=== PATIENT | female | born 1935 | race Hispanic/Latino ===

== ENCOUNTER 2017-05-06 21:31 | Emergency (ER) | payer MEDICARE ==
[2017-05-06 21:32] VITALS: BMI 33.5
[2017-05-06 22:22] VITALS: TEMP 98.2
[2017-05-06 22:29] LABS: ADD MANUAL DIFF? NO
--- NOTE | 2017-05-06 22:37 | ED PDOC ---
Arrival/HPI - General Historian: Patient - History of Present Illness Symptom Onset: Sudden Symptom Course: Unchanged Activities at Onset: Rest - General Chief Complaint: Dizziness/Lightheaded Time Seen by Provider: 05/06/17 21:53 - History of Present Illness Narrative History of Present Illness (Text): 05/06/17 22:38 A 81 year old female, whose past medical history includes open heart surgery, presents to the emergency department complaining of dizziness. Patient stated she was at dinner and felt dizzy which lasted for less than an hour. Patient currently doesn't feel dizzy. Patient notes never experienced feeling dizziness like this in past. Patient denies any chest pain, shortness of breath, cough, fever, vomiting, diarrhea or any other complaints at this time. PMD: Dr. Barbosa Cardiology: Dr. Barajas and Dr. Zamudio (Lane Santos) Associated Symptoms (Text): none (Lane Santos) Past Medical History - Provider Review Nursing Documentation Reviewed: Yes - Cardiac Hx Atrial Fibrillation: Yes Hx Hypotension: Yes Hx Pacemaker: No - Pulmonary Hx Respiratory Disorders: No - Neurological Hx Paralysis: No - HEENT Hx HEENT Disorder: No - Renal Hx Renal Disorder: No - Hematological/Oncological Hx Blood Transfusions: No Hx Blood Transfusion Reaction: No - Integumentary Hx Dermatological Disorder: No - Musculoskeletal/Rheumatological Hx Musculoskeletal Disorders: Yes - Gastrointestinal Hx Gastrointestinal Disorders: No - Genitourinary/Gynecological Hx Genitourinary Disorders: No - Psychiatric Hx Emotional Abuse: No Hx Physical Abuse: No Hx Substance Use: No - Surgical History Hx Cardiac Catheterization: Yes Hx Coronary Artery Bypass Graft: Yes Hx Coronary Stent: Yes - Anesthesia Hx Anesthesia Reactions: No Hx Malignant Hyperthermia: No - Suicidal Assessment Feels Threatened In Home Enviroment: No Family/Social History - Physician Review Nursing Documentation Reviewed: Yes Family/Social History: No Known Family HX Smoking Status: Never Smoked Hx Alcohol Use: No Hx Substance Use: No Allergies/Home Meds Allergies/Adverse Reactions: Allergies No Known Allergies Allergy (Verified 06/05/12 09:10) Home Medications: Home Meds Medication Instructions Recorded Confirmed Sitagliptin Phosphate [Januvia] 100 mg PO DAILY 08/22/13 05/09/17 Aspirin [Lo-Dose Aspirin EC] 81 mg PO DAILY 04/14/17 05/09/17 Famotidine [Heartburn Prevention] 10 mg PO DAILY PRN 04/14/17 05/09/17 Glimepiride [Amaryl] 1 mg PO QPM 04/14/17 05/09/17 Glimepiride [Amaryl] 2 mg PO DAILY 04/14/17 05/09/17 Memantine HCl/Donepezil HCl 1 cap PO BID 04/14/17 05/09/17 [Namzaric 7 mg-10 mg Capsule] Metoprolol Tartrate [Lopressor] 50 mg PO BID 04/14/17 05/09/17 Valsartan [Diovan] 80 mg PO DAILY 04/14/17 05/09/17 Apixaban [Eliquis] 5 mg PO BID 05/05/17 05/09/17 Gabapentin [Neurontin] 100 mg PO BID 05/05/17 05/09/17 Review of Systems - Physician Review All systems were reviewed & negative as marked: Yes - Review of Systems Constitutional: absent: Fevers Respiratory: absent: SOB, Cough Cardiovascular: absent: Chest Pain Gastrointestinal: absent: Diarrhea Neurological: Dizziness. absent: Headache Physical Exam Vital Signs Reviewed: Yes Temperature: Afebrile Blood Pressure: Hypotensive Pulse: Regular Respiratory Rate: Normal Appearance: Positive for: Well-Appearing, Non-Toxic, Comfortable Pain Distress: None Mental Status: Positive for: Alert and Oriented X 3 - Systems Exam Head: Present: Atraumatic, Normocephalic Pupils: Present: PERRL Extroacular Muscles: Present: EOMI Conjunctiva: Present: Normal Mouth: Present: Moist Mucous Membranes Neck: Present: Normal Range of Motion Respiratory/Chest: Present: Clear to Auscultation, Good Air Exchange. No: Respiratory Distress, Accessory Muscle Use Cardiovascular: Present: Regular Rate and Rhythm, Normal S1, S2. No: Murmurs Abdomen: Present: Normal Bowel Sounds. No: Tenderness, Distention, Peritoneal Signs Back: Present: Normal Inspection Upper Extremity: Present: Normal Inspection. No: Cyanosis, Edema Lower Extremity: Present: Normal Inspection. No: Edema Neurological: Present: GCS=15, CN II-XII Intact, Speech Normal Skin: Present: Warm, Dry, Normal Color. No: Rashes Psychiatric: Present: Alert, Oriented x 3, Normal Insight, Normal Concentration Medical Decision Making - Lab Interpretations I have reviewed the lab results: Yes - EKG Interpretation Interpreted by ED Physician: Yes Type: 12 lead EKG ED Course and Treatment: 05/06/17 22:46 EKG: Ordered, reviewed, and independently interpreted the EKG. Rate : 82 BPM Rhythm : Atrial fibrillation Interpretation : Non-specific ST/T wave changes Comparison : Similar to EKG on 10/04/13 CT Head Without Intravenous Contrast FINDINGS: Brain: There is dilatation of sulci gyri and ventricles. There is no midline shift. There is decreased attenuation in periventricular white matter. There are basal ganglia calcifications. There are no focal masses. There are no focal hemorrhages. Cortes-white differentiation is visualized. Ventricles: See above. Bones: Cranial vault is intact. Soft tissues: unremarkable Sinuses: There is no acute sinusitis. Ears and mastoids: Middle ears and mastoids are unremarkable. Orbits: Orbital contents are unremarkable. IMPRESSION: Atrophy and small vessel disease, no bleed Dictated and Authenticated by: Sonya Dias MD 05/07/2017 12:37 AM Eastern Time ([place] & [place]) 05/07/17 00:33 Disc results w the pt and her family. She is resting comfortably, well-appearing , no complaints at this time. They are comfortable w dc home, po abx, pcp f/u, return if worse. (Lane Santos) - Lab Interpretations Microbiology Results: Microbiology Results 05/06/17 22:30 Urine,Clean Catch Urine Culture - Final Escherichia Coli Lab Results: 05/06/17 22:15 05/06/17 22:15 Lab Results 05/06/17 22:30: Urine Color Yellow, Urine Appearance Sl cloudy, Urine pH 6.0, Ur Specific [place] >= 1.030, Urine Protein 30 H, Urine Glucose (UA) Negative, Urine Ketones Trace H, Urine Blood Trace-intact H, Urine Nitrate Positive H, Urine Bilirubin Small H, Urine Urobilinogen 1.0 H, Ur Leukocyte Esterase Moderate H, Urine RBC 2 - 5, Urine WBC Tntc, Ur Epithelial Cells 1 - 3, Urine Bacteria Many 05/06/17 22:15: Sodium 139, Potassium 4.0, Chloride 103, Carbon Dioxide 27, Anion Gap 13, BUN 21, Creatinine 0.9, Est GFR ( Amer) > 60, Est GFR (Non- Af Amer) > 60, Random Glucose 145 H, Calcium 8.7, Total Bilirubin 0.6, AST 28, ALT 24, Alkaline Phosphatase 59, Troponin I < 0.01, Total Protein 7.2, Albumin 3.8, Globulin 3.4, Albumin/Globulin Ratio 1.1 05/06/17 22:15: D-Dimer, Quantitative 0.24 05/06/17 22:15: WBC 8.5, RBC 4.71, Hgb 14.3, Hct 42.7, MCV 90.7, MCH 30.4, MCHC 33.5, RDW 14.0, Plt Count 175, MPV 10.7, Gran % 60.1, Lymph % (Auto) 30.5, [place] % (Auto) 7.3 H, Eos % (Auto) 1.5, Baso % (Auto) 0.6, Gran # 5.09, Lymph # 2.6, [place] # 0.6, Eos # 0.1, Baso # 0.05 - RAD Interpretation Radiology Orders: 05/06/17 22:01 CHEST PORTABLE [RAD] Stat 05/06/17 22:02 HEAD W/O CONTRAST [CT] Stat - Medication Orders Current Medication Orders: Discontinued Medications Ceftriaxone Sodium (Rocephin 1 Gram Ivpb) 1 gm in 100 mls @ 200 mls/hr IVPB STAT STA PRN Reason: Protocol Stop: 05/07/17 00:29 Last Admin: 05/07/17 00:32 Dose: 200 mls/hr Sodium Chloride (Sodium Chloride 0.9%) 1,000 mls @ 999 mls/hr IV .Q1H1M STA Stop: 05/07/17 01:01 Last Admin: 05/07/17 00:32 Dose: 999 mls/hr - Scribe Statement The provider has reviewed the documentation as recorded by the Scribe - Scribe Statement Michael Huang Provider Scribe Attestation: All medical record entries made by the Scribe were at my direction and personally dictated by me. I have reviewed the chart and agree that the record accurately reflects my personal performance of the history, physical exam, medical decision making, and the department course for this patient. I have also personally directed, reviewed, and agree with the discharge instructions and disposition. (Radwine,Lane P) Disposition/Present on Arrival - Present on Arrival Any Indicators Present on Arrival: No History of DVT/PE: No History of Uncontrolled Diabetes: No Urinary Catheter: No History of Decub. Ulcer: No History Surgical Site Infection Following: None - Disposition Have Diagnosis and Disposition been Completed?: Yes Disposition Time: 00:44 - Disposition Diagnosis: UTI (urinary tract infection) Disposition: HOME/ ROUTINE Condition: STABLE Discharge Instructions (ExitCare): Urinary Tract Infection in Women (ED) Additional Instructions: Please follow up with your doctor. Return to the ER for any worsening symptoms, fever, vomiting, or for any other concerns. Referrals: Eunice Barbosa MD [Primary Care Provider] - Follow up with primary Addendum Addendum: 05/10/17 14:46 UC +E. coli. Pt was DC home with Keflex. (Blaise Van)
[2017-05-06 22:40] LABS: BASO # 0.05 K/mm3 (0.0-2.0); BASO % 0.6 % (0.0-3.0); EOS # 0.1 (0.0-0.7); EOS % 1.5 % (1.5-5.0); GRAN # 5.09 (1.4-6.5); GRAN % 60.1 % (50.0-68.0); HEMATOCRIT 42.7 % (36.0-48.0); LYMPH # 2.6 (1.2-3.4); LYMPH % 30.5 % (22.0-35.0); MEAN CELL VOLUME 90.7 fL (80.0-105.0); MEAN CORPUSCULAR HEMOGLOBIN 30.4 pg (25.0-35.0); MEAN CORPUSCULAR HGB CONC 33.5 g/dl (31.0-37.0); MEAN PLATELET VOLUME 10.7 fl (7.0-11.0); MONO # 0.6 (0.1-0.6); MONO % 7.3 % (1.0-6.0); PLATELET COUNT 175 10^3/uL (120.0-450.0); WHITE BLOOD COUNT 8.5 10^3/ul (4.5-11.0)
[2017-05-06 22:51] LABS: ALB/GLOB RATIO 1.1 (1.1-1.8); ALKALINE PHOSPHATASE 59 U/L (38-133); ALT/SGPT 24 U/L (7-56); AST/SGOT 28 U/L (15-39); BILIRUBIN,TOTAL 0.6 mg/dL (0.2-1.3); BLOOD UREA NITROGEN 21 mg/dL (7-21); CALCIUM 8.7 mg/dL (8.4-10.5); CARBON DIOXIDE 27 mmol/L (21-33); CHLORIDE 103 mmol/L (98-107); GFR AFRICAN-AMERICAN > 60; GLUCOSE,RANDOM 145 mg/dL (70-110); SODIUM 139 mmol/L (132-148); TOTAL PROTEIN 7.2 g/dL (5.8-8.3)
[2017-05-06 22:51] LABS: URINE BILIRUBIN SMALL (NEGATIVE); URINE BLOOD TRACE-INTACT (NEGATIVE); URINE GLUCOSE (UA) NEGATIVE (NEGATIVE); URINE KETONE TRACE mg/dL (NEGATIVE); URINE LEUKOCYTE ESTERASE MODERATE Leu/uL (NEGATIVE); URINE PROTEIN 30 mg/dL (<30 mg/dL)
[2017-05-06 22:55] LABS: URINE APPEARANCE SL CLOUDY (CLEAR); URINE COLOR YELLOW (YELLOW)
[2017-05-06 23:02] LABS: URINE BACTERIA MANY (NEG); URINE WBC TNTC /hpf (0-6)
[2017-05-06 23:05] LABS: TROPONIN I < 0.01 ng/mL
[2017-05-07] MEDS ORDERED: cefTRIAXone 1 gm 1 GM/100 ML BAG IVPB STA
[2017-05-07] MEDS ORDERED: Sodium Chloride 0.9% 1,000 ML IV STA (00:01)
--- NOTE | 2017-05-07 00:37 | CT ---
EXAM: CT Head Without Intravenous Contrast CLINICAL HISTORY: 81 years old, female; Signs and symptoms; Dizziness; Additional info: Dizzy TECHNIQUE: Axial computed tomography images of the head/brain without intravenous contrast. This CT exam was performed using one or more of the following dose reduction techniques: automated exposure control, adjustment of the mA and/or kV according to patient size, and/or use of iterative reconstruction technique. EXAM DATE/TIME: 05/06/2017 10:02 PM COMPARISON: MR - BRAIN W WO CONTRAST 08/09/2016 11:36:22 AM FINDINGS: Brain: There is dilatation of sulci gyri and ventricles. There is no midline shift. There is decreased attenuation in periventricular white matter. There are basal ganglia calcifications. There are no focal masses. There are no focal hemorrhages. Cortes-white differentiation is visualized. Ventricles: See above. Bones: Cranial vault is intact. Soft tissues: unremarkable Sinuses: There is no acute sinusitis. Ears and mastoids: Middle ears and mastoids are unremarkable. Orbits: Orbital contents are unremarkable. IMPRESSION: Atrophy and small vessel disease, no bleed
[2017-05-07 01:54] VITALS: BP 140/64; PULSE 77; RESP 16; O2SAT 95
--- NOTE | 2017-05-07 08:40 | RAD ---
HISTORY: Lightheaded COMPARISON: None available. TECHNIQUE: Chest, one view. FINDINGS: Three external cardiac leads identified. LUNGS: No focal consolidation. Please note that chest x-ray has limited sensitivity for the detection of pulmonary masses. PLEURA: No significant pleural effusion identified. No definite pneumothorax . CARDIOVASCULAR: Cardiomegaly. Median sternotomy wires. OSSEOUS STRUCTURES: No acute osseous abnormality identified. VISUALIZED UPPER ABDOMEN: Unremarkable. OTHER FINDINGS: None. IMPRESSION: No focal consolidation, significant pleural effusion, or definite pneumothorax identified.
--- NOTE | 2017-05-07 15:51 | CARD ---
APPROVED REPORT EKG Measurement Heart [id number] <Conclusion> Atrial fibrillation ST & T wave abnormality, consider inferolateral ischemia or digitalis effect Abnormal ECG
== END 2017-05-07 01:57 | disposition home or self-care (01) ==
LOC: ED 21:31
DX: N39.0 Urinary tract infection, site not specified (principal); I95.9 Hypotension, unspecified; Z95.1 Presence of aortocoronary bypass graft
CPT/HCPCS: 70450; 71010; 80053; 81001; 84484; 85025; 85378; 87086; 87181; 93005; 96365; 99285; J0696; J7040

== ENCOUNTER 2017-05-09 09:31 | Day surgery (SDC) | payer MEDICARE ==
[2017-05-09] MEDS ORDERED: Midazolam 2 MG/2 ML VIAL ONE (11:50)
[2017-05-09] MEDS ORDERED: Metoprolol 1 mg/ml Inj IVP ONE (11:51)
[2017-05-09] MEDS ORDERED: Flumazenil 0.1 mg/ml Inj (5ml) IVP ONE ×2 (11:51→12:32)
[2017-05-09] MEDS ORDERED: Naloxone 0.4 mg/ml Inj (Adult) ONE (11:51)
[2017-05-09] MEDS ORDERED: Midazolam 2 MG/2 ML VIAL IV ONE ×3 (12:02→12:16)
--- NOTE | 2017-05-09 12:43 | CP.SDSHP ---
Same Day Surgery H & P - History Proposed Procedure: insertion of venous port. Pre-Op Diagnosis: iron defficiency anemia. - Previous Medical/Surgical History Cardiac: Hypertension, ASHD/CAD, Hx of CHF Pulmonary: Emphysema/COPD, Smoking Endocrine/Metabolic: Diabetes, Obesity Neuro: Seizure Disorder, Backaches Misc: Anemia Pain: 0. No Pain Comments: colon resection.ptca. Previous Surgical History: PTCA.COLON RESECTION. - Allergies Allergies: Allergies No Known Allergies Allergy (Verified 06/05/12 09:10) - Physical Exam General Appearance: WNL. Vital Signs: Vital Signs 05/09/17 10:04 Temperature 97.5 F L Pulse Rate 85 Respiratory 20 Rate Blood Pressure 137/79 O2 Sat by Pulse 96 Oximetry Mental Status: Alert & Oriented x3 Neuro: WNL Heart: WNL Lungs: WNL GI: WNL - {Optional Preform as Required} Other Pertinent Findings: depression . parkinsonism hx of syncopesleep apnea. - Impression Impression: IRON DEFFICIENCY ANEMIA. - Date & Time Date: 05/09/17 Time: 12:40 Short Stay Discharge - Short Stay Discharge Admitting Diagnosis/Reason for Visit: A FIB Disposition: HOME/ ROUTINE Referrals: Eunice Barbosa MD [Primary Care Provider] -
[2017-05-09] MEDS ORDERED: Sodium Chloride 0.9% 1,000 ML IV SCH (12:45)
[2017-05-09 13:58] VITALS: RESP 18; TEMP 97.8; O2SAT 92
[2017-05-09 14:13] VITALS: BP 118/41; PULSE 50
--- NOTE | 2017-05-09 18:31 | CARD ---
APPROVED REPORT EXAM: Transesophageal echocardiogram with color flow Doppler and Synchronized Cardioversion. INDICATION Atrial Fibrillation 2D DIMENSIONS Left Atrium (2D)5.6 (1.6-4.0cm) Mitral Valve E/A ratio0.0 TDI E/Lateral E'0.0E/Medial E'0.0 Tricuspid Valve TR Peak Zsycedot790xm/sRAP [id number] Peak Gr.23mmHg [id number] Reason For Test : ZEKE and Cardioversion PROCEDURE After obtaining informed consent, patient underwent transesophageal echo in the Echo Lab. Type of Sedation : Conscious Sedation Sedation was administered by Dr. Zamudio. Sedation was achieved with Versed and , Fentanyl 3 mg and 100 mcg intravenously. Transesophageal probe was inserted and advanced into esophagus without difficulty. Echo enhancement indication: R/O Septal defect. Echo enhancement agent administered: Agitated Saline The ZEKE was performed without complications. Synchronized Cardioversion attempted: Successful Synchronized Cardioversion acheived with 200 Joules after first attempt(s). Rhythm following Synchronized Cardioversion: Normal Sinus Rhythm Throughout the procedure, the blood pressure, pulse oximetry, cardiac rhythm, and rate were monitored. The patient tolerated the procedure without adverse effects. Recovery from conscious sedation was uneventful and vital signs were stable. LEFT VENTRICLE The left ventricle is normal size. There is mild left ventricular hypertrophy. The left ventricular function is normal.EF-55% ( A fib) There is normal LV segmental wall motion. A fib No left ventricle thrombus noted on this study. There is no ventricular septal defect visualized. There is no left ventricular aneurysm. There is no mass noted in the left ventricle. RIGHT VENTRICLE The right ventricle is mildly dilated. There is normal right ventricular wall thickness. Systolic function is mildly reduced. ATRIA The left atrium is moderately dilated. The right atrium is mildly dilated. The interatrial septum is intact with no evidence for an atrial septal defect. AORTIC VALVE The aortic valve is moderately sclerotic. There is mild aortic regurgitation. There is no aortic valvular stenosis. There is no aortic valvular vegetation. MITRAL VALVE The mitral valve leaflets are thickened. There is no evidence of mitral valve prolapse. There is no mitral valve stenosis. Mitral regurgitation is moderate. TRICUSPID VALVE The tricuspid valve leaflets display thickening. There is moderate tricuspid regurgitation.RVSP-33 mmof Hg There is no tricuspid valve prolapse or vegetation. There is no tricuspid valve stenosis. PULMONIC VALVE The pulmonary valve is normal in structure. There is mild pulmonic valvular regurgitation. There is no pulmonic valvular stenosis. GREAT VESSELS The aortic root is normal in size. The ascending aorta is normal in size. The pulmonary artery is normal. The IVC is normal in size and collapses >50% with inspiration. PERICARDIAL EFFUSION There is no pericardial effusion. There is no pleural effusion. <Conclusion> Intact Intra atrial Septum by Colorflow and bubble study. EF-55% ( A Fib) No by ZEKE Aortic Valve sclerotic but adequate Excursion Mild AR, Moderate TR/MR; RVSP-33 mmof hg. Modrate Plaque in Descending aorta Velocity in RUTHY less than 0.3 M/S with thick Smoke in RUTH[place] and [place]. No absolute Contra Indication to Cardioversion noted, 200 Joules Synchronized Cardioversion done. pt converted to NSR. CC; Drs. Nieves/ Karl.
--- NOTE | 2017-05-10 17:49 | CARD ---
APPROVED REPORT EKG Measurement Heart [id number] <Conclusion> Marked sinus bradycardia Nonspecific T wave abnormality Abnormal ECG
== END 2017-05-09 15:40 | disposition home or self-care (01) ==
LOC: TEE 09:31 → EDSTATUS 11:00 → TEE 15:40
PROVIDERS: ATTEND Internal Medicine Cardiovascular Disease
DX: I48.91 Unspecified atrial fibrillation (principal); I08.3 Combined rheumatic disorders of mitral, aortic and tricuspid valves; I11.0 Hypertensive heart disease with heart failure; I50.9 Heart failure, unspecified; J44.9 Chronic obstructive pulmonary disease, unspecified; E11.9 Type 2 diabetes mellitus without complications; G40.909 Epilepsy, unspecified, not intractable, without status epilepticus; D50.9 Iron deficiency anemia, unspecified; Z79.84 Long term (current) use of oral hypoglycemic drugs
CPT/HCPCS: 92960; 93005; 93312; J2250; J3010; J7040 ×2

== ENCOUNTER 2017-08-05 15:09 | Emergency (ER) | payer MEDICARE ==
[2017-08-05 15:12] VITALS: BMI 32.5
[2017-08-05 15:18] VITALS: TEMP 98.4
[2017-08-05] MEDS ORDERED: Sodium Chloride 0.9% 1,000 ML IV STA (15:37)
--- NOTE | 2017-08-05 15:44 | ED PDOC ---
Arrival/HPI - General Chief Complaint: Medical Clearance Time Seen by Provider: 08/05/17 15:36 - History of Present Illness Narrative History of Present Illness (Text): 81 y/o F c PMHx Afib on Eliquis, HTN, DM p/w shaking chills since yesterday. Patient also reports general weakness of bilateral lower extremities, causing them to give out on her. She reports poor appetite. She notes epigastric abdominal pain, mild in severity, nonradiating, constant. Denies fever, vomiting , cough, dyspnea, dysuria, hematuria, constipation, diarrhea. Seen by Dr. Nieves PMD in office today, found to be mildly hypotensive compared to baseline (95/70, normally 130s) and instructed to come to ED for further evaluation. Past Medical History - Infectious Disease Hx of Infectious Diseases: None - Reproductive Menopause: Yes - Cardiac Hx Atrial Fibrillation: Yes Hx Hypertension: Yes Other/Comment: triple by pass. stent 1 - Pulmonary Hx Respiratory Disorders: No - Neurological Hx Paralysis: No - HEENT Hx HEENT Disorder: No - Renal Hx Renal Disorder: No - Endocrine/Metabolic Hx Diabetes Mellitus Type 2: Yes - Hematological/Oncological Hx Blood Transfusions: No Hx Blood Transfusion Reaction: No - Integumentary Hx Dermatological Disorder: No - Musculoskeletal/Rheumatological Hx Musculoskeletal Disorders: Yes - Gastrointestinal Hx Gastrointestinal Disorders: No - Genitourinary/Gynecological Hx Genitourinary Disorders: No - Psychiatric Hx Emotional Abuse: No Hx Physical Abuse: No Hx Substance Use: No - Surgical History Hx Cardiac Catheterization: Yes Hx Coronary Artery Bypass Graft: Yes Hx Coronary Stent: Yes - Anesthesia Hx Anesthesia Reactions: No Hx Malignant Hyperthermia: No - Suicidal Assessment Feels Threatened In Home Enviroment: No Family/Social History Family/Social History: No Known Family HX Smoking Status: Never Smoked Hx Alcohol Use: No Hx Substance Use: No Allergies/Home Meds Allergies/Adverse Reactions: Allergies No Known Allergies Allergy (Verified 06/05/12 09:10) Home Medications: Home Meds Medication Instructions Recorded Confirmed Sitagliptin Phosphate [Januvia] 100 mg PO DAILY 08/22/13 08/05/17 Aspirin [Lo-Dose Aspirin EC] 81 mg PO DAILY 04/14/17 08/05/17 Famotidine [Heartburn Prevention] 10 mg PO DAILY PRN 04/14/17 08/05/17 Glimepiride [Amaryl] 1 mg PO QPM 04/14/17 08/05/17 Glimepiride [Amaryl] 2 mg PO DAILY 04/14/17 08/05/17 Memantine HCl/Donepezil HCl 1 cap PO BID 04/14/17 08/05/17 [Namzaric 7 mg-10 mg Capsule] Metoprolol Tartrate [Lopressor] 50 mg PO BID 04/14/17 08/05/17 Valsartan [Diovan] 80 mg PO DAILY 04/14/17 08/05/17 Apixaban [Eliquis] 5 mg PO BID 05/05/17 08/05/17 Gabapentin [Neurontin] 100 mg PO BID 05/05/17 08/05/17 Review of Systems - Physician Review All systems were reviewed & negative as marked: Yes - Review of Systems Constitutional: absent: Fevers Cardiovascular: absent: Chest Pain Physical Exam - Physical Exam Narrative Physical Exam (Text): Constitutional: No acute distress. Head: Normocephalic. Atraumatic. Eyes: PERRL. ENT: Moist mucous membranes. Neck: Supple. Cardiovascular: Regular rate. Chest: No tenderness. Respiratory: Clear to auscultation bilaterally. GI: Epigastric tenderness with guarding, no rebound. Back: No CVA tenderness. Musculoskeletal: No tenderness or swelling of extremities. Skin: No rash. Neurologic: Alert, no focal deficit. CN II to XII intact. No facial droop. Motor 5/5 x 4. Sensation to light touch intact bilaterally. FTN, HTS normal. Vital Signs Temp Pulse Resp BP Pulse Ox 08/05/17 16:45 98 H 18 99/65 L 95 08/05/17 15:09 98.4 F 104 H 16 93/62 L 95 Finger Stick Blood Glucose: 127 Medical Decision Making ED Course and Treatment: Differential includes dehydration, viral illness, sepsis, pancreatitis, gastritis, GERD. Will evaluate further with labs, urine, CT, EKG, CXR, CT abdomen. Treat with IVF initially. 08/05/17 18:20 Patient states he feels much better. BP now 120s/58 at bedside. Discussed case with Dr. Salgado who agrees with discharge, and he states he will inform Dr. Nieves of results. - Lab Interpretations Lab Results: 08/05/17 16:20 08/05/17 16:20 Lab Results 08/05/17 16:20: Sodium 139, Chloride 100, Potassium 4.3, Carbon Dioxide 28, Anion Gap 15, BUN 24 H, Creatinine 0.9, Est GFR ( Amer) > 60, Est GFR ( Non-Af Amer) > 60, Random Glucose 104, Calcium 8.7, Total Bilirubin 1.2, AST 23 , ALT 30, Alkaline Phosphatase 56, Total Protein 7.6, Albumin 4.1, Globulin 3.5 , Albumin/Globulin Ratio 1.2, Lipase 32 08/05/17 16:20: pO2 30, VBG pH 7.29 L, VBG pCO2 63.0 H, VBG HCO3 30.3 H, VBG Total CO2 32.2 H, VBG O2 Sat (Calc) 56.4, VBG Base Excess 2.0, VBG Potassium 4.3 , Sodium 135.0, Chloride 102.0, Glucose 110 H, Lactate 1.2, FiO2 21.0, Venous Blood Potassium 4.3 08/05/17 16:20: Urine Color Yellow, Urine Appearance Clear, Urine pH 6.0, Ur Specific [place] 1.020, Urine Protein Negative, Urine Glucose (UA) Negative, Urine Ketones Negative, Urine Blood Negative, Urine Nitrate Negative, Urine Bilirubin Negative, Urine Urobilinogen 0.2, Ur Leukocyte Esterase Trace H, Urine RBC 0 - 2, Urine WBC 2 - 5, Ur Epithelial Cells 1 - 3, Urine Bacteria Mod 08/05/17 16:20: PT 12.9 H, INR 1.19 H, APTT 39.7 H 08/05/17 16:20: WBC 10.0, RBC 4.61, Hgb 14.1, Hct 42.2, MCV 91.5, MCH 30.6, MCHC 33.4, RDW 14.7 H, Plt Count 167, MPV 10.6, Gran % 62.4, Lymph % (Auto) 28.0 , [place] % (Auto) 8.5 H, Eos % (Auto) 0.8 L, Baso % (Auto) 0.3, Gran # 6.25, Lymph # 2.8, [place] # 0.9 H, Eos # 0.1, Baso # 0.03 - RAD Interpretation Radiology Orders: 08/05/17 15:37 ABD & PELVIS IV CONTRAST ONLY [CT] Stat CHEST TWO VIEWS (PA/LAT) [RAD] Stat - Medication Orders Current Medication Orders: Discontinued Medications Sodium Chloride (Sodium Chloride 0.9%) 1,000 mls @ 999 mls/hr IV .Q1H1M STA Stop: 08/05/17 16:37 Last Admin: 08/05/17 16:15 Dose: 999 mls/hr Iohexol (Omnipaque 350 100 Ml) Confirm Administered Dose 350 mg .ROUTE .STK-MED ONE Stop: 08/05/17 17:34 Disposition/Present on Arrival - Present on Arrival Any Indicators Present on Arrival: No History of DVT/PE: No History of Uncontrolled Diabetes: No Urinary Catheter: No History of Decub. Ulcer: No History Surgical Site Infection Following: None - Disposition Have Diagnosis and Disposition been Completed?: Yes Diagnosis: Dehydration, mild Disposition: HOME/ ROUTINE Disposition Time: 18:20 Patient Plan: Discharge Condition: STABLE Prescriptions: Ondansetron ODT [Zofran ODT] 4 mg PO Q8 #12 odt Referrals: Eunice Barbosa MD [Primary Care Provider] - Follow up with primary Forms: KUBOO (Frisian)
[2017-08-05 16:32] LABS: URINE BILIRUBIN NEGATIVE (NEGATIVE); URINE BLOOD NEGATIVE (NEGATIVE); URINE GLUCOSE (UA) NEGATIVE (NEGATIVE); URINE KETONE NEGATIVE (NEGATIVE); URINE LEUKOCYTE ESTERASE TRACE Leu/uL (NEGATIVE); URINE PROTEIN NEGATIVE mg/dL (<30 mg/dL); URINE UROBILINOGEN 0.2 E.U./dL (<1 E.U./dL)
[2017-08-05 16:36] LABS: URINE APPEARANCE CLEAR (CLEAR); URINE COLOR YELLOW (YELLOW)
[2017-08-05 16:44] LABS: VENOUS BLOOD PH 7.29 (7.32-7.43)
[2017-08-05 16:45] LABS: BASO # 0.03 K/mm3 (0.0-2.0); BASO % 0.3 % (0.0-3.0); EOS # 0.1 (0.0-0.7); EOS % 0.8 % (1.5-5.0); GRAN # 6.25 (1.4-6.5); GRAN % 62.4 % (50.0-68.0); HEMATOCRIT 42.2 % (36.0-48.0); LYMPH # 2.8 (1.2-3.4); MEAN CELL VOLUME 91.5 fl (80.0-105.0); MEAN CORPUSCULAR HEMOGLOBIN 30.6 pg (25.0-35.0); MEAN CORPUSCULAR HGB CONC 33.4 g/dl (31.0-37.0); MEAN PLATELET VOLUME 10.6 fl (7.0-11.0); MONO # 0.9 (0.1-0.6); MONO % 8.5 % (1.0-6.0); RED CELL DISTRIBUTION WIDTH 14.7 % (11.5-14.5)
[2017-08-05 16:47] LABS: URINE RBC 0 - 2 /hpf (0-2)
[2017-08-05 16:48] LABS: URINE BACTERIA MOD (NEG)
[2017-08-05 16:55] LABS: ALB/GLOB RATIO 1.2 (1.1-1.8); ALKALINE PHOSPHATASE 56 U/L (38-126); ALT/SGPT 30 U/L (7-56); AST/SGOT 23 U/L (14-36); BILIRUBIN,TOTAL 1.2 mg/dL (0.2-1.3); BLOOD UREA NITROGEN 24 mg/dL (7-21); CALCIUM 8.7 mg/dL (8.4-10.5); CARBON DIOXIDE 28 mmol/L (21-33); CHLORIDE 100 mmol/L (98-107); GFR AFRICAN-AMERICAN > 60; GLUCOSE,RANDOM 104 mg/dL (70-110); LIPASE 32 U/L (23-300); POTASSIUM 4.3 mmol/L (3.6-5.0); SODIUM 139 mmol/L (132-148); TOTAL PROTEIN 7.6 g/dL (5.8-8.3)
[2017-08-05 17:02] LABS: INR 1.19 (0.93-1.08); PARTIAL THROMBOPLASTIN TIME 39.7 Seconds (23.7-30.8)
[2017-08-05] MEDS ORDERED: Iohexol 350 MG/100 ML VIAL ONE (17:33)
--- NOTE | 2017-08-05 18:18 | CT ---
PROCEDURE: CT Abdomen and Pelvis with contrast HISTORY: abdominal pain COMPARISON: None. TECHNIQUE: Contrast dose: 100 cc of Omnipaque 300 Radiation dose: Total exam DLP = 588 mGy-cm. This CT exam was performed using one or more of the following dose reduction techniques: Automated exposure control, adjustment of the mA and/or kV according to patient size, and/or use of iterative reconstruction technique. FINDINGS: LOWER THORAX: Unremarkable. LIVER: Unremarkable. No gross lesion or ductal dilatation. GALLBLADDER AND BILE DUCTS: Unremarkable. PANCREAS: Unremarkable. No gross lesion or ductal dilatation. SPLEEN: Unremarkable. ADRENALS: Unremarkable. No mass. KIDNEYS AND URETERS: Unremarkable. No hydronephrosis. No solid mass. VASCULATURE: Unremarkable. No aortic aneurysm. BOWEL: There is diffuse left-sided colonic diverticulosis.. No obstruction. No gross mural thickening. APPENDIX: Normal appendix. PERITONEUM: Unremarkable. No free fluid. No free air. LYMPH NODES: Unremarkable. No enlarged lymph nodes. BLADDER: Unremarkable. REPRODUCTIVE: Unremarkable. BONES: No acute fracture. OTHER FINDINGS: None. IMPRESSION: Diffuse colonic diverticulosis. Gallstones.
[2017-08-05 19:03] VITALS: BP 100/70; PULSE 92; RESP 17; O2SAT 96
--- NOTE | 2017-08-06 13:22 | CARD ---
APPROVED REPORT EKG Measurement Heart [id number] <Conclusion> Atrial fibrillation ST & T wave abnormality, consider lateral ischemia or digitalis effect Abnormal ECG
--- NOTE | 2017-08-06 17:21 | RAD ---
HISTORY: weakness, chills COMPARISON: Comparison chest 05/06/2017 TECHNIQUE: Chest PA and lateral FINDINGS: LUNGS: Poor inspiration low lung volumes and crowded bronchovascular markings. Left lower lobe opacity could secondary to under penetration however atelectasis and or infiltrate changes within the left anterior lung base -lingular region not excluded. PLEURA: No significant pleural effusion identified. No pneumothorax apparent. CARDIOVASCULAR: No sternotomy wires. Cardiomegaly. OSSEOUS STRUCTURES: No significant abnormalities. VISUALIZED UPPER ABDOMEN: Normal. OTHER FINDINGS: None. IMPRESSION: Poor inspiration low lung volumes and crowded bronchovascular markings. Left lower lobe opacity could secondary to under penetration however atelectasis and or infiltrate changes within the left anterior lung base -lingular region not excluded.
== END 2017-08-05 19:01 | disposition home or self-care (01) ==
LOC: ED 15:09
DX: E86.0 Dehydration (principal); I10 Essential (primary) hypertension; E11.9 Type 2 diabetes mellitus without complications; I48.91 Unspecified atrial fibrillation; Z79.01 Long term (current) use of anticoagulants
CPT/HCPCS: 71020; 74177; 80053; 81001; 82803; 83690; 85025; 85610; 85730; 87040; 87086; 93005; 96360; 99284; J7040; Q9967

== ENCOUNTER 2018-10-19 18:33 | Inpatient (IN) | payer MEDICARE, OTHER ==
[2018-10-19 18:40] VITALS: BMI 34.4
--- NOTE | 2018-10-19 19:07 | ED PDOC ---
Arrival/HPI - General Chief Complaint: Shortness Of Breath Time Seen by Provider: 10/19/18 18:41 Historian: Patient - History of Present Illness Narrative History of Present Illness (Text): 10/19/18 19:04 83 year old female, with past medical history of CABG, htn, and diabetes, presents to the Emergency department complaining of shortness of breath, sore throat and fatigue since few days. Patient reports visiting her PMD with the presented symptoms, who subsequently referred patient to the Emergency department for medical evaluation. Patient denies any other associated somatic complaints. Patient denies any fevers, chills, headache, dizziness, chest pain, abdominal pain, nausea, vomiting, diarrhea, back pain, neck pain, or any other complaints. Time/Duration: < week Symptom Onset: Gradual Symptom Course: Unchanged Activities at Onset: Light Context: Home Past Medical History - Provider Review Nursing Documentation Reviewed: Yes - Infectious Disease Hx of Infectious Diseases: None - Cardiac Hx Hypertension: Yes - Pulmonary Hx Respiratory Disorders: No - Neurological Hx Paralysis: No - HEENT Hx HEENT Disorder: No - Renal Hx Renal Disorder: No - Endocrine/Metabolic Hx Diabetes Mellitus Type 2: Yes - Hematological/Oncological Hx Blood Transfusions: No Hx Blood Transfusion Reaction: No - Integumentary Hx Dermatological Disorder: No - Musculoskeletal/Rheumatological Hx Musculoskeletal Disorders: Yes - Gastrointestinal Hx Gastrointestinal Disorders: No - Genitourinary/Gynecological Hx Genitourinary Disorders: No - Psychiatric Hx Emotional Abuse: No Hx Physical Abuse: No Hx Substance Use: No - Surgical History Hx Coronary Artery Bypass Graft: Yes - Anesthesia Hx Anesthesia Reactions: No Hx Malignant Hyperthermia: No - Suicidal Assessment Feels Threatened In Home Enviroment: No Family/Social History - Physician Review Nursing Documentation Reviewed: Yes Family/Social History: Unknown Family HX Smoking Status: Never Smoked Hx Alcohol Use: No Hx Substance Use: No Allergies/Home Meds Allergies/Adverse Reactions: Allergies No Known Allergies Allergy (Verified 06/05/12 09:10) Home Medications: Home Meds Medication Instructions Recorded Confirmed Sitagliptin Phosphate [Januvia] 100 mg PO DAILY 08/22/13 02/24/18 Aspirin [Lo-Dose Aspirin EC] 81 mg PO DAILY 04/14/17 02/24/18 Famotidine [Heartburn Prevention] 10 mg PO DAILY PRN 04/14/17 02/24/18 Glimepiride [Amaryl] 1 mg PO BID 04/14/17 02/24/18 Memantine HCl/Donepezil HCl 1 cap PO BID 04/14/17 02/24/18 [Namzaric 7 mg-10 mg Capsule] Metoprolol Tartrate [Lopressor] 50 mg PO BID 04/14/17 02/24/18 Valsartan [Diovan] 80 mg PO DAILY 04/14/17 02/24/18 Apixaban [Eliquis] 5 mg PO BID 05/05/17 02/24/18 Pregabalin [Lyrica] 50 mg PO BID 02/24/18 02/24/18 Review of Systems - Physician Review All systems were reviewed & negative as marked: Yes - Review of Systems Constitutional: Fatigue. absent: Fevers ENT: Sore Throat Respiratory: SOB Cardiovascular: absent: Chest Pain Gastrointestinal: absent: Abdominal Pain, Diarrhea, Nausea, Vomiting Genitourinary Female: absent: Dysuria, Urine Output Changes Musculoskeletal: absent: Back Pain, Neck Pain Skin: absent: Rash Neurological: absent: Headache, Dizziness Physical Exam Vital Signs Reviewed: Yes Vital Signs Temp Pulse Resp BP Pulse Ox 10/19/18 18:50 98.9 F 102 H 20 146/66 96 Temperature: Afebrile Blood Pressure: Normal Pulse: Regular Respiratory Rate: Normal Appearance: Positive for: Well-Appearing, Non-Toxic, Comfortable Pain Distress: None Mental Status: Positive for: Alert and Oriented X 3 - Systems Exam Head: Present: Atraumatic, Normocephalic Pupils: Present: PERRL Extroacular Muscles: Present: EOMI Conjunctiva: Present: Normal Mouth: Present: Moist Mucous Membranes. No: Drooling Pharnyx: Present: Other (No voice changes, no signs of abscess). No: Uvular Deviation (Uvula midline) Neck: Present: Normal Range of Motion. No: JVD Respiratory/Chest: Present: Clear to Auscultation, Good Air Exchange. No: Respiratory Distress, Accessory Muscle Use Cardiovascular: Present: Regular Rate and Rhythm, Normal S1, S2. No: Murmurs Abdomen: No: Tenderness, Distention, Peritoneal Signs Back: Present: Normal Inspection Upper Extremity: Present: Normal Inspection. No: Cyanosis, Edema Lower Extremity: Present: Normal Inspection. No: Edema Neurological: Present: GCS=15, CN II-XII Intact, Speech Normal Skin: Present: Warm, Dry, Normal Color. No: Rashes Psychiatric: Present: Alert, Oriented x 3, Normal Insight, Normal Concentration Medical Decision Making ED Course and Treatment: 10/19/18 19:02 Impression: 83 year old female presents to the Emergency department complaining shortness of breath, sore throat and fatigue. Differential Diagnosis included but are not limited to: Strep pharyngitis, pneumonia Plan: --VBG -- EKG -- Labs -- Chest X-ray -- Rapid Strep -- Reassess and disposition Prior Visits: Notes and results from previous visits were reviewed. Progress Notes: Sign out to Dr Rader pending ct soft tissue neck and reassess. - RAD Interpretation Radiology Orders: 10/19/18 19:03 CHEST PORTABLE [RAD] Stat - Scribe Statement The provider has reviewed the documentation as recorded by the Scribe Rene Ramirez. All medical record entries made by the Scribe were at my direction and personally dictated by me. I have reviewed the chart and agree that the record accurately reflects my personal performance of the history, physical exam, medical decision making, and the department course for this patient. I have also personally directed, reviewed, and agree with the discharge instructions and disposition. Disposition/Present on Arrival - Present on Arrival Any Indicators Present on Arrival: No History of DVT/PE: No History of Uncontrolled Diabetes: No Urinary Catheter: No History of Decub. Ulcer: No History Surgical Site Infection Following: None - Disposition Have Diagnosis and Disposition been Completed?: Yes Diagnosis: Upper respiratory infection Disposition Time: 21:00 Condition: GOOD Forms: [employer] (Turkmen)
[2018-10-19 19:24] LABS: VENOUS BLOOD GAS BASE EXCESS -1.5 mmol/L (0.0-2.0); VENOUS BLOOD GAS PO2 123 mm/Hg (30-55); VENOUS BLOOD PH 7.37 (7.32-7.43)
[2018-10-19 19:27] LABS: BASO # 0.02 K/mm3 (0.0-2.0); BASO % 0.2 % (0.0-3.0); EOS % 0.1 % (1.5-5.0); GRAN # 9.11 (1.4-6.5); GRAN % 84.1 % (50.0-68.0); LYMPH # 1.2 (1.2-3.4); LYMPH % 10.8 % (22.0-35.0); MEAN CELL VOLUME 90.4 fl (80.0-105.0); MEAN CORPUSCULAR HEMOGLOBIN 29.9 pg (25.0-35.0); MEAN PLATELET VOLUME 10.8 fl (7.0-11.0); MONO # 0.5 (0.1-0.6); MONO % 4.8 % (1.0-6.0); RBC 4.69 10^6/uL (3.5-6.1); RED CELL DISTRIBUTION WIDTH 13.3 % (11.5-14.5); WHITE BLOOD COUNT 10.8 10^3/uL (4.5-11.0)
[2018-10-19 19:37] LABS: ALT/SGPT 19 U/L (7-56); AST/SGOT 21 U/L (14-36); BLOOD UREA NITROGEN 14 mg/dL (7-21); CALCIUM 8.3 mg/dL (8.4-10.5); GFR NON-AFRICAN AMERICAN > 60
[2018-10-19 19:48] LABS: TROPONIN I < 0.01 ng/mL
[2018-10-19] MEDS ORDERED: Iohexol 350 MG/100 ML VIAL ONE (21:07)
[2018-10-19] MEDS ORDERED: Azithromycin 500MG/NS 250ml 500 MG/250 ML BAG IVPB STA (21:25)
--- NOTE | 2018-10-19 22:26 | ED PDOC ---
Physical Exam Vital Signs Temp Pulse Resp BP Pulse Ox 10/19/18 21:49 99.1 F 98 H 18 156/67 H 93 L 10/19/18 19:28 94 H 18 148/94 H 97 10/19/18 19:05 20 96 10/19/18 18:50 98.9 F 102 H 20 146/66 96 Medical Decision Making ED Course and Treatment: 10/19/18 21:05 Patient endorsed to me by Dr. Neri pending CT results. 10/19/18 22:20 CT Neck with Intravenous Contrast. CLINICAL HISTORY: SORE THROAT - DIFFICULTY SWALLOWING TECHNIQUE: Axial computed tomography images of the neck with intravenous contrast. Sagittal and coronal reformatted images were generated. 430.88 mGy-cm CONTRAST: With; OMNI 350 100 ml COMPARISON: None provided. FINDINGS: PHARYNX: Unremarkable appearance of the nasopharynx, oropharyx, and hypopharynx. No pharyngeal mucosal based mass lesions. LARYNX: The larynx is unremarkable. The epiglottis appears normal. RETROPHARYNGEAL SPACE: No retropharyngeal soft tissue swelling or gas. SALIVARY GLANDS: No salivary gland abnormality evident. Unremarkable appearance of the parotid, submandibular, and sublingual glands. LYMPH NODES: No significant lymphadenopathy. THYROID: Unremarkable appearance of the thyroid. No thyroid nodule seen. BONES: No aggressive appearing osseous lesion. No acute osseous abnormality. IMPRESSION: Unremarkable CT neck with IV contrast. 10/19/18 22:43 Patient hypotix to 93% on room air. Did not tolerate PO medication. Will require admission. Dr. Harman accepts patient to hospitalist service. - Lab Interpretations Lab Results: 10/19/18 19:22 10/19/18 19:22 Lab Results 10/19/18 21:08: Influenza Typ A,B (EIA) Negative for flu a/b 10/19/18 19:22: Sodium 135, Chloride 102, Potassium 4.7, Carbon Dioxide 25, Anion Gap 14, BUN 14, Creatinine 0.8, Est GFR ( Amer) > 60, Est GFR (Non- Af Amer) > 60, Random Glucose 202 H, Calcium 8.3 L, Magnesium 1.5 L, Total Bilirubin 0.8, AST 21, ALT 19, Alkaline Phosphatase 74, Lactate Dehydrogenase 513, Total Creatine Kinase 33 L, Troponin I < 0.01, Total Protein 7.8, Albumin 4.0, Globulin 3.8, Albumin/Globulin Ratio 1.0 L 10/19/18 19:22: WBC 10.8, RBC 4.69, Hgb 14.0, Hct 42.4, MCV 90.4, MCH 29.9, MCHC 33.0, RDW 13.3, Plt Count 198, MPV 10.8, Gran % 84.1 H, Lymph % (Auto) 10.8 L, Bradley % (Auto) 4.8, Eos % (Auto) 0.1 L, Baso % (Auto) 0.2, Gran # 9.11 H, Lymph # (Auto) 1.2, Bradley # (Auto) 0.5, Eos # (Auto) 0.0, Baso # (Auto) 0.02 10/19/18 19:19: pO2 123 H, VBG pH 7.37, VBG pCO2 41.0, VBG HCO3 23.7, VBG Total CO2 25.0, VBG O2 Sat (Calc) 99.6 H, VBG Base Excess -1.5 L, VBG Potassium 4.6, Sodium 134.0, Chloride 100.0, Glucose 214 H, Lactate 2.6 H, FiO2 21.0, Venous Blood Potassium 4.6 10/19/18 19:08: Grp A Beta Strep Ag Negative - RAD Interpretation Radiology Orders: 10/19/18 19:03 CHEST PORTABLE [RAD] Stat 10/19/18 20:55 NECK SOFT TISSUE W/CONTRAST [CT] Stat - Medication Orders Current Medication Orders: Azithromycin (Zithromax 500mg In Ns) 500 mg in 250 mls @ 167 mls/hr IVPB STAT STA; Protocol Stop: 10/19/18 22:53 Last Admin: 10/19/18 21:39 Dose: 167 mls/hr eMAR Start Stop Document 10/19/18 21:39 CNR (Rec: 10/19/18 21:44 CNR [id number]) Intravenous Solution Start Date 10/19/18 Start Time 21:43 Disposition/Present on Arrival - Present on Arrival Any Indicators Present on Arrival: No History of DVT/PE: No History of Uncontrolled Diabetes: No Urinary Catheter: No History of Decub. Ulcer: No History Surgical Site Infection Following: None - Disposition Have Diagnosis and Disposition been Completed?: Yes Diagnosis: Sepsis, Hypoxia Disposition: HOSPITALIZED Disposition Time: 22:20 Patient Plan: Admission, Telemetry Patient Problems: Current Active Problems Problem Status Onset Upper respiratory infection Acute Condition: GUARDED Discharge Instructions (ExitCare): Sepsis (ED) Forms: [employer] (Chinese)
[2018-10-19 23:08] LABS: VENOUS BLOOD GAS BASE EXCESS 1.1 mmol/L (0.0-2.0); VENOUS BLOOD GAS PO2 33 mm/Hg (30-55); VENOUS BLOOD PH 7.32 (7.32-7.43)
[2018-10-19] MEDS ORDERED: Albuterol-Ipratrop 3 mg / 0.5 (3 ml) UD IH PRN ×2 (23:18→23:22)
[2018-10-19] MEDS ORDERED: Dextrose 50% SYRINGE Inj (50 ml) IV PRN (23:18)
[2018-10-19] MEDS ORDERED: Magnesium Oxide 400 mg Tab UD PO STA (23:33)
--- NOTE | 2018-10-20 00:03 | CP.PCM.HP ---
<Tom Castorena - Last Filed: 10/20/18 00:00> History of Present Illness - History of Present Illness History of Present Illness: Tom Castorena PGY1 H&P for Dr. Harman Pt is a 83yoF with PMH A.fib, HTN, DM, peripheral neuropathy who presents to ED with b/l leg weakness x2 days. Pt reports difficulty ambulating at home due to feeling weak in the legs, which has been progressive over the past few months but worsened yesterday. She reports normally ambulating with a cane. She denies any numbness/tingling, pain in the legs, falls, or loss of consciousness. Pt also states she doesnt "feel well" and has had decreased appetite, but denies weight loss. Pt visited PMD today where her temp was taken to be 102F. Pt also reports hoarseness in her voice and a dry, nonproductive cough for the pats couple of days. She denies any sick contacts, chills, shortness of breath, nausea, vomiting, abdominal pain, diarrhea, constipation, or dysuria. SxH: CABG SocH: former smoker, denies etoh or recreational drugs FamH: denies Allergies: NKDA Meds: as per EMR PMD: [place] Present on Admission - Present on Admission Any Indicators Present on Admission: No Review of Systems - Review of Systems Review of Systems: as per HPI Past Patient History - Infectious Disease Hx of Infectious Diseases: None - Past Social History Smoking Status: Never Smoked - CARDIAC Hx Hypertension: Yes - PULMONARY Hx Respiratory Disorders: No - NEUROLOGICAL Hx Paralysis: No - HEENT Hx HEENT Problems: No - RENAL Hx Chronic Kidney Disease: No - ENDOCRINE/METABOLIC Hx Diabetes Mellitus Type 2: Yes - HEMATOLOGICAL/ONCOLOGICAL Hx Blood Transfusions: No Hx Blood Transfusion Reaction: No - INTEGUMENTARY Hx Dermatological Problems: No - MUSCULOSKELETAL/RHEUMATOLOGICAL Hx Musculoskeletal Disorders: Yes - GASTROINTESTINAL Hx Gastrointestinal Disorders: No - GENITOURINARY/GYNECOLOGICAL Hx Genitourinary Disorders: No - PSYCHIATRIC Hx Emotional Abuse: No Hx Physical Abuse: No Hx Substance Use: No - SURGICAL HISTORY Hx Coronary Artery Bypass Graft: Yes - ANESTHESIA Hx Anesthesia Reactions: No Hx Malignant Hyperthermia: No Meds Allergies/Adverse Reactions: Allergies Allergy/AdvReac Type Severity Reaction Status Date / Time No Known Allergies Allergy Verified 06/05/12 09:10 Physical Exam - Constitutional Appears: Well, No Acute Distress - Head Exam Head Exam: ATRAUMATIC, NORMOCEPHALIC - Eye Exam Eye Exam: EOMI, Normal appearance, PERRL Pupil Exam: NORMAL ACCOMODATION - ENT Exam ENT Exam: Mucous Membranes Moist, Normal Exam, Normal Oropharynx - Neck Exam Neck exam: Positive for: Normal Inspection - Respiratory Exam Respiratory Exam: Clear to Auscultation Bilateral, NORMAL BREATHING PATTERN. absent: Decreased Breath Sounds, Rales, Rhonchi, Wheezes, Respiratory Distress - Cardiovascular Exam Cardiovascular Exam: Irregular Rhythm, +S1, +S2. absent: Gallop, Rubs, Systolic Murmur - GI/Abdominal Exam GI & Abdominal Exam: Normal Bowel Sounds, Soft. absent: Distended, Firm, Tenderness - Extremities Exam Extremities exam: Positive for: normal inspection. Negative for: calf tenderness, pedal edema - Back Exam Back exam: NORMAL INSPECTION - Neurological Exam Neurological exam: Alert, CN II-XII Intact, Oriented x3, Reflexes Normal - Expanded Neurological Exam Expanded Sensory exam: Lower Extremity 2 Point Discrimination: Normal, Lower Extremity Light Touch: Normal Neuro motor strength exam: Left Upper Extremity: 5, Right Upper Extremity: 5, Left Lower Extremity: 5, Right Lower Extremity: 5 - Psychiatric Exam Psychiatric exam: Normal Affect, Normal Mood - Skin Skin Exam: Dry Results - Vital Signs Recent Vital Signs: Last Vital Signs Temp 99.1 F 10/19/18 21:49 Pulse 104 H 10/19/18 23:31 Resp 17 10/19/18 23:31 BP 146/72 10/19/18 23:31 Pulse Ox 94 L 10/19/18 23:31 - Labs Result Diagrams: 10/19/18 19:22 10/19/18 19:22 Labs: Laboratory Results - last 24 hr 10/19/18 10/19/18 10/19/18 19:08 19:19 19:22 WBC 10.8 RBC 4.69 Hgb 14.0 Hct 42.4 MCV 90.4 MCH 29.9 MCHC 33.0 RDW 13.3 Plt Count 198 MPV 10.8 Gran % 84.1 H Lymph % (Auto) 10.8 L Henry % (Auto) 4.8 Eos % (Auto) 0.1 L Baso % (Auto) 0.2 Gran # 9.11 H Lymph # (Auto) 1.2 Henry # (Auto) 0.5 Eos # (Auto) 0.0 Baso # (Auto) 0.02 pO2 123 H VBG pH 7.37 VBG pCO2 41.0 VBG HCO3 23.7 VBG Total CO2 25.0 VBG O2 Sat (Calc) 99.6 H VBG Base Excess -1.5 L VBG Potassium 4.6 Sodium 134.0 Chloride 100.0 Glucose 214 H Lactate 2.6 H FiO2 21.0 Potassium Carbon Dioxide Anion Gap BUN Creatinine Est GFR ( Amer) Est GFR (Non-Af Amer) Random Glucose Calcium Magnesium Total Bilirubin AST ALT Alkaline Phosphatase Lactate Dehydrogenase Total Creatine Kinase Troponin I Total Protein Albumin Globulin Albumin/Globulin Ratio Venous Blood Potassium 4.6 Influenza Typ A,B (EIA) Grp A Beta Strep Ag Negative 10/19/18 10/19/18 10/19/18 19:22 21:08 23:04 WBC RBC Hgb Hct MCV MCH MCHC RDW Plt Count MPV Gran % Lymph % (Auto) Henry % (Auto) Eos % (Auto) Baso % (Auto) Gran # Lymph # (Auto) Henry # (Auto) Eos # (Auto) Baso # (Auto) pO2 33 VBG pH 7.32 VBG pCO2 55.0 VBG HCO3 28.3 H VBG Total CO2 30.0 H VBG O2 Sat (Calc) 67.0 H VBG Base Excess 1.1 VBG Potassium 4.7 Sodium 135 135.0 Chloride 102 99.0 Glucose 152 H Lactate 1.8 FiO2 21.0 Potassium 4.7 Carbon Dioxide 25 Anion Gap 14 BUN 14 Creatinine 0.8 Est GFR ( Amer) > 60 Est GFR (Non-Af Amer) > 60 Random Glucose 202 H Calcium 8.3 L Magnesium 1.5 L Total Bilirubin 0.8 AST 21 ALT 19 Alkaline Phosphatase 74 Lactate Dehydrogenase 513 Total Creatine Kinase 33 L Troponin I < 0.01 Total Protein 7.8 Albumin 4.0 Globulin 3.8 Albumin/Globulin Ratio 1.0 L Venous Blood Potassium 4.7 Influenza Typ A,B (EIA) Negative for flu a/b Grp A Beta Strep Ag Assessment & Plan - Assessment and Plan (Free Text) Assessment: 83yoF with PMH A.fib, HTN, DM, peripheral neuropathy who presents to ED with b/l leg weakness x2 days, admitted for URI r/o COPD/PNA. Plan: Upper Respiratory Infection - likely viral - r/o PNA vs. COPD vs. GERD - CXR: no infiltrates, effusions, congestion - CTA head/neck: no acute findings - pt afebrile, no leukocytosis - flu neg, strep neg - CURB65 score: 1, low likelihood of PNA - f/u UA, UCx, BCx, Throat Cx - zithromax 500mg IVPB daily - robitussin 10ml PO q4h PRN cough - duonebs INH q4h PRN A.fib - EKG: A.fib with RVR @114bpm - continue home eliquis 5mg PO BID CABG - continue home ASA 81 PO daily HTN - continue home lopressor 50mg PO BID - continue home losartan 25mg PO daily DM - med dose sliding scale - hypoglycemia protocol - accuchecks ACHS - f/u HbA1c Peripheral Neuropathy - pt with leg weakness - no focal deficits - continue home lyrica 50mg PO BID - fall precautions - PT/OT PPX: GI: pepcid 10mg PO daily DVT: SCDs HHD Case reviewed with Dr. Harman <Pernell Harman - Last Filed: 10/20/18 05:36> Results - Vital Signs Recent Vital Signs: Last Vital Signs Temp 100.3 F H 10/19/18 23:45 Pulse 101 H 10/20/18 02:00 Resp 20 10/20/18 00:15 BP 199/96 H 10/20/18 01:03 Pulse Ox 93 L 10/19/18 23:45 - Labs Result Diagrams: 10/19/18 19:22 10/19/18 19:22 Labs: Laboratory Results - last 24 hr 10/19/18 10/19/18 10/19/18 19:08 19:19 19:22 WBC 10.8 RBC 4.69 Hgb 14.0 Hct 42.4 MCV 90.4 MCH 29.9 MCHC 33.0 RDW 13.3 Plt Count 198 MPV 10.8 Gran % 84.1 H Lymph % (Auto) 10.8 L Henry % (Auto) 4.8 Eos % (Auto) 0.1 L Baso % (Auto) 0.2 Gran # 9.11 H Lymph # (Auto) 1.2 Henry # (Auto) 0.5 Eos # (Auto) 0.0 Baso # (Auto) 0.02 pO2 123 H VBG pH 7.37 VBG pCO2 41.0 VBG HCO3 23.7 VBG Total CO2 25.0 VBG O2 Sat (Calc) 99.6 H VBG Base Excess -1.5 L VBG Potassium 4.6 Sodium 134.0 Chloride 100.0 Glucose 214 H Lactate 2.6 H FiO2 21.0 Potassium Carbon Dioxide Anion Gap BUN Creatinine Est GFR ( Amer) Est GFR (Non-Af Amer) Random Glucose Calcium Magnesium Total Bilirubin AST ALT Alkaline Phosphatase Lactate Dehydrogenase Total Creatine Kinase Troponin I NT-Pro-B Natriuret Pep Total Protein Albumin Globulin Albumin/Globulin Ratio TSH 3rd Generation Venous Blood Potassium 4.6 Influenza Typ A,B (EIA) Grp A Beta Strep Ag Negative 10/19/18 10/19/18 10/19/18 19:22 19:22 19:22 WBC RBC Hgb Hct MCV MCH MCHC RDW Plt Count MPV Gran % Lymph % (Auto) Henry % (Auto) Eos % (Auto) Baso % (Auto) Gran # Lymph # (Auto) Henry # (Auto) Eos # (Auto) Baso # (Auto) pO2 VBG pH VBG pCO2 VBG HCO3 VBG Total CO2 VBG O2 Sat (Calc) VBG Base Excess VBG Potassium Sodium 135 Chloride 102 Glucose Lactate FiO2 Potassium 4.7 Carbon Dioxide 25 Anion Gap 14 BUN 14 Creatinine 0.8 Est GFR ( Amer) > 60 Est GFR (Non-Af Amer) > 60 Random Glucose 202 H Calcium 8.3 L Magnesium 1.5 L Total Bilirubin 0.8 AST 21 ALT 19 Alkaline Phosphatase 74 Lactate Dehydrogenase 513 Total Creatine Kinase 33 L Troponin I < 0.01 NT-Pro-B Natriuret Pep 3230 H Total Protein 7.8 Albumin 4.0 Globulin 3.8 Albumin/Globulin Ratio 1.0 L TSH 3rd Generation 2.09 Venous Blood Potassium Influenza Typ A,B (EIA) Grp A Beta Strep Ag 10/19/18 10/19/18 21:08 23:04 WBC RBC Hgb Hct MCV MCH MCHC RDW Plt Count MPV Gran % Lymph % (Auto) Henry % (Auto) Eos % (Auto) Baso % (Auto) Gran # Lymph # (Auto) Henry # (Auto) Eos # (Auto) Baso # (Auto) pO2 33 VBG pH 7.32 VBG pCO2 55.0 VBG HCO3 28.3 H VBG Total CO2 30.0 H VBG O2 Sat (Calc) 67.0 H VBG Base Excess 1.1 VBG Potassium 4.7 Sodium 135.0 Chloride 99.0 Glucose 152 H Lactate 1.8 FiO2 21.0 Potassium Carbon Dioxide Anion Gap BUN Creatinine Est GFR ( Amer) Est GFR (Non-Af Amer) Random Glucose Calcium Magnesium Total Bilirubin AST ALT Alkaline Phosphatase Lactate Dehydrogenase Total Creatine Kinase Troponin I NT-Pro-B Natriuret Pep Total Protein Albumin Globulin Albumin/Globulin Ratio TSH 3rd Generation Venous Blood Potassium 4.7 Influenza Typ A,B (EIA) Negative for flu a/b Grp A Beta Strep Ag Attending/Attestation - Attestation I have personally seen and examined this patient.: Yes I have fully participated in the care of the patient.: Yes I have reviewed all pertinent clinical information: Yes Notes (Text): 10/20/18 05:36 Patient was seen when she was in . Agree with history,physical examination,assessment and plan.
[2018-10-20] MEDS: guaiFENesin DM 200 mg-20 mg/10 ml UD PO PRN (00:21)
[2018-10-20] MEDS ORDERED: Magnesium Sulfate 2 gm/50 ml 2 GM/50 ML BAG IVPB ONE (00:47)
[2018-10-20] MEDS ORDERED: Metoprolol 1 mg/ml Inj IVP ONE (00:47)
[2018-10-20] MEDS ORDERED: Influenza Vaccine 60 mcg/0.5 mL SYR (4YR UP) IM ONE (04:04)
[2018-10-20] MEDS ORDERED: Pneumococcal 23-Valent Vaccine IM ONE (04:04)
[2018-10-20 06:49] LABS: ALB/GLOB RATIO 1.1 (1.1-1.8); ALBUMIN 3.9 g/dL (3.0-4.8); ALT/SGPT 19 U/L (7-56); AST/SGOT 24 U/L (14-36); BLOOD UREA NITROGEN 13 mg/dL (7-21); CALCIUM 8.3 mg/dL (8.4-10.5); GFR NON-AFRICAN AMERICAN > 60
[2018-10-20 07:02] LABS: BASO # 0.02 K/mm3 (0.0-2.0); BASO % 0.2 % (0.0-3.0); GRAN # 6.81 (1.4-6.5); GRAN % 71.3 % (50.0-68.0); HEMOGLOBIN 13.3 g/dL (12.0-16.0); LYMPH % 21.2 % (22.0-35.0); MEAN CELL VOLUME 90.1 fl (80.0-105.0); MEAN CORPUSCULAR HEMOGLOBIN 29.2 pg (25.0-35.0); MEAN CORPUSCULAR HGB CONC 32.4 g/dl (31.0-37.0); MEAN PLATELET VOLUME 11.2 fl (7.0-11.0); MONO # 0.7 (0.1-0.6); MONO % 7.3 % (1.0-6.0); RBC 4.56 10^6/uL (3.5-6.1); RED CELL DISTRIBUTION WIDTH 13.4 % (11.5-14.5); WHITE BLOOD COUNT 9.6 10^3/uL (4.5-11.0)
[2018-10-20] MEDS: Insulin Lispro (humaLOG) MEDIUM Coverage SC SCH ×3 (08:13→17:32)
--- NOTE | 2018-10-20 09:03 | CT ---
Date of service: 10/19/2018 PROCEDURE: CT NECK WITH CONTRAST HISTORY: sore throat, difficulty with swallowing COMPARISON: None available. TECHNIQUE: CT of the neck with intravenous contrast. Coronal and sagittal reformats generated. Intravenous contrast dose: Radiation dose: Total exam DLP = 430.88 mGy-cm. This CT exam was performed using one or more of the following dose reduction techniques: Automated exposure control, adjustment of the mA and/or kV according to patient size, and/or use of iterative reconstruction technique. FINDINGS: NASOPHARYNX: Unremarkable. SUPRAHYOID NECK: Unremarkable oropharynx, oral cavity, parapharyngeal space and retropharyngeal space. INFRAHYOID NECK: Unremarkable larynx, hypopharynx, and supraglottic space. Vocal cords intact. MASS: None. GLANDS: Parotid and submandibular glands unremarkable. Normal size thyroid gland, without nodule. LYMPH NODES: Normal. No lymphadenopathy. CERVICAL SPINE: No fracture or focal lesion. VASCULAR STRUCTURES: Unremarkable. OTHER FINDINGS: None. IMPRESSION: Unremarkable contrast enhanced CT of the neck.
--- NOTE | 2018-10-20 09:10 | RAD ---
Date of service: 10/19/2018 HISTORY: r/o pneumonia COMPARISON: 08/05/2017 FINDINGS: LUNGS: No active pulmonary disease. PLEURA: No significant pleural effusion identified, no pneumothorax apparent. CARDIOVASCULAR: No aortic atherosclerotic calcification present. Moderate cardiomegaly no pulmonary vascular congestion. OSSEOUS STRUCTURES: Sternal wires VISUALIZED UPPER ABDOMEN: Normal. OTHER FINDINGS: None. IMPRESSION: No active disease.
[2018-10-20] MEDS: Azithromycin 500MG/NS 250ml 500 MG/250 ML BAG IVPB SCH (09:35)
[2018-10-20 10:28] LABS: URINE BILIRUBIN NEGATIVE (NEGATIVE); URINE BLOOD TRACE-INTACT (NEGATIVE); URINE GLUCOSE (UA) NEGATIVE (NEGATIVE); URINE LEUKOCYTE ESTERASE NEGATIVE Leu/uL (NEGATIVE); URINE PROTEIN NEGATIVE mg/dL (<30 mg/dL); URINE UROBILINOGEN 0.2 E.U./dL (<1 E.U./dL)
[2018-10-20 10:31] LABS: URINE APPEARANCE CLEAR (CLEAR); URINE COLOR YELLOW (YELLOW)
[2018-10-20 10:36] LABS: URINE BACTERIA TRACE (NEG); URINE EPITHELIAL CELLS 0 - 2 /hpf (0-5); URINE RBC 0 - 2 /hpf (0-2); URINE WBC 0 - 2 /hpf (0-6)
--- NOTE | 2018-10-20 15:23 | CP.PCM.PN ---
<Tarun Del Cid - Last Filed: 10/20/18 15:18> Subjective - Date & Time of Evaluation Date of Evaluation: 10/20/18 Time of Evaluation: 15:18 - Subjective Subjective: PGY1 Medicine Progress Note for Dr. Doran Patient seen and evaluated at bedside this morning. Tolerating some of her diet, but says she doesn't have an appetite. Patient able to get out of bed to chair with assistance. Patient admits to lower extremity weakness, improving since yesterday. Patient otherwise denies nausea, abdominal pain, vomiting, fever, chi lls, lower extremity pain, and/or diarrhea. Objective - Vital Signs/Intake and Output Vital Signs (last 24 hours): Temp Pulse Resp BP Pulse Ox 98.4 F 79 19 116/74 99 10/20/18 12:00 10/20/18 14:00 10/20/18 12:00 10/20/18 12:00 10/20/18 06:00 Intake and Output: 10/20/18 10/20/18 06:59 18:59 Intake Total 50 Balance 50 - Medications Medications: Current Medications Acetaminophen (Tylenol 325mg Tab) 650 mg PO Q6H PRN PRN Reason: Fever >100.4 F Last Admin: 10/20/18 08:52 Dose: 650 mg Albuterol/Ipratropium (Duoneb 3 Mg/0.5 Mg (3 Ml) Ud) 3 ml IH Q4H PRN PRN Reason: Shortness of Breath Apixaban (Eliquis) 5 mg PO BID MAK; Protocol Last Admin: 10/20/18 09:36 Dose: 5 mg Aspirin (Ecotrin) 81 mg PO DAILY [facility]K Last Admin: 10/20/18 09:36 Dose: 81 mg Dextrose (Dextrose 50% Inj) 0 ml IV STAT PRN; Protocol PRN Reason: Hypoglycemia Protocol Donepezil HCl (Aricept) 10 mg PO HS [facility]K Last Admin: 10/20/18 00:21 Dose: 10 mg Famotidine (Pepcid) 10 mg PO DAILY [facility] Last Admin: 10/20/18 09:36 Dose: 10 mg Guaifenesin/Dextromethorphan (Robitussin Dm) 10 ml PO Q4H PRN PRN Reason: Cough Last Admin: 10/20/18 00:21 Dose: 10 ml Dextrose (Dextrose 5% In Water 1000 Ml) 1,000 mls @ 0 mls/hr IV .Q0M PRN; Protocol PRN Reason: Hypoglycemia Protocol Azithromycin (Zithromax 500mg In Ns) 500 mg in 250 mls @ 167 mls/hr IVPB DAILY [facility]; Protocol Last Admin: 10/20/18 09:35 Dose: 167 mls/hr Insulin Human Lispro (Humalog Med) 0 units SC ACHS [facility]; Protocol Last Admin: 10/20/18 12:13 Dose: 1 unit Losartan Potassium (Cozaar) 25 mg PO DAILY [facility] Last Admin: 10/20/18 09:37 Dose: 25 mg Memantine (Namenda) 5 mg PO BID [facility] Last Admin: 10/20/18 09:37 Dose: 5 mg Metoprolol Tartrate (Lopressor) 50 mg PO BID [facility] Last Admin: 10/20/18 09:43 Dose: 50 mg Pregabalin (Lyrica) 50 mg PO BID [facility] Last Admin: 10/20/18 09:37 Dose: 50 mg - Labs Labs: 10/20/18 06:00 10/20/18 06:00 - Additional Findings Additional findings: - Constitutional Appears: Well, No Acute Distress - Head Exam Head Exam: ATRAUMATIC, NORMOCEPHALIC - Eye Exam Eye Exam: EOMI, Normal appearance, PERRL Pupil Exam: NORMAL ACCOMODATION - ENT Exam ENT Exam: Mucous Membranes Moist, Normal Exam, Normal Oropharynx - Neck Exam Neck exam: Positive for: Normal Inspection - Respiratory Exam Respiratory Exam: Clear to Auscultation Bilateral, NORMAL BREATHING PATTERN. absent: Decreased Breath Sounds, Rales, Rhonchi, Wheezes, Respiratory Distress - Cardiovascular Exam Cardiovascular Exam: Irregular Rhythm, +S1, +S2. absent: Gallop, Rubs, Systolic Murmur - GI/Abdominal Exam GI & Abdominal Exam: Normal Bowel Sounds, Soft. absent: Distended, Firm, Tenderness - Extremities Exam Extremities exam: Positive for: normal inspection. Negative for: calf tenderness, pedal edema - Back Exam Back exam: NORMAL INSPECTION - Neurological Exam Neurological exam: Alert, CN II-XII Intact, Oriented x3, Reflexes Normal - Expanded Neurological Exam Expanded Sensory exam: Lower Extremity 2 Point Discrimination: Normal, Lower Extremity Light Touch: Normal Neuro motor strength exam: Left Upper Extremity: 5, Right Upper Extremity: 5, Left Lower Extremity: 5, Right Lower Extremity: 5 - Psychiatric Exam Psychiatric exam: Normal Affect, Normal Mood - Skin Skin Exam: Dry Assessment and Plan - Assessment and Plan (Free Text) Assessment: 83-year-old Female with PMH Atrial Fibrillation, HTN, T2DM, peripheral neuropathy who presents to ED with bilateral leg weakness x2 days, admitted for URI r/o COPD/PNA. Upper Respiratory Infection, likely viral - CURB65 score: 1, Unlikely Pneumonia - r/o PNA vs. COPD vs. GERD - CXR: no infiltrates, effusions, congestion - CTA head/neck: no acute findings - patient afebrile, no leukocytosis - Flu neg, strep neg - UA unremarkbale - FOllow-up on UCx, BCx, Throat Cx - Zithromax 500mg IVPB daily - Robitussin 10ml PO q4h PRN cough - Duonebs INH q4h PRN Atrial Fibrillation - EKG on admission: A.fib with RVR @114bpm - Continue home eliquis 5mg PO BID CABG - Continue home ASA 81 PO daily HTN - Continue home lopressor 50mg PO BID - Continue home losartan 25mg PO daily DM - Med dose sliding scale - Hypoglycemia protocol - Accuchecks ACHS - Follow-up HbA1c Peripheral Neuropathy - patient with leg weakness - No focal deficits on physical exam - Continue home lyrica 50mg PO BID - Fall precautions - PT/OT PPX: GI: pepcid 10mg PO daily DVT: SCDs HHD Patient seen and case discussed in detail with Dr. Andreea Del Cid PGY1 <Romaine Doran - Last Filed: 10/21/18 14:09> Objective - Vital Signs/Intake and Output Vital Signs (last 24 hours): Temp Pulse Resp BP Pulse Ox 97.8 F 76 18 104/59 L 91 L 10/21/18 11:59 10/21/18 11:59 10/21/18 11:59 10/21/18 11:59 10/21/18 09:05 Intake and Output: 10/21/18 10/21/18 06:59 18:59 Intake Total 360 Balance 360 - Medications Medications: Current Medications Acetaminophen (Tylenol 325mg Tab) 650 mg PO Q6H PRN PRN Reason: Fever >100.4 F Last Admin: 10/21/18 07:00 Dose: 650 mg Albuterol/Ipratropium (Duoneb 3 Mg/0.5 Mg (3 Ml) Ud) 3 ml IH Q4H PRN PRN Reason: Shortness of Breath Apixaban (Eliquis) 5 mg PO BID [facility]; Protocol Last Admin: 10/21/18 10:22 Dose: 5 mg Aspirin (Ecotrin) 81 mg PO DAILY [facility] Last Admin: 10/21/18 10:21 Dose: 81 mg Dextrose (Dextrose 50% Inj) 0 ml IV STAT PRN; Protocol PRN Reason: Hypoglycemia Protocol Donepezil HCl (Aricept) 10 mg PO HS [facility] Last Admin: 10/20/18 21:32 Dose: 10 mg Doxycycline Hyclate (Doryx) 100 mg PO Q12 [facility]; Protocol Stop: 10/30/18 11:05 Last Admin: 10/21/18 11:39 Dose: 100 mg Famotidine (Pepcid) 10 mg PO DAILY [facility] Last Admin: 10/21/18 10:21 Dose: 10 mg Guaifenesin/Dextromethorphan (Robitussin Dm) 10 ml PO Q4H PRN PRN Reason: Cough Last Admin: 10/21/18 10:22 Dose: 10 ml Dextrose (Dextrose 5% In Water 1000 Ml) 1,000 mls @ 0 mls/hr IV .Q0M PRN; Protocol PRN Reason: Hypoglycemia Protocol Ceftriaxone Sodium (Rocephin 1 Gram Ivpb) 1 gm in 100 mls @ 100 mls/hr IVPB DAILY [facility]; Protocol Stop: 10/31/18 11:05 Insulin Human Lispro (Humalog Med) 0 units SC ACHS [facility]; Protocol Last Admin: 10/21/18 11:39 Dose: 3 unit Losartan Potassium (Cozaar) 25 mg PO DAILY [facility] Last Admin: 10/21/18 10:20 Dose: 25 mg Memantine (Namenda) 5 mg PO BID [facility] Last Admin: 10/21/18 10:21 Dose: 5 mg Metoprolol Tartrate (Lopressor) 50 mg PO BID [facility] Last Admin: 10/21/18 10:21 Dose: 50 mg Oseltamivir Phosphate (Tamiflu) 30 mg PO BID [facility]; Protocol Last Admin: 10/21/18 10:44 Dose: 30 mg Pregabalin (Lyrica) 50 mg PO BID [facility] Last Admin: 10/21/18 10:20 Dose: 50 mg - Labs Labs: 10/21/18 06:30 10/21/18 06:30 Attending/Attestation - Attestation I have personally seen and examined this patient.: Yes I have fully participated in the care of the patient.: Yes I have reviewed all pertinent clinical information, including history, physical exam and plan: Yes Notes (Text): 10/21/18 14:06 Attending note; Patient seen and examined with resident. Patient is sitting in the chair. Alert and awake. Oriented to place and time. Currently denies any headache. Denies any fevers, chills. Had MAXIMUM TEMPERATURE of 102 yesterday. Denies any nausea, vomiting. Complaining of generalized weakness. Patient is a 83-year-old Female with PMH Atrial Fibrillation, HTN, T2DM, peripheral neuropathy who presents to ED with generalized weakness x2 days. Admitted for fever and generalized weakness. Most likely viral syndrome. Chest x-ray is negative. UA is normal. Influenza a and B is negative. Procalcitonin is ordered. Blood culture pending. History of A. fib and hypertension; heart rate controlled. Continue metoprolol. Continue eliquis. Diabetes; continue regular insulin sliding scale. Physical therapy evaluation requested. Upon discharge the patient will follow-up with PMD . 10/21/18 14:08
[2018-10-20] MEDS ORDERED: Metoprolol 1 mg/ml Inj IVP STA (18:26)
--- NOTE | 2018-10-20 19:51 | CARD ---
APPROVED REPORT Date of service: 10/19/2018 EKG Measurement Heart [id number] <Conclusion> Atrial fibrillation with rapid ventricular response ST abnormality, possible lateral ischemia Abnormal ECG
[2018-10-20] MEDS ORDERED: Azithromycin 500MG/NS 250ml 500 MG/250 ML BAG IVPB ONE (20:45)
[2018-10-21] MEDS: Insulin Lispro (humaLOG) MEDIUM Coverage SC SCH ×5 (04:33→22:08)
[2018-10-21 07:15] LABS: ALBUMIN 3.8 g/dL (3.0-4.8); ALT/SGPT 17 U/L (7-56); AST/SGOT 26 U/L (14-36); BLOOD UREA NITROGEN 19 mg/dL (7-21); CALCIUM 8.2 mg/dL (8.4-10.5); GFR NON-AFRICAN AMERICAN > 60
[2018-10-21 07:49] LABS: GRAN % 79.9 % (50.0-68.0); HEMOGLOBIN 13.8 g/dL (12.0-16.0); LYMPH % 11.6 % (22.0-35.0); MEAN CELL VOLUME 92.1 fl (80.0-105.0); MEAN CORPUSCULAR HEMOGLOBIN 29.6 pg (25.0-35.0); MEAN CORPUSCULAR HGB CONC 32.1 g/dl (31.0-37.0); MEAN PLATELET VOLUME 11.5 fl (7.0-11.0); RBC 4.67 10^6/uL (3.5-6.1); RED CELL DISTRIBUTION WIDTH 13.8 % (11.5-14.5)
[2018-10-21 07:50] LABS: BASO # 0.02 K/mm3 (0.0-2.0); BASO % 0.2 % (0.0-3.0); EOS % 0.1 % (1.5-5.0); GRAN # 8.83 (1.4-6.5); LYMPH # 1.3 (1.2-3.4); MONO # 0.9 (0.1-0.6); MONO % 8.2 % (1.0-6.0)
[2018-10-21] MEDS: Azithromycin 500MG/NS 250ml 500 MG/250 ML BAG IVPB SCH (10:20)
[2018-10-21] MEDS: guaiFENesin DM 200 mg-20 mg/10 ml UD PO PRN (10:22)
--- NOTE | 2018-10-21 13:03 | CP.PCM.PN ---
<Tarun Del Cid - Last Filed: 10/21/18 12:59> Subjective - Date & Time of Evaluation Date of Evaluation: 10/21/18 Time of Evaluation: 12:59 - Subjective Subjective: PGY1 Medicine Progress Note for Dr. Doran Patient seen and evaluated at bedside this morning. Patient had fever 103 overnight. Tolerating some of her diet, but says she doesn't have an appetite. Patient able to get out of bed to chair with assistance. Patient denies weakness in lower extremities.Patient admits to diaphoresis. Patient otherwise denies nausea, abdominal pain, vomiting, fever, chills, lower extremity pain, and/or diarrhea. Objective - Vital Signs/Intake and Output Vital Signs (last 24 hours): Temp Pulse Resp BP Pulse Ox 97.8 F 76 18 104/59 L 91 L 10/21/18 11:59 10/21/18 11:59 10/21/18 11:59 10/21/18 11:59 10/21/18 09:05 Intake and Output: 10/21/18 10/21/18 06:59 18:59 Intake Total 360 Balance 360 - Medications Medications: Current Medications Acetaminophen (Tylenol 325mg Tab) 650 mg PO Q6H PRN PRN Reason: Fever >100.4 F Last Admin: 10/21/18 07:00 Dose: 650 mg Albuterol/Ipratropium (Duoneb 3 Mg/0.5 Mg (3 Ml) Ud) 3 ml IH Q4H PRN PRN Reason: Shortness of Breath Apixaban (Eliquis) 5 mg PO BID [facility]; Protocol Last Admin: 10/21/18 10:22 Dose: 5 mg Aspirin (Ecotrin) 81 mg PO DAILY [facility] Last Admin: 10/21/18 10:21 Dose: 81 mg Dextrose (Dextrose 50% Inj) 0 ml IV STAT PRN; Protocol PRN Reason: Hypoglycemia Protocol Donepezil HCl (Aricept) 10 mg PO HS [facility] Last Admin: 10/20/18 21:32 Dose: 10 mg Doxycycline Hyclate (Doryx) 100 mg PO Q12 [facility]; Protocol Stop: 10/30/18 11:05 Last Admin: 10/21/18 11:39 Dose: 100 mg Famotidine (Pepcid) 10 mg PO DAILY [facility] Last Admin: 12/01/18 10:21 Dose: 10 mg Guaifenesin/Dextromethorphan (Robitussin Dm) 10 ml PO Q4H PRN PRN Reason: Cough Last Admin: 10/21/18 10:22 Dose: 10 ml Dextrose (Dextrose 5% In Water 1000 Ml) 1,000 mls @ 0 mls/hr IV .Q0M PRN; Protocol PRN Reason: Hypoglycemia Protocol Ceftriaxone Sodium (Rocephin 1 Gram Ivpb) 1 gm in 100 mls @ 100 mls/hr IVPB DAILY [facility]; Protocol Stop: 10/31/18 11:05 Insulin Human Lispro (Humalog Med) 0 units SC ACHS [facility]; Protocol Last Admin: 10/21/18 11:39 Dose: 3 unit Losartan Potassium (Cozaar) 25 mg PO DAILY [facility] Last Admin: 10/21/18 10:20 Dose: 25 mg Memantine (Namenda) 5 mg PO BID [facility] Last Admin: 10/21/18 10:21 Dose: 5 mg Metoprolol Tartrate (Lopressor) 50 mg PO BID [facility] Last Admin: 10/21/18 10:21 Dose: 50 mg Oseltamivir Phosphate (Tamiflu) 30 mg PO BID [facility]; Protocol Last Admin: 10/21/18 10:44 Dose: 30 mg Pregabalin (Lyrica) 50 mg PO BID [facility] Last Admin: 10/21/18 10:20 Dose: 50 mg - Labs Labs: 10/21/18 06:30 10/21/18 06:30 - Additional Findings Additional findings: - Constitutional Appears: Well, No Acute Distress - Head Exam Head Exam: ATRAUMATIC, NORMOCEPHALIC - Eye Exam Eye Exam: EOMI, Normal appearance, PERRL Pupil Exam: NORMAL ACCOMODATION - ENT Exam ENT Exam: Mucous Membranes Moist, Normal Exam, Normal Oropharynx - Neck Exam Neck exam: Positive for: Normal Inspection - Respiratory Exam Respiratory Exam: Clear to Auscultation Bilateral, NORMAL BREATHING PATTERN. absent: Decreased Breath Sounds, Rales, Rhonchi, Wheezes, Respiratory Distress - Cardiovascular Exam Cardiovascular Exam: Irregular Rhythm, +S1, +S2. absent: Gallop, Rubs, Systolic Murmur - GI/Abdominal Exam GI & Abdominal Exam: Normal Bowel Sounds, Soft. absent: Distended, Firm, Tenderness - Extremities Exam Extremities exam: Positive for: normal inspection. Negative for: calf tenderness, pedal edema - Back Exam Back exam: NORMAL INSPECTION - Neurological Exam Neurological exam: Alert, CN II-XII Intact, Oriented x3, Reflexes Normal - Expanded Neurological Exam Expanded Sensory exam: Lower Extremity 2 Point Discrimination: Normal, Lower Extremity Light Touch: Normal Neuro motor strength exam: Left Upper Extremity: 5, Right Upper Extremity: 5, Left Lower Extremity: 5, Right Lower Extremity: 5 - Psychiatric Exam Psychiatric exam: Normal Affect, Normal Mood - Skin Skin Exam: Dry Assessment and Plan - Assessment and Plan (Free Text) Assessment: 83-year-old Female with PMH Atrial Fibrillation, HTN, T2DM, peripheral neuropathy who presents to ED with bilateral leg weakness x2 days, admitted for URI r/o COPD/PNA. Upper Respiratory Infection, likely viral - CURB65 score: 1, Unlikely Pneumonia - Rule-out PNA vs. COPD vs. GERD - CXR: no infiltrates, effusions, congestion - CTA head/neck: no acute findings - patient afebrile, no leukocytosis - Flu neg, strep neg - UA unremarkbale - UCx: no growth - BCx: no growth x24 hours - Throat Cx: no growth - Influenza a/b: negative - Zithromax 500mg IVPB daily - Robitussin 10ml PO q4h PRN cough - Duonebs INH q4h PRN - ID consulted (Dr. Johnson); recommends: start tamiflu - Patient has decreased appetite; start ensure TID Atrial Fibrillation - EKG on admission: A.fib with RVR @114bpm - Continue home eliquis 5mg PO BID CABG - Continue home ASA 81 PO daily HTN - Continue home lopressor 50mg PO BID - Continue home losartan 25mg PO daily T2DM - Med dose sliding scale - Hypoglycemia protocol - Accuchecks ACHS - Follow-up HbA1c Peripheral Neuropathy - Lower extremity weakness improving - No focal deficits on physical exam - Continue home lyrica 50mg PO BID - Fall precautions - PT/OT PPX: GI: pepcid 10mg PO daily DVT: SCDs HHD Patient seen and case discussed in detail with Dr. Andreea Del Cid PGY1 <Romaine Doran - Last Filed: 10/21/18 14:11> Objective - Vital Signs/Intake and Output Vital Signs (last 24 hours): Temp Pulse Resp BP Pulse Ox 97.8 F 76 18 104/59 L 91 L 10/21/18 11:59 10/21/18 11:59 10/21/18 11:59 10/21/18 11:59 10/21/18 09:05 Intake and Output: 10/21/18 10/21/18 06:59 18:59 Intake Total 360 Balance 360 - Medications Medications: Current Medications Acetaminophen (Tylenol 325mg Tab) 650 mg PO Q6H PRN PRN Reason: Fever >100.4 F Last Admin: 10/21/18 07:00 Dose: 650 mg Albuterol/Ipratropium (Duoneb 3 Mg/0.5 Mg (3 Ml) Ud) 3 ml IH Q4H PRN PRN Reason: Shortness of Breath Apixaban (Eliquis) 5 mg PO BID [facility]; Protocol Last Admin: 10/21/18 10:22 Dose: 5 mg Aspirin (Ecotrin) 81 mg PO DAILY [facility] Last Admin: 10/21/18 10:21 Dose: 81 mg Dextrose (Dextrose 50% Inj) 0 ml IV STAT PRN; Protocol PRN Reason: Hypoglycemia Protocol Donepezil HCl (Aricept) 10 mg PO HS [facility] Last Admin: 10/20/18 21:32 Dose: 10 mg Doxycycline Hyclate (Doryx) 100 mg PO Q12 [facility]; Protocol Stop: 10/30/18 11:05 Last Admin: 10/21/18 11:39 Dose: 100 mg Famotidine (Pepcid) 10 mg PO DAILY [facility] Last Admin: 10/21/18 10:21 Dose: 10 mg Guaifenesin/Dextromethorphan (Robitussin Dm) 10 ml PO Q4H PRN PRN Reason: Cough Last Admin: 10/21/18 10:22 Dose: 10 ml Dextrose (Dextrose 5% In Water 1000 Ml) 1,000 mls @ 0 mls/hr IV .Q0M PRN; Protocol PRN Reason: Hypoglycemia Protocol Ceftriaxone Sodium (Rocephin 1 Gram Ivpb) 1 gm in 100 mls @ 100 mls/hr IVPB DAILY [facility]; Protocol Stop: 10/31/18 11:05 Insulin Human Lispro (Humalog Med) 0 units SC ACHS [facility]; Protocol Last Admin: 10/21/18 11:39 Dose: 3 unit Losartan Potassium (Cozaar) 25 mg PO DAILY [facility] Last Admin: 10/21/18 10:20 Dose: 25 mg Memantine (Namenda) 5 mg PO BID [facility] Last Admin: 10/21/18 10:21 Dose: 5 mg Metoprolol Tartrate (Lopressor) 50 mg PO BID [facility] Last Admin: 10/21/18 10:21 Dose: 50 mg Oseltamivir Phosphate (Tamiflu) 30 mg PO BID [facility]; Protocol Last Admin: 10/21/18 10:44 Dose: 30 mg Pregabalin (Lyrica) 50 mg PO BID [facility] Last Admin: 10/21/18 10:20 Dose: 50 mg - Labs Labs: 10/21/18 06:30 10/21/18 06:30 Attending/Attestation - Attestation I have personally seen and examined this patient.: Yes I have fully participated in the care of the patient.: Yes I have reviewed all pertinent clinical information, including history, physical exam and plan: Yes Notes (Text): 10/21/18 14:09 Attending note; Patient seen and examined with resident. Patient's son by the bedside. Had a MAXIMUM TEMPERATURE of 102 this morning. Alert and awake. Oriented to place and time. Currently denies any headache. Denies any nausea, vomiting. Poor by mouth intake. Complaining of generalized weakness. Able to move all extremities. Patient is a 83-year-old Female with PMH Atrial Fibrillation, HTN, T2DM, peripheral neuropathy who presents to ED with generalized weakness x2 days. Admitted for fever and generalized weakness. Most likely viral syndrome. On tamiflu. Chest x-ray is negative. UA is normal. Influenza a and B is negative. Procalcitonin is low. Blood culture is negative so far. ID evaluation appreciated. Started on Rocephin and doxycycline. Monitor closely. History of A. fib and hypertension; heart rate controlled. Continue metoprolol. Continue eliquis. Diabetes; continue regular insulin sliding scale. Physical therapy evaluation appreciated. TCU recommended. Transferred to TCU tomorrow if stable. Plan discussed with patient's son in detail. Upon discharge the patient will follow-up with PMD . 10/21/18 14:11
--- NOTE | 2018-10-21 17:09 | CARD ---
APPROVED REPORT Date of service: 10/21/2018 EXAM: Two-dimensional and M-mode echocardiogram with Doppler and color Doppler. INDICATION R/O CHF, EF 2D DIMENSIONS IVSd1.1 (0.7-1.1cm)LVDd4.6 (3.9-5.9cm) PWd1.1 (0.7-1.1cm)LVDs3.1 (2.5-4.0cm) FS (%) 33.0 %LVEF (%)61.7 (>50%) M-Mode DIMENSIONS Left Atrium (MM)5.60 (2.5-4.0cm)Aortic Root3.20 (2.2-3.7cm) Aortic Cusp Exc.2.00 (1.5-2.0cm) Aortic Valve AoV Peak Dbxblbnm824.0cm/Peter Peak GR.6mmHg Mitral Valve MV E Swkminxe286.0cm/sMV E Peak Gr.85mmHgE/A ratio0.0 TDI Lateral E' Peak V14.70cm/sMedial E' Peak V8.58cm/sE/Lateral E'8.6 E/Medial E'14.7 Tricuspid Valve TR Peak [id number]/sRAP [id number] Peak Gr.41mmHg [id number] LEFT VENTRICLE The left ventricle is normal size. There is normal left ventricular wall thickness. The left ventricular function is normal. The left ventricular ejection fraction is within the normal range. There is normal LV segmental wall motion. RIGHT VENTRICLE The right ventricle is borderline dilated. There is normal right ventricular wall thickness. The right ventricular systolic function is normal. ATRIA The left atrium is severely dilated. The right atrium is moderately dilated. AORTIC VALVE The aortic valve is mildly thickened. There is mild aortic regurgitation. There is no aortic valvular stenosis. MITRAL VALVE The mitral valve is moderately thickened. Mitral regurgitation is severe. TRICUSPID VALVE There is moderate tricuspid regurgitation. There is moderate pulmonary hypertension. PULMONIC VALVE The pulmonary valve is normal in structure. There is no pulmonic valvular regurgitation. GREAT VESSELS The aortic root is normal in size. PERICARDIAL EFFUSION There is no pericardial effusion. <Conclusion> There is normal left ventricular wall thickness. The left ventricular function is normal. The left ventricular ejection fraction is within the normal range. There is normal LV segmental wall motion. The left atrium is severely dilated. There is mild aortic regurgitation. Mitral regurgitation is severe. There is moderate tricuspid regurgitation. There is moderate pulmonary hypertension.
--- NOTE | 2018-10-21 18:19 | CON ---
DATE: 10/21/2018 The patient is seen in room 262, bed 1. CHIEF COMPLAINT: Weakness and cough and fever, shortness of breath times several days. HISTORY OF PRESENT ILLNESS: This is an 83-year-old female with past medical history significant for coronary artery disease, cardiac stent, coronary artery bypass graft, diabetes, hypertension, peripheral neuropathy, anxiety, depression and arthritis, who was admitted with shortness of breath, has been having fevers, chills, and no chest pain. She is coughing. Cough is productive, yellowish in sputum. REVIEW OF SYSTEMS: Reveals no abdominal pain, diarrhea or constipation. No dysuria or frequency. No new back. No new chest pain, headaches. REVIEW OF SYSTEMS: Fourteen-point review of systems is performed. PAST MEDICAL HISTORY: Significant for coronary artery disease, diabetes, hypertension, peripheral neuropathy, arthritis, anxiety, depression, and atrial fibrillation. PAST SURGICAL HISTORY: Significant coronary artery bypass graft. SOCIAL HISTORY: She is a long-time ex-smoker. ALLERGIES: SHE HAS NO KNOWN ALLERGIES TO ANY ANTIBIOTICS. MEDICATIONS: Medications at home include Aricept, Namenda, losartan, aspirin, Januvia, Lyrica, and metoprolol. PHYSICAL EXAMINATION: GENERAL: She appears washed out, weak, and overall in poor condition. VITAL SIGNS: Temperature of 102.5, respiratory rate of 18 to 20, heart rate of 124, blood pressure is 120/80, and 91% saturation with a BMI of 35. HEENT: Unremarkable. NECK: Supple. LUNGS: Lungs with bibasilar crackles. HEART: Normal S1, S2 and questionable S3. ABDOMEN: Soft, nontender. No rebound or guarding. LABORATORY EXAMINATION: Reveals a white count of 11,000, hemoglobin of 13, platelets of 162, and 79% granulocytosis. Blood gases are noted. Chemistries reveals the patient's procalcitonin is 0.09 and the BNP is elevated at 3000 and creatinine is 0.7, elevated sugar. Urinalysis is unremarkable. Influenza is negative. The patient's EKG shows a prolonged QTC of 485, and the patient had a CT of the neck rather, which was negative, and a chest x-ray was also negative. ASSESSMENT AND PLAN: This is an 83-year-old female with coronary artery disease, hypertension, diabetes, peripheral neuropathy, arthritis, anxiety, depression, obesity with a BMI of 35, history of coronary bypass graft and now with a fever, decreased breath sounds and tachycardia. #1 is sepsis with probable community-acquired pneumonia. We ordered a chest x-ray and Is reported to be negative, and the procalcitonin is negative. In the face of acute diastolic congestive heart failure on top of chronic congestive heart failure, we will treat the patient with ceftriaxone and doxycycline, discontinue the azithromycin. Order blood cultures, urine cultures and sputum cultures and MRSA screen, and we will order urine for Legionella antigen, repeat the procalcitonin, CAT scan of the chest, and we will start the patient on ceftriaxone and doxycycline pending CT of the chest. We will order an echo regarding the ejection fraction, and we will make further recommendations upon availability of initial results. Her case was discussed with FELIPE and Dr. Doran and staff. Duy Johnson MD
[2018-10-22 01:48] VITALS: PULSE 87
[2018-10-22 07:52] LABS: ALBUMIN 3.6 g/dL (3.0-4.8); ALT/SGPT 14 U/L (7-56); AST/SGOT 23 U/L (14-36); BLOOD UREA NITROGEN 25 mg/dL (7-21); CALCIUM 8.2 mg/dL (8.4-10.5); GFR NON-AFRICAN AMERICAN > 60
[2018-10-22 08:06] LABS: BASO # 0.01 K/mm3 (0.0-2.0); BASO % 0.1 % (0.0-3.0); GRAN # 10.15 (1.4-6.5); GRAN % 80.2 % (50.0-68.0); HEMOGLOBIN 12.8 g/dL (12.0-16.0); LYMPH # 1.3 (1.2-3.4); LYMPH % 10.6 % (22.0-35.0); MEAN CELL VOLUME 91.5 fl (80.0-105.0); MEAN CORPUSCULAR HEMOGLOBIN 29.3 pg (25.0-35.0); MEAN PLATELET VOLUME 11.1 fl (7.0-11.0); MONO # 1.2 (0.1-0.6); MONO % 9.1 % (1.0-6.0); RBC 4.37 10^6/uL (3.5-6.1); RED CELL DISTRIBUTION WIDTH 13.5 % (11.5-14.5); WHITE BLOOD COUNT 12.7 10^3/uL (4.5-11.0)
[2018-10-22] MEDS: Insulin Lispro (humaLOG) MEDIUM Coverage SC SCH ×3 (08:56→16:21)
[2018-10-22] MEDS ORDERED: cefTRIAXone 1 gm 1 GM/100 ML BAG IVPB SCH (11:04)
[2018-10-22 11:26] VITALS: O2SAT 93
[2018-10-22 12:42] VITALS: BP 123/56; RESP 18; TEMP 99
--- NOTE | 2018-10-22 13:27 | CP.PCM.DIS ---
<Tarun Del Cid - Last Filed: 10/22/18 13:47> Provider - Provider Date of Admission: 10/19/18 22:42 Attending physician: Romaine Doran MD Primary care physician: Meghna PCP Consults: 10/20/18 02:50 Social Work Referral Routine Comment: Pt lives alone. Uses a cane for ambulation. Physician Instructions: Reason For Exam: Please evaluate pt. 10/20/18 02:54 Nursing Referral for Palliative Care Routine Comment: Pt has a Living Will. Physician Instructions: Reason For Exam: Please evaluate pt. 10/20/18 04:04 Case Management Referral Routine Comment: Pt lives alone. Uses a cane for ambulation. Physician Instructions: Reason For Exam: Please evaluate pt. Reason for Referral: Discharge Planning 10/20/18 04:15 Patient Advocate Consultation ONCE Comment: Pt has a Living Will. Dtr asked to provide a copy. Physician Instructions: Reason For Exam: Please evaluate pt. 10/20/18 16:02 TCU [Evaluation for TRCU] Routine Comment: Physician Instructions: Reason For Exam: DECONDITIONING 10/21/18 10:21 Consult [Physician Consult] Routine Comment: Consulting Provider: Duy Johnson Consulting Physician: Duy Johnson Reason for Consult: fever Time Spent in preparation of Discharge (in minutes): 45 Diagnosis - Discharge Diagnosis (1) Upper respiratory infection Status: Acute Priority: Medium (2) Atrial fibrillation Status: Chronic Priority: Medium (3) Peripheral neuropathy Status: Chronic Priority: Medium Hospital Course - Lab Results Lab Results: Micro Results 10/19/18 22:40 Blood-Venous Blood Culture - Preliminary NO GROWTH AFTER 48 HOURS 10/19/18 22:25 Blood-Venous Blood Culture - Preliminary NO GROWTH AFTER 48 HOURS 10/20/18 10:20 Urine Urine Culture - Final No Growth (<1,000 CFU/ML) 10/19/18 19:08 Throat Group A Strep Throat Culture - Final NO BETA STREP GROUP A ISOLATED. Most Recent Lab Values WBC 12.7 10^3/uL (4.5-11.0) H 10/22/18 07:00 RBC 4.37 10^6/uL (3.5-6.1) 10/22/18 07:00 Hgb 12.8 g/dL (12.0-16.0) 10/22/18 07:00 Hct 40.0 % (36.0-48.0) 10/22/18 07:00 MCV 91.5 fl (80.0-105.0) 10/22/18 07:00 MCH 29.3 pg (25.0-35.0) 10/22/18 07:00 MCHC 32.0 g/dl (31.0-37.0) 10/22/18 07:00 RDW 13.5 % (11.5-14.5) 10/22/18 07:00 Plt Count 173 10^3/uL (120.0-450.0) 10/22/18 07:00 MPV 11.1 fl (7.0-11.0) H 10/22/18 07:00 Gran % 80.2 % (50.0-68.0) H 10/22/18 07:00 Lymph % (Auto) 10.6 % (22.0-35.0) L 10/22/18 07:00 [place] % (Auto) 9.1 % (1.0-6.0) H 10/22/18 07:00 Eos % (Auto) 0.0 % (1.5-5.0) L 10/22/18 07:00 Baso % (Auto) 0.1 % (0.0-3.0) 10/22/18 07:00 Gran # 10.15 (1.4-6.5) H 10/22/18 07:00 Lymph # (Auto) 1.3 (1.2-3.4) 10/22/18 07:00 [place] # (Auto) 1.2 (0.1-0.6) H 10/22/18 07:00 Eos # (Auto) 0.0 (0.0-0.7) 10/22/18 07:00 Baso # (Auto) 0.01 K/mm3 (0.0-2.0) 10/22/18 07:00 ESR 60 mm/hr (0.0-20.0) H 10/21/18 10:00 pO2 33 mm/Hg (30-55) 10/19/18 23:04 VBG pH 7.32 (7.32-7.43) 10/19/18 23:04 VBG pCO2 55.0 (40-60) 10/19/18 23:04 VBG HCO3 28.3 mmol/l (21-28) H 10/19/18 23:04 VBG Total CO2 30.0 mmol.L (22-28) H 10/19/18 23:04 VBG O2 Sat (Calc) 67.0 % (40-65) H 10/19/18 23:04 VBG Base Excess 1.1 mmol/L (0.0-2.0) 10/19/18 23:04 VBG Potassium 4.7 mmol/L (3.6-5.2) 10/19/18 23:04 Sodium 135.0 mmol/L (132-148) 10/19/18 23:04 Chloride 99.0 mmol/L (98-107) 10/19/18 23:04 Glucose 152 mg/dl (65-105) H 10/19/18 23:04 Lactate 1.8 mmol/L (0.7-2.1) 10/19/18 23:04 FiO2 21.0 % 10/19/18 23:04 Sodium 136 mmol/L (132-148) 10/22/18 07:00 Potassium 4.3 mmol/L (3.6-5.0) 10/22/18 07:00 Chloride 102 mmol/L (98-107) 10/22/18 07:00 Carbon Dioxide 26 mmol/L (21-33) 10/22/18 07:00 Anion Gap 12 (10-20) 10/22/18 07:00 BUN 25 mg/dL (7-21) H 10/22/18 07:00 Creatinine 0.8 mg/dl (0.7-1.2) 10/22/18 07:00 Est GFR ( Amer) > 60 10/22/18 07:00 Est GFR (Non-Af Amer) > 60 10/22/18 07:00 POC Glucose (mg/dL) 183 mg/dL (65-110) H 10/22/18 11:17 Random Glucose 162 mg/dL (70-110) H 10/22/18 07:00 Hemoglobin A1c 5.9 % (4.2-6.5) 10/20/18 06:00 Calcium 8.2 mg/dL (8.4-10.5) L 10/22/18 07:00 Magnesium 2.1 mg/dL (1.7-2.2) 10/21/18 06:30 Total Bilirubin 0.9 mg/dL (0.2-1.3) 10/22/18 07:00 AST 23 U/L (14-36) 10/22/18 07:00 ALT 14 U/L (7-56) 10/22/18 07:00 Alkaline Phosphatase 70 U/L (38-126) 10/22/18 07:00 Lactate Dehydrogenase 513 U/L (333-699) 10/19/18 19:22 Total Creatine Kinase 33 U/L (35-230) L 10/19/18 19:22 Troponin I < 0.01 ng/mL 10/19/18 19:22 NT-Pro-B Natriuret Pep 3230 pg/mL (0-450) H 10/19/18 19:22 Total Protein 7.3 g/dL (5.8-8.3) 10/22/18 07:00 Albumin 3.6 g/dL (3.0-4.8) 10/22/18 07:00 Globulin 3.7 gm/dL 10/22/18 07:00 Albumin/Globulin Ratio 1.0 (1.1-1.8) L 10/22/18 07:00 Procalcitonin 0.11 NG/ML (0.19-0.49) L 10/21/18 10:00 TSH 3rd Generation 2.09 mIU/mL (0.46-4.68) 10/19/18 19:22 Venous Blood Potassium 4.7 mmol/L (3.6-5.2) 10/19/18 23:04 Urine Color Yellow (YELLOW) 10/20/18 10:20 Urine Appearance Clear (CLEAR) 10/20/18 10:20 Urine pH 6.0 (4.7-8.0) 10/20/18 10:20 Ur Specific [place] 1.020 (1.005-1.035) 10/20/18 10:20 Urine Protein Negative mg/dL (<30 mg/dL) 10/20/18 10:20 Urine Glucose (UA) Negative mg/dL (NEGATIVE) 10/20/18 10:20 Urine Ketones Negative mg/dL (NEGATIVE) 10/20/18 10:20 Urine Blood Trace-intact (NEGATIVE) H 10/20/18 10:20 Urine Nitrate Negative (NEGATIVE) 10/20/18 10:20 Urine Bilirubin Negative (NEGATIVE) 10/20/18 10:20 Urine Urobilinogen 0.2 E.U./dL (<1 E.U./dL) 10/20/18 10:20 Ur Leukocyte Esterase Negative Maxim/uL (NEGATIVE) 10/20/18 10:20 Urine RBC 0 - 2 /hpf (0-2) 10/20/18 10:20 Urine WBC 0 - 2 /hpf (0-6) 10/20/18 10:20 Ur Epithelial Cells 0 - 2 /hpf (0-5) 10/20/18 10:20 Urine Bacteria Trace (NEG) 10/20/18 10:20 Influenza Typ A,B (EIA) Negative for flu a/b (NEGATIVE) 10/19/18 21:08 Grp A Beta Strep Ag Negative (NEGATIVE) 10/19/18 19:08 - Hospital Course Hospital Course: PGY1 Discharge Summary and Hospital Course for Dr. Doran Patient is a 83-year-old Female with PMH yoF with PMH Atrial Fibrillation (on eliquis), HTN, T2DM, peripheral neuropathy who presented to [facility] ED with bilateral leg weakness for 2 days. Patient reported difficulty ambulating at home due to feeling weak in the legs, which has been progressive over the past few months. Patient reported normally ambulating with a cane. Of note, Patient also stated she was not "feel well" and has had decreased appetite, but denies weight loss. Patient visited her PMD prior to arrival to the ED, where her temp was taken to be 102F. Patient also reported hoarseness in her voice and a dry, nonproductive cough for a few days. Please see chart for details. Patient was subsequently admitted to rule-out pneumonia. The following day, the Patient's lower extremity weakness improved. Patient was restarted on home meds for neuropathy. Patient's CURB65 score=1 on admission. Thus, pneumonia is unlikely. Throat culture revealed no growth. Urine culture revealed no growth. Influenza A/B was negative. Patient was treated with prophylactic Zithromax 500mg IVPB daily, paz pitts and ID was consulted. CT chest was obtained. Patient also has atrial-fibrillation, HTN, and DM. Patient was started on home meds and was treated for diabetes with insulin sliding scale. Physical Therapy evaluated and treated the Patient and recommended TCU for rehabilitation. On day of discharge, Patient was hemodynamically stable and was medically optimized for discharge. Patient subsequently discharged to TCU for rehabilitation. Please see chart for details. Patient seen and case discussed in detail with Dr. Andreea Del Cid PGY1 Discharge Exam - Additional Findings Additional findings: - Constitutional Appears: Well, No Acute Distress - Head Exam Head Exam: ATRAUMATIC, NORMOCEPHALIC - Eye Exam Eye Exam: EOMI, Normal appearance, PERRL Pupil Exam: NORMAL ACCOMODATION - ENT Exam ENT Exam: Mucous Membranes Moist, Normal Exam, Normal Oropharynx - Neck Exam Neck exam: Positive for: Normal Inspection - Respiratory Exam Respiratory Exam: Clear to Auscultation Bilateral, NORMAL BREATHING PATTERN. absent: Decreased Breath Sounds, Rales, Rhonchi, Wheezes, Respiratory Distress - Cardiovascular Exam Cardiovascular Exam: Irregular Rhythm, +S1, +S2. absent: Gallop, Rubs, Systolic Murmur - GI/Abdominal Exam GI & Abdominal Exam: Normal Bowel Sounds, Soft. absent: Distended, Firm, Tenderness - Extremities Exam Extremities exam: Positive for: normal inspection. Negative for: calf tenderness, pedal edema - Back Exam Back exam: NORMAL INSPECTION - Neurological Exam Neurological exam: Alert, CN II-XII Intact, Oriented x3, Reflexes Normal - Expanded Neurological Exam Expanded Sensory exam: Lower Extremity 2 Point Discrimination: Normal, Lower Extremity Light Touch: Normal Neuro motor strength exam: Left Upper Extremity: 5, Right Upper Extremity: 5, Left Lower Extremity: 5, Right Lower Extremity: 5 - Psychiatric Exam Psychiatric exam: Normal Affect, Normal Mood - Skin Skin Exam: Dry Discharge Plan - Discharge Medications Prescriptions: Doxycycline Hyclate 100 mg PO Q12 3 Days capsule - Follow Up Plan Condition: STABLE Disposition: REHAB FACILITY/REHAB UNIT Instructions: Viral Upper Respiratory Infection, Adult (DC), Sepsis, Adult (DC), Bacterial Upper Respiratory Infection, Adult (DC), Atrial Fibrillation (DC) Additional Instructions: Please follow-up with PMD 3-5 days after leaving the hospital. Please take medications as prescribed. Continue home medications. If your symptoms return, please come back to the ED immediately. Referrals: Duy Johnson MD [Staff Provider] - <Romaine Doran - Last Filed: 10/22/18 16:02> Provider - Provider Date of Admission: 10/19/18 22:42 Attending physician: Romaine Doran MD Consults: 10/20/18 02:50 Social Work Referral Routine Comment: Pt lives alone. Uses a cane for ambulation. Physician Instructions: Reason For Exam: Please evaluate pt. 10/20/18 02:54 Nursing Referral for Palliative Care Routine Comment: Pt has a Living Will. Physician Instructions: Reason For Exam: Please evaluate pt. 10/20/18 04:04 Case Management Referral Routine Comment: Pt lives alone. Uses a cane for ambulation. Physician Instructions: Reason For Exam: Please evaluate pt. Reason for Referral: Discharge Planning 10/20/18 04:15 Patient Advocate Consultation ONCE Comment: Pt has a Living Will. Dtr asked to provide a copy. Physician Instructions: Reason For Exam: Please evaluate pt. 10/20/18 16:02 TCU [Evaluation for TRCU] Routine Comment: Physician Instructions: Reason For Exam: DECONDITIONING 10/21/18 10:21 Consult [Physician Consult] Routine Comment: Consulting Provider: Duy Johnson Consulting Physician: Duy Johnson Reason for Consult: fever Hospital Course - Lab Results Lab Results: Micro Results 10/19/18 22:40 Blood-Venous Blood Culture - Preliminary NO GROWTH AFTER 48 HOURS 10/19/18 22:25 Blood-Venous Blood Culture - Preliminary NO GROWTH AFTER 48 HOURS 10/20/18 10:20 Urine Urine Culture - Final No Growth (<1,000 CFU/ML) 10/19/18 19:08 Throat Group A Strep Throat Culture - Final NO BETA STREP GROUP A ISOLATED. Most Recent Lab Values WBC 12.7 10^3/uL (4.5-11.0) H 10/22/18 07:00 RBC 4.37 10^6/uL (3.5-6.1) 10/22/18 07:00 Hgb 12.8 g/dL (12.0-16.0) 10/22/18 07:00 Hct 40.0 % (36.0-48.0) 10/22/18 07:00 MCV 91.5 fl (80.0-105.0) 10/22/18 07:00 MCH 29.3 pg (25.0-35.0) 10/22/18 07:00 MCHC 32.0 g/dl (31.0-37.0) 10/22/18 07:00 RDW 13.5 % (11.5-14.5) 10/22/18 07:00 Plt Count 173 10^3/uL (120.0-450.0) 10/22/18 07:00 MPV 11.1 fl (7.0-11.0) H 10/22/18 07:00 Gran % 80.2 % (50.0-68.0) H 10/22/18 07:00 Lymph % (Auto) 10.6 % (22.0-35.0) L 10/22/18 07:00 [place] % (Auto) 9.1 % (1.0-6.0) H 10/22/18 07:00 Eos % (Auto) 0.0 % (1.5-5.0) L 10/22/18 07:00 Baso % (Auto) 0.1 % (0.0-3.0) 10/22/18 07:00 Gran # 10.15 (1.4-6.5) H 10/22/18 07:00 Lymph # (Auto) 1.3 (1.2-3.4) 10/22/18 07:00 [place] # (Auto) 1.2 (0.1-0.6) H 10/22/18 07:00 Eos # (Auto) 0.0 (0.0-0.7) 10/22/18 07:00 Baso # (Auto) 0.01 K/mm3 (0.0-2.0) 10/22/18 07:00 ESR 60 mm/hr (0.0-20.0) H 10/21/18 10:00 pO2 33 mm/Hg (30-55) 10/19/18 23:04 VBG pH 7.32 (7.32-7.43) 10/19/18 23:04 VBG pCO2 55.0 (40-60) 10/19/18 23:04 VBG HCO3 28.3 mmol/l (21-28) H 10/19/18 23:04 VBG Total CO2 30.0 mmol.L (22-28) H 10/19/18 23:04 VBG O2 Sat (Calc) 67.0 % (40-65) H 10/19/18 23:04 VBG Base Excess 1.1 mmol/L (0.0-2.0) 10/19/18 23:04 VBG Potassium 4.7 mmol/L (3.6-5.2) 10/19/18 23:04 Sodium 135.0 mmol/L (132-148) 10/19/18 23:04 Chloride 99.0 mmol/L (98-107) 10/19/18 23:04 Glucose 152 mg/dl (65-105) H 10/19/18 23:04 Lactate 1.8 mmol/L (0.7-2.1) 10/19/18 23:04 FiO2 21.0 % 10/19/18 23:04 Sodium 136 mmol/L (132-148) 10/22/18 07:00 Potassium 4.3 mmol/L (3.6-5.0) 10/22/18 07:00 Chloride 102 mmol/L (98-107) 10/22/18 07:00 Carbon Dioxide 26 mmol/L (21-33) 10/22/18 07:00 Anion Gap 12 (10-20) 10/22/18 07:00 BUN 25 mg/dL (7-21) H 10/22/18 07:00 Creatinine 0.8 mg/dl (0.7-1.2) 10/22/18 07:00 Est GFR ( Amer) > 60 10/22/18 07:00 Est GFR (Non-Af Amer) > 60 10/22/18 07:00 POC Glucose (mg/dL) 183 mg/dL (65-110) H 10/22/18 11:17 Random Glucose 162 mg/dL (70-110) H 10/22/18 07:00 Hemoglobin A1c 5.9 % (4.2-6.5) 10/20/18 06:00 Calcium 8.2 mg/dL (8.4-10.5) L 10/22/18 07:00 Magnesium 2.1 mg/dL (1.7-2.2) 10/21/18 06:30 Total Bilirubin 0.9 mg/dL (0.2-1.3) 10/22/18 07:00 AST 23 U/L (14-36) 10/22/18 07:00 ALT 14 U/L (7-56) 10/22/18 07:00 Alkaline Phosphatase 70 U/L (38-126) 10/22/18 07:00 Lactate Dehydrogenase 513 U/L (333-699) 10/19/18 19:22 Total Creatine Kinase 33 U/L (35-230) L 10/19/18 19:22 Troponin I < 0.01 ng/mL 10/19/18 19:22 NT-Pro-B Natriuret Pep 3230 pg/mL (0-450) H 10/19/18 19:22 Total Protein 7.3 g/dL (5.8-8.3) 10/22/18 07:00 Albumin 3.6 g/dL (3.0-4.8) 10/22/18 07:00 Globulin 3.7 gm/dL 10/22/18 07:00 Albumin/Globulin Ratio 1.0 (1.1-1.8) L 10/22/18 07:00 Procalcitonin 0.11 NG/ML (0.19-0.49) L 10/21/18 10:00 TSH 3rd Generation 2.09 mIU/mL (0.46-4.68) 10/19/18 19:22 Venous Blood Potassium 4.7 mmol/L (3.6-5.2) 10/19/18 23:04 Urine Color Yellow (YELLOW) 10/20/18 10:20 Urine Appearance Clear (CLEAR) 10/20/18 10:20 Urine pH 6.0 (4.7-8.0) 10/20/18 10:20 Ur Specific [place] 1.020 (1.005-1.035) 10/20/18 10:20 Urine Protein Negative mg/dL (<30 mg/dL) 10/20/18 10:20 Urine Glucose (UA) Negative mg/dL (NEGATIVE) 10/20/18 10:20 Urine Ketones Negative mg/dL (NEGATIVE) 10/20/18 10:20 Urine Blood Trace-intact (NEGATIVE) H 10/20/18 10:20 Urine Nitrate Negative (NEGATIVE) 10/20/18 10:20 Urine Bilirubin Negative (NEGATIVE) 10/20/18 10:20 Urine Urobilinogen 0.2 E.U./dL (<1 E.U./dL) 10/20/18 10:20 Ur Leukocyte Esterase Negative Maxim/uL (NEGATIVE) 10/20/18 10:20 Urine RBC 0 - 2 /hpf (0-2) 10/20/18 10:20 Urine WBC 0 - 2 /hpf (0-6) 10/20/18 10:20 Ur Epithelial Cells 0 - 2 /hpf (0-5) 10/20/18 10:20 Urine Bacteria Trace (NEG) 10/20/18 10:20 Influenza Typ A,B (EIA) Negative for flu a/b (NEGATIVE) 10/19/18 21:08 Grp A Beta Strep Ag Negative (NEGATIVE) 10/19/18 19:08 Attending/Attestation - Attestation I have personally seen and examined this patient.: Yes I have fully participated in the care of the patient.: Yes I have reviewed all pertinent clinical information, including history, physical exam and plan: Yes Notes (Text): 10/22/18 15:58 Attending note; Patient seen and examined with resident. Patient is afebrile and nontoxic. Alert and awake. Oriented to place and time. Currently denies any headache. Denies any nausea, vomiting. Poor by mouth intake. Patient is a 83-year-old Female with PMH Atrial Fibrillation, HTN, T2DM, peripheral neuropathy who presents to ED with generalized weakness x2 days. Admitted for fever and generalized weakness. Most likely viral syndrome. On tamiflu. Chest x-ray is negative. UA is normal. Influenza a and B is negative. Procalcitonin is low. Blood culture is negative so far. ID evaluation appreciated. Started on Rocephin and doxycycline. CT chest ordered. Echocardiogram showed EF of 61% and moderate to severe MR and moderate TR and moderate pulmonary hypertension. History of A. fib and hypertension; heart rate controlled. Continue metoprolol. Continue eliquis. Diabetes; continue regular insulin sliding scale. Physical therapy evaluation appreciated. TCU recommended. Transfer to TCU today. Patient's family aware. Upon discharge the patient will follow-up with PMD . 10/22/18 16:01
--- NOTE | 2018-10-22 13:28 | CP.PCM.HP ---
History of Present Illness - History of Present Illness History of Present Illness: PGY1 Discharge Summary and Hospital Course for Dr. Doran Patient is a 83-year-old Female with PMH yoF with PMH Atrial Fibrillation (on eliquis), HTN, T2DM, peripheral neuropathy who presented to [facility] ED with bilateral leg weakness for 2 days. Patient reported difficulty ambulating at home due to feeling weak in the legs, which has been progressive over the past few months. Patient reported normally ambulating with a cane. Of note, Patient also stated she was not "feel well" and has had decreased appetite, but denies weight loss. Patient visited her PMD prior to arrival to the ED, where her temp was taken to be 102F. Patient also reported hoarseness in her voice and a dry, nonproductive cough for a few days. Please see chart for details. Patient was subsequently admitted to rule-out pneumonia. The following day, the Patient's lower extremity weakness improved. Patient was restarted on home meds for neuropathy. Patient's CURB65 score=1 on admission. Thus, pneumonia is unlikely. Throat culture revealed no growth. Urine culture revealed no growth. Influenza A/B was negative. Patient was treated with prophylactic Zithromax 500mg IVPB daily, paz pitts and ID was consulted. CT chest was obtained. Patient also has atrial-fibrillation, HTN, and DM. Patient was started on home meds and was treated for diabetes with insulin sliding scale. Physical Therapy evaluated and treated the Patient and recommended TCU for rehabilitation. On day of discharge, Patient was hemodynamically stable and was medically optimized for discharge. Please see chart for complete summary and details. Patient now in TCU for rehabilitation. Present on Admission - Present on Admission Any Indicators Present on Admission: No History of DVT/PE: No Urinary Catheter: No Decubitus Ulcer Present: No Review of Systems - Review of Systems All systems: reviewed and no additional remarkable complaints except Review of Systems: As stated in HPI. Otherwise negative. Past Patient History - Infectious Disease Hx of Infectious Diseases: None - Past Social History Smoking Status: Never Smoked - CARDIAC Hx Cardiac Disorders: Yes (Hx of CABG) Hx Hypercholesterolemia: Yes Hx Hypertension: Yes - PULMONARY Hx Respiratory Disorders: Yes Hx Respiratory Tract Infection: Yes (Current 10/19/18.) - NEUROLOGICAL Hx Neurological Disorder: Yes (Peripheral Neuropathy) Hx Dizziness: Yes (Vertigo) - HEENT Hx HEENT Problems: No (Denied by pt.) - RENAL Hx Chronic Kidney Disease: No (Denied by pt.) - ENDOCRINE/METABOLIC Hx Diabetes Mellitus Type 2: Yes - HEMATOLOGICAL/ONCOLOGICAL Hx Blood Disorders: No (Denied by pt.) - INTEGUMENTARY Hx Dermatological Problems: No (Denied by pt.) - MUSCULOSKELETAL/RHEUMATOLOGICAL Hx Arthritis: Yes (Knees and hands.) - GASTROINTESTINAL Hx Gastrointestinal Disorders: Yes Hx Diverticulitis: Yes (Hx of diverticulosis) Hx Gastroesophageal Reflux: Yes - GENITOURINARY/GYNECOLOGICAL Hx Genitourinary Disorders: Yes Hx Incontinence: Yes Hx Urinary Tract Infection: Yes - PSYCHIATRIC Hx Psychophysiologic Disorder: Yes Hx Anxiety: Yes Hx Depression: Yes Hx Substance Use: No (Denied by pt.) - SURGICAL HISTORY Hx Surgeries: Yes Hx Cardiac Catheterization: Yes (Stent x 1) Hx Coronary Stent: Yes Hx Open Heart Surgery: Yes - ANESTHESIA Hx Anesthesia Reactions: No Hx Malignant Hyperthermia: No Meds Home Medications: Home Medication List Medication Instructions Recorded Confirmed Type RX: Acetaminophen [Tylenol 325mg 650 mg PO Q6H PRN tab 10/22/18 Rx tab] RX: Albuterol/Ipratropium [Duoneb 3 ml IH Q4H PRN neb 10/22/18 Rx 3 mg/0.5 mg (3 ml) UD] RX: Dextrose 50% [Dextrose 50% Inj] 0 ml IV STAT PRN syr 10/22/18 Rx RX: Doxycycline Hyclate 100 mg PO Q12 3 Days capsule 10/22/18 Rx RX: guaiFENesin/Dextromethorphan 10 ml PO Q4H PRN udc 10/22/18 Rx [Robitussin DM] Allergies/Adverse Reactions: Allergies Allergy/AdvReac Type Severity Reaction Status Date / Time No Known Allergies Allergy Verified 10/22/18 17:15 Physical Exam - Additional Findings Additional findings: - Additional Findings Additional findings: - Constitutional Appears: Well, No Acute Distress - Head Exam Head Exam: ATRAUMATIC, NORMOCEPHALIC - Eye Exam Eye Exam: EOMI, Normal appearance, PERRL Pupil Exam: NORMAL ACCOMODATION - ENT Exam ENT Exam: Mucous Membranes Moist, Normal Exam, Normal Oropharynx - Neck Exam Neck exam: Positive for: Normal Inspection - Respiratory Exam Respiratory Exam: Clear to Auscultation Bilateral, NORMAL BREATHING PATTERN. absent: Decreased Breath Sounds, Rales, Rhonchi, Wheezes, Respiratory Distress - Cardiovascular Exam Cardiovascular Exam: Irregular Rhythm, +S1, +S2. absent: Gallop, Rubs, Systolic Murmur - GI/Abdominal Exam GI & Abdominal Exam: Normal Bowel Sounds, Soft. absent: Distended, Firm, Tenderness - Extremities Exam Extremities exam: Positive for: normal inspection. Negative for: calf tenderness, pedal edema - Back Exam Back exam: NORMAL INSPECTION - Neurological Exam Neurological exam: Alert, CN II-XII Intact, Oriented x3, Reflexes Normal - Expanded Neurological Exam Expanded Sensory exam: Lower Extremity 2 Point Discrimination: Normal, Lower Extremity Light Touch: Normal Neuro motor strength exam: Left Upper Extremity: 5, Right Upper Extremity: 5, Left Lower Extremity: 5, Right Lower Extremity: 5 - Psychiatric Exam Psychiatric exam: Normal Affect, Normal Mood - Skin Skin Exam: Dry Results - Vital Signs Recent Vital Signs: Last Vital Signs Temp 99.0 F 10/22/18 12:00 Pulse 87 10/22/18 00:01 Resp 18 10/22/18 12:00 BP 123/56 L 10/22/18 12:00 Pulse Ox 93 L 10/22/18 11:16 - Labs Result Diagrams: 10/22/18 07:00 10/22/18 07:00 Labs: Laboratory Results - last 24 hr 10/21/18 10/21/18 10/21/18 10:00 11:06 15:58 WBC RBC Hgb Hct MCV MCH MCHC RDW Plt Count MPV Gran % Lymph % (Auto) Brewster % (Auto) Eos % (Auto) Baso % (Auto) Gran # Lymph # (Auto) Brewster # (Auto) Eos # (Auto) Baso # (Auto) Sodium Potassium Chloride Carbon Dioxide Anion Gap BUN Creatinine Est GFR ( Amer) Est GFR (Non-Af Amer) POC Glucose (mg/dL) 209 H 119 H Random Glucose Calcium Total Bilirubin AST ALT Alkaline Phosphatase Total Protein Albumin Globulin Albumin/Globulin Ratio Procalcitonin 0.11 L 10/21/18 10/22/18 10/22/18 21:13 07:00 07:00 WBC 12.7 H RBC 4.37 Hgb 12.8 Hct 40.0 MCV 91.5 MCH 29.3 MCHC 32.0 RDW 13.5 Plt Count 173 MPV 11.1 H Gran % 80.2 H Lymph % (Auto) 10.6 L Brewster % (Auto) 9.1 H Eos % (Auto) 0.0 L Baso % (Auto) 0.1 Gran # 10.15 H Lymph # (Auto) 1.3 Brewster # (Auto) 1.2 H Eos # (Auto) 0.0 Baso # (Auto) 0.01 Sodium 136 Potassium 4.3 Chloride 102 Carbon Dioxide 26 Anion Gap 12 BUN 25 H Creatinine 0.8 Est GFR ( Amer) > 60 Est GFR (Non-Af Amer) > 60 POC Glucose (mg/dL) 137 H Random Glucose 162 H Calcium 8.2 L Total Bilirubin 0.9 AST 23 ALT 14 Alkaline Phosphatase 70 Total Protein 7.3 Albumin 3.6 Globulin 3.7 Albumin/Globulin Ratio 1.0 L Procalcitonin 10/22/18 10/22/18 07:15 11:17 WBC RBC Hgb Hct MCV MCH MCHC RDW Plt Count MPV Gran % Lymph % (Auto) Brewster % (Auto) Eos % (Auto) Baso % (Auto) Gran # Lymph # (Auto) Brewster # (Auto) Eos # (Auto) Baso # (Auto) Sodium Potassium Chloride Carbon Dioxide Anion Gap BUN Creatinine Est GFR ( Amer) Est GFR (Non-Af Amer) POC Glucose (mg/dL) 154 H 183 H Random Glucose Calcium Total Bilirubin AST ALT Alkaline Phosphatase Total Protein Albumin Globulin Albumin/Globulin Ratio Procalcitonin Assessment & Plan - Assessment and Plan (Free Text) Assessment: 83-year-old Female with PMH Atrial Fibrillation, HTN, T2DM, peripheral neuropathy who presents to ED with bilateral leg weakness x2 days, admitted for URI r/o COPD/PNA. Upper Respiratory Infection, likely viral - CURB65 score: 1, Unlikely Pneumonia - Rule-out PNA vs. COPD vs. GERD - CXR: no infiltrates, effusions, congestion - CTA head/neck: no acute findings - patient afebrile, no leukocytosis - Flu neg, strep neg - UA unremarkbale - UCx: no growth - BCx: no growth x48 hours - Throat Cx: no growth - Influenza a/b: negative - Zithromax 500mg IVPB daily - Robitussin 10ml PO q4h PRN cough - Duonebs INH q4h PRN - ID consulted (Dr. Johnson); recommends: start tamiflu - Patient has decreased appetite; start ensure TID Atrial Fibrillation - EKG on admission: A.fib with RVR @114bpm - Continue home eliquis 5mg PO BID CABG - Continue home ASA 81 PO daily HTN - Continue home lopressor 50mg PO BID - Continue home losartan 25mg PO daily T2DM - Med dose sliding scale - Hypoglycemia protocol - Accuchecks ACHS - Follow-up HbA1c Peripheral Neuropathy - Lower extremity weakness improving - No focal deficits on physical exam - Continue home lyrica 50mg PO BID - Fall precautions - PT/OT PPX: GI: pepcid 10mg PO daily DVT: SCDs HHD Patient seen and case discussed in detail with Dr. Andreea Del Cid PGY1
--- NOTE | 2018-10-22 15:55 | CT ---
Date of service: 10/22/2018 PROCEDURE: CT Chest without contrast HISTORY: Infiltrate COMPARISON: Comparison made with chest radiograph dated 10/19/2018. Correlation also made with CT scan chest 08/05/2017 which imaged both lung bases. TECHNIQUE: Contiguous axial images were obtained through the chest without intravenous contrast enhancement. Sagittal and coronal reconstructions were performed. Radiation dose: Total exam DLP = 369.43 mGy-cm. This CT exam was performed using one or more of the following dose reduction techniques: Automated exposure control, adjustment of the mA and/or kV according to patient size, and/or use of iterative reconstruction technique. FINDINGS: LUNGS: Fairly extensive centrilobular and panlobular emphysematous changes upper lobe predominance. The interstitial markings are also increased. [id number] passive/dependent type atelectasis seen both posterior lower lung ann left side greater and more confluent than the right. MEDIASTINUM: Heart is markedly enlarged with apparent youngblood chamber enlargement. The ascending thoracic aorta measures approximately need 3.4 cm and DA descending thoracic aorta measures approximately 2.8 cm. Mild aortic atherosclerotic calcification. Pulmonary trunk measures approximately 3.1 cm. There are multiple small to mildly enlarged mediastinal lymph nodes, the largest in the right paratracheal region measuring approximately 1.6 cm.. Evaluation for hilar adenopathy is limited due to the lack of circulating intravenous contrast material. Trachea is midline and patent with no large central endoluminal lesions. PLEURA: No evidence of effusion or pneumothorax. BONES: Multilevel degenerative spondylosis of the thoracic spine. No acute compression fractures no retropulsed fragments. UPPER ABDOMEN: Mild fatty hepatic infiltration. Redemonstrated is a calculus The pancreas is atrophic and fatty replaced. Within the gallbladder neck OTHER FINDINGS: None. IMPRESSION: Fairly extensive centrilobular and panlobular emphysematous changes upper lobe predominance. The interstitial markings are also increased. [id number] passive/dependent type atelectasis seen both posterior lower lung ann left side greater and more confluent than the right. Multiple small to medium-sized mediastinal lymph nodes. Cholelithiasis. Fatty hepatic infiltration. Cardiomegaly with youngblood chamber enlargement.
--- NOTE | 2018-10-22 19:37 | PN ---
DATE: 10/22/2018 SUBJECTIVE: The patient is seen in bed, in no acute distress, and nontoxic. PHYSICAL EXAMINATION: VITAL SIGNS: Temperature is 99, blood pressure is 120/60, and respiratory rate of 18. HEENT: Unremarkable. NECK: Supple. LUNGS: Have decreased breath sounds. HEART: Normal S1 and S2. ABDOMEN: Soft. LABORATORY DATA: Reveals a white count of 12,700, hemoglobin of 12, and platelets of 173. BUN of 25 and creatinine of 0.8. Urinalysis is noted. Serology is negative. Microbiology reveals the urine cultures are negative. Blood cultures are negative. Throat cultures are negative. Review of orders reveals the patient to be on p.o. doxycycline and IV ceftriaxone. The patient had a CAT scan of the chest, results are pending. ASSESSMENT AND PLAN: This is an 83-year-old female with coronary artery disease, hypertension, diabetes, peripheral neuropathy, arthritis, anxiety, depression, and obesity, body mass index of 35 with a history of coronary bypass graft and now with: 1. Sepsis with community-acquired pneumonia, on ceftriaxone and doxycycline with acute diastolic congestive heart failure and drop of chronic congestive heart failure, and day #2 of doxycycline and ceftriaxone, awaiting for pancultures and echocardiogram results and CAT scan of the chest results. We will follow with you. The patient had negative procalcitonin with negative pancultures. Duy Johnson MD
== END 2018-10-22 17:06 | DRG 152 ==
LOC: ED 18:33 → ERH 22:42 → 2RNO 23:57
PROVIDERS: ADMIT Internal Medicine; ATTEND Internal Medicine
DX: J06.9 Acute upper respiratory infection, unspecified (principal); I50.33 Acute on chronic diastolic (congestive) heart failure; I11.0 Hypertensive heart disease with heart failure; I48.91 Unspecified atrial fibrillation; E11.42 Type 2 diabetes mellitus with diabetic polyneuropathy; R26.2 Difficulty in walking, not elsewhere classified; R09.02 Hypoxemia; F32.9 Major depressive disorder, single episode, unspecified; F41.9 Anxiety disorder, unspecified; M19.90 Unspecified osteoarthritis, unspecified site; I25.10 Atherosclerotic heart disease of native coronary artery without angina pectoris; I27.20 Pulmonary hypertension, unspecified; E66.9 Obesity, unspecified; Z68.35 Body mass index [BMI] 35.0-35.9, adult; Z79.899 Other long term (current) drug therapy; Z79.01 Long term (current) use of anticoagulants; Z95.1 Presence of aortocoronary bypass graft; Z79.84 Long term (current) use of oral hypoglycemic drugs; Z87.891 Personal history of nicotine dependence; Z95.5 Presence of coronary angioplasty implant and graft; Z79.82 Long term (current) use of aspirin

== ENCOUNTER 2018-10-22 17:09 | Inpatient (IN) | payer OTHER ==
[2018-10-22 17:15] VITALS: BMI 34.9
[2018-10-22] MEDS ORDERED: Albuterol-Ipratrop 3 mg / 0.5 (3 ml) UD IH PRN (17:15)
[2018-10-22] MEDS ORDERED: guaiFENesin DM 200 mg-20 mg/10 ml UD PO PRN (17:15)
[2018-10-22] MEDS ORDERED: Dextrose 50% SYRINGE Inj (50 ml) IV PRN (18:24)
[2018-10-22] MEDS: Insulin Lispro (humaLOG) MEDIUM Coverage SC SCH (22:40)
[2018-10-23] MEDS ORDERED: cefTRIAXone 1 gm 1 GM/100 ML BAG IVPB SCH ×2 (06:00)
[2018-10-23 06:43] LABS: BASO # 0.03 K/mm3 (0.0-2.0); BASO % 0.2 % (0.0-3.0); EOS % 0.1 % (1.5-5.0); GRAN # 9.63 (1.4-6.5); GRAN % 76.1 % (50.0-68.0); HEMOGLOBIN 13.1 g/dL (12.0-16.0); LYMPH # 1.7 (1.2-3.4); LYMPH % 13.3 % (22.0-35.0); MEAN CELL VOLUME 91.1 fl (80.0-105.0); MEAN CORPUSCULAR HEMOGLOBIN 29.1 pg (25.0-35.0); MEAN PLATELET VOLUME 11.1 fl (7.0-11.0); MONO # 1.3 (0.1-0.6); MONO % 10.3 % (1.0-6.0); RBC 4.5 10^6/uL (3.5-6.1); RED CELL DISTRIBUTION WIDTH 13.4 % (11.5-14.5); WHITE BLOOD COUNT 12.7 10^3/uL (4.5-11.0)
[2018-10-23] MEDS: Insulin Lispro (humaLOG) MEDIUM Coverage SC SCH ×4 (06:45→21:54)
[2018-10-23 07:11] LABS: ALB/GLOB RATIO 0.9 (1.1-1.8); ALBUMIN 3.5 g/dL (3.0-4.8); ALT/SGPT 13 U/L (7-56); AST/SGOT 19 U/L (14-36); BLOOD UREA NITROGEN 23 mg/dL (7-21); CALCIUM 8.4 mg/dL (8.4-10.5); GFR NON-AFRICAN AMERICAN > 60
--- NOTE | 2018-10-23 14:22 | CP.PCM.CON ---
<NahumJeff - Last Filed: 10/23/18 14:08> History of Present Illness - History of Present Illness History of Present Illness: ID Consult Note - Dr. Lazaro CC; Weakness, cough HPI; 83 F with a PMHx of Afib on Elaquis, HTN, and DM2 that presented to [facility] with B/L progressive leg weakness and reported difficulty ambulating although the pt uses an assisstive device in a cane. Patient visited her PMD prior to arrival to the ED, she was feverish with a temp of 102 with associated symptoms of dry and nonproductive cough. During the course of admission, pt's lower extremity weakness improved and was treated for Community acquired pneumonia. Throat culture revealed no growth. Urine culture revealed no growth. Influenza A/B was negative. Patient was treated with prophylactic Zithromax 500mg IVPB daily, paz pitts and ID was consulted. CT chest was obtained. It was recommended by PT to transfer pt to TCU for rehabilitation. Pt to complete 5 days course of abx for community acquired pneumonia. Pt was seen and examined at bedside. Pt tolerating her physical therapy this morning without issue. Pt moving bowels and bladder regularly, denied fever, chills, shortness of breath, chest pains, abdominal pains, nausea, vomiting, diarrhea, or urinary symptoms. PMHx: Afib on Elaquis, HTN, and DM2 PSx: CABG SHx: former smoker, denies etoh or recreational drugs FamHx: Noncontributory Allergies: NKDA Meds: Reviewed Review of Systems - Review of Systems Review of Systems: as per HPI otherwise negative Past Patient History - Infectious Disease Hx of Infectious Diseases: None - Past Social History Smoking Status: Never Smoked - CARDIAC Hx Cardiac Disorders: Yes (AFIB) Hx Hypertension: Yes - PULMONARY Hx Respiratory Disorders: Yes Hx Respiratory Tract Infection: Yes (Current 10/19/18.) - NEUROLOGICAL Hx Neurological Disorder: Yes (Peripheral Neuropathy) Hx Dizziness: Yes (Vertigo) - HEENT Hx HEENT Problems: No (Denied by pt.) - RENAL Hx Chronic Kidney Disease: No (Denied by pt.) - ENDOCRINE/METABOLIC Hx Diabetes Mellitus Type 2: Yes - HEMATOLOGICAL/ONCOLOGICAL Hx Blood Disorders: No (Denied by pt.) - INTEGUMENTARY Hx Dermatological Problems: No (Denied by pt.) - MUSCULOSKELETAL/RHEUMATOLOGICAL Hx Arthritis: Yes (knees; hands) - GASTROINTESTINAL Hx Gastrointestinal Disorders: Yes Hx Diverticulitis: Yes (Hx of diverticulosis) Hx Gastroesophageal Reflux: Yes - GENITOURINARY/GYNECOLOGICAL Hx Genitourinary Disorders: Yes Hx Incontinence: Yes Hx Urinary Tract Infection: Yes - PSYCHIATRIC Hx Substance Use: No - SURGICAL HISTORY Hx Surgeries: Yes Hx Cardiac Catheterization: Yes (Stent x 1) Hx Coronary Stent: Yes Hx Open Heart Surgery: Yes - ANESTHESIA Hx Anesthesia Reactions: No Hx Malignant Hyperthermia: No Meds Allergies/Adverse Reactions: Allergies Allergy/AdvReac Type Severity Reaction Status Date / Time No Known Allergies Allergy Verified 10/22/18 17:15 - Medications Medications: Current Medications Acetaminophen (Tylenol 325mg Tab) 650 mg PO Q6H PRN; Protocol PRN Reason: Fever >100.4 F Albuterol/Ipratropium (Duoneb 3 Mg/0.5 Mg (3 Ml) Ud) 3 ml IH Q4H PRN; Protocol PRN Reason: Shortness of Breath Apixaban (Eliquis) 5 mg PO Q12 MAK; Protocol Last Admin: 10/23/18 10:10 Dose: 5 mg Aspirin (Ecotrin) 81 mg PO 0800 MAK; Protocol Last Admin: 10/23/18 07:59 Dose: 81 mg Dextrose (Dextrose 50% Inj) 0 ml IV STAT PRN; Protocol PRN Reason: Hypoglycemia Protocol Donepezil HCl (Aricept) 10 mg PO HS MAK; Protocol Last Admin: 10/22/18 21:23 Dose: 10 mg Doxycycline Hyclate (Doryx) 100 mg PO Q12 MAK; Protocol Stop: 10/30/18 22:00 Last Admin: 10/23/18 10:05 Dose: 100 mg Famotidine (Pepcid) 10 mg PO 2200 MAK; Protocol Last Admin: 10/22/18 23:03 Dose: 10 mg Guaifenesin/Dextromethorphan (Robitussin Dm) 10 ml PO Q4H PRN; Protocol PRN Reason: Cough Dextrose (Dextrose 5% In Water 1000 Ml) 1,000 mls @ 0 mls/hr IV .Q0M PRN; Protocol PRN Reason: Hypoglycemia Protocol Ceftriaxone Sodium (Rocephin 1 Gram Ivpb) 1 gm in 100 mls @ 100 mls/hr IVPB 0600 MAK; Protocol Stop: 10/31/18 06:00 Last Admin: 10/23/18 05:22 Dose: 100 mls/hr Insulin Human Lispro (Humalog Med) 0 units SC ACHS [facility]; Protocol Last Admin: 10/23/18 12:11 Dose: 3 units Losartan Potassium (Cozaar) 25 mg PO DAILY [facility]; Protocol Last Admin: 10/23/18 10:06 Dose: 25 mg Memantine (Namenda) 5 mg PO Q12 [facility]; Protocol Last Admin: 10/23/18 10:10 Dose: 5 mg Metoprolol Tartrate (Lopressor) 50 mg PO 0800,1800 [facility]; Protocol Last Admin: 10/23/18 07:59 Dose: 50 mg Mupirocin (Bactroban Ointment) 0 gm NS BID [facility] Stop: 10/28/18 10:01 Oseltamivir Phosphate (Tamiflu) 30 mg PO Q12 [facility]; Protocol Last Admin: 10/23/18 10:10 Dose: 30 mg Pregabalin (Lyrica) 50 mg PO Q12 [facility]; Protocol Last Admin: 10/23/18 10:13 Dose: 50 mg Physical Exam - Constitutional Appears: No Acute Distress - Head Exam Head Exam: ATRAUMATIC, NORMAL INSPECTION, NORMOCEPHALIC - Eye Exam Eye Exam: EOMI, Normal appearance, PERRL Pupil Exam: NORMAL ACCOMODATION, PERRL - ENT Exam ENT Exam: Mucous Membranes Moist, Normal Exam - Neck Exam Neck exam: Positive for: Normal Inspection - Respiratory Exam Respiratory Exam: Clear to Auscultation Bilateral, NORMAL BREATHING PATTERN - Cardiovascular Exam Cardiovascular Exam: REGULAR RHYTHM, +S1, +S2 - GI/Abdominal Exam GI & Abdominal Exam: Normal Bowel Sounds, Soft. absent: Tenderness - Extremities Exam Extremities exam: Positive for: normal inspection - Neurological Exam Neurological exam: Alert, CN II-XII Intact, Normal Gait, Oriented x3, Reflexes Normal - Psychiatric Exam Psychiatric exam: Normal Affect, Normal Mood - Skin Skin Exam: Dry, Intact, Normal Color, Warm Results - Vital Signs Recent Vital Signs: Last Vital Signs Temp Pulse 85 10/23/18 11:33 Resp 18 10/22/18 19:34 BP 125/68 10/23/18 11:33 Pulse Ox 98 10/23/18 11:33 - Labs Result Diagrams: 10/23/18 06:00 10/23/18 06:00 Labs: Laboratory Results - last 24 hr 10/22/18 10/23/18 10/23/18 22:38 06:00 06:00 WBC 12.7 H RBC 4.50 Hgb 13.1 Hct 41.0 MCV 91.1 MCH 29.1 MCHC 32.0 RDW 13.4 Plt Count 173 MPV 11.1 H Gran % 76.1 H Lymph % (Auto) 13.3 L [place] % (Auto) 10.3 H Eos % (Auto) 0.1 L Baso % (Auto) 0.2 Gran # 9.63 H Lymph # (Auto) 1.7 [place] # (Auto) 1.3 H Eos # (Auto) 0.0 Baso # (Auto) 0.03 Sodium 137 Potassium 4.3 Chloride 101 Carbon Dioxide 26 Anion Gap 14 BUN 23 H Creatinine 0.7 Est GFR ( Amer) > 60 Est GFR (Non-Af Amer) > 60 POC Glucose (mg/dL) 176 H Random Glucose 146 H Calcium 8.4 Total Bilirubin 0.7 AST 19 ALT 13 Alkaline Phosphatase 72 Total Protein 7.3 Albumin 3.5 Globulin 3.8 Albumin/Globulin Ratio 0.9 L 10/23/18 11:25 WBC RBC Hgb Hct MCV MCH MCHC RDW Plt Count MPV Gran % Lymph % (Auto) [place] % (Auto) Eos % (Auto) Baso % (Auto) Gran # Lymph # (Auto) [place] # (Auto) Eos # (Auto) Baso # (Auto) Sodium Potassium Chloride Carbon Dioxide Anion Gap BUN Creatinine Est GFR ( Amer) Est GFR (Non-Af Amer) POC Glucose (mg/dL) 213 H Random Glucose Calcium Total Bilirubin AST ALT Alkaline Phosphatase Total Protein Albumin Globulin Albumin/Globulin Ratio Assessment & Plan - Assessment and Plan (Free Text) Assessment: 83 F with a PMHx of CAD, HTN, DM2, peripheral neuropathy and arthritis initially admitted for sepsis with community acquired pneumonia now in TCU for strength and conditioning as well as completing antibiotic course of 5 days total of tamiflu rocephin and doxycycline. Sepsis Community acquired pneumonia CHF HTN DM2 CAD Day 3 of [address]x negative CT demonstrated emphysematous changes and atelectasis MRSA screen positive Strep negative BloodCx neg Ucx Neg Seen reviewed and discussed with Dr. Lazaro <Edi Lazaro S - Last Filed: 10/23/18 21:58> Meds - Medications Medications: Current Medications Acetaminophen (Tylenol 325mg Tab) 650 mg PO Q6H PRN; Protocol PRN Reason: Fever >100.4 F Albuterol/Ipratropium (Duoneb 3 Mg/0.5 Mg (3 Ml) Ud) 3 ml IH Q4H PRN; Protocol PRN Reason: Shortness of Breath Apixaban (Eliquis) 5 mg PO Q12 MAK; Protocol Last Admin: 10/23/18 21:06 Dose: 5 mg Aspirin (Ecotrin) 81 mg PO 0800 MAK; Protocol Last Admin: 10/23/18 07:59 Dose: 81 mg Dextrose (Dextrose 50% Inj) 0 ml IV STAT PRN; Protocol PRN Reason: Hypoglycemia Protocol Donepezil HCl (Aricept) 10 mg PO HS MAK; Protocol Last Admin: 10/23/18 21:05 Dose: 10 mg Doxycycline Hyclate (Doryx) 100 mg PO Q12 MAK; Protocol Stop: 10/30/18 22:00 Last Admin: 10/23/18 21:05 Dose: 100 mg Famotidine (Pepcid) 10 mg PO 2200 MAK; Protocol Last Admin: 10/23/18 21:06 Dose: 10 mg Guaifenesin/Dextromethorphan (Robitussin Dm) 10 ml PO Q4H PRN; Protocol PRN Reason: Cough Dextrose (Dextrose 5% In Water 1000 Ml) 1,000 mls @ 0 mls/hr IV .Q0M PRN; Protocol PRN Reason: Hypoglycemia Protocol Ceftriaxone Sodium (Rocephin 1 Gram Ivpb) 1 gm in 100 mls @ 100 mls/hr IVPB DAILY MAK; Protocol Insulin Human Lispro (Humalog Med) 0 units SC ACHS MAK; Protocol Last Admin: 10/23/18 21:54 Dose: Not Given Losartan Potassium (Cozaar) 25 mg PO DAILY MAK; Protocol Last Admin: 10/23/18 10:06 Dose: 25 mg Memantine (Namenda) 5 mg PO Q12 MAK; Protocol Last Admin: 10/23/18 21:06 Dose: 5 mg Metoprolol Tartrate (Lopressor) 50 mg PO 0800,1800 MAK; Protocol Last Admin: 10/23/18 17:37 Dose: 50 mg Mupirocin (Bactroban Ointment) 0 gm NS BID MAK Stop: 10/28/18 10:01 Last Admin: 10/23/18 17:37 Dose: 1 applic Oseltamivir Phosphate (Tamiflu) 30 mg PO Q12 [facility]; Protocol Last Admin: 10/23/18 21:07 Dose: 30 mg Pregabalin (Lyrica) 50 mg PO Q12 [facility]; Protocol Last Admin: 10/23/18 21:10 Dose: 50 mg Results - Vital Signs Recent Vital Signs: Last Vital Signs Temp 97.6 F 10/23/18 16:30 Pulse 81 10/23/18 17:37 Resp 16 10/23/18 16:30 BP 111/62 10/23/18 17:37 Pulse Ox 95 10/23/18 16:30 - Labs Result Diagrams: 10/23/18 06:00 10/23/18 06:00 Labs: Laboratory Results - last 24 hr 10/22/18 10/23/18 10/23/18 22:38 06:00 06:00 WBC 12.7 H RBC 4.50 Hgb 13.1 Hct 41.0 MCV 91.1 MCH 29.1 MCHC 32.0 RDW 13.4 Plt Count 173 MPV 11.1 H Gran % 76.1 H Lymph % (Auto) 13.3 L [place] % (Auto) 10.3 H Eos % (Auto) 0.1 L Baso % (Auto) 0.2 Gran # 9.63 H Lymph # (Auto) 1.7 [place] # (Auto) 1.3 H Eos # (Auto) 0.0 Baso # (Auto) 0.03 Sodium 137 Potassium 4.3 Chloride 101 Carbon Dioxide 26 Anion Gap 14 BUN 23 H Creatinine 0.7 Est GFR ( Amer) > 60 Est GFR (Non-Af Amer) > 60 POC Glucose (mg/dL) 176 H Random Glucose 146 H Calcium 8.4 Total Bilirubin 0.7 AST 19 ALT 13 Alkaline Phosphatase 72 Total Protein 7.3 Albumin 3.5 Globulin 3.8 Albumin/Globulin Ratio 0.9 L 10/23/18 10/23/18 10/23/18 11:25 16:51 21:45 WBC RBC Hgb Hct MCV MCH MCHC RDW Plt Count MPV Gran % Lymph % (Auto) [place] % (Auto) Eos % (Auto) Baso % (Auto) Gran # Lymph # (Auto) [place] # (Auto) Eos # (Auto) Baso # (Auto) Sodium Potassium Chloride Carbon Dioxide Anion Gap BUN Creatinine Est GFR ( Amer) Est GFR (Non-Af Amer) POC Glucose (mg/dL) 213 H 124 H 219 H Random Glucose Calcium Total Bilirubin AST ALT Alkaline Phosphatase Total Protein Albumin Globulin Albumin/Globulin Ratio Assessment & Plan - Assessment and Plan (Free Text) Assessment: Infectious diseases Attending Physician Attestation Patient seen and examined, discussed with medical records clerk. I have reviewed the patient's history of present illness, past medical, social, personal and family histories, pertinent physical exam findings, course so far in this hospital admission, pertinent laboratory and imaging results. I agree with the above findings, assessment and plan. In addition, will continue Rocephin, Doxycycline and Tamiflu for this patient with probable community-acquired pneumonia. Complete total 5 days of Tamiflu, 5-7 days of Rocephin and Doxycycline.
--- NOTE | 2018-10-23 14:53 | CP.PCM.HP ---
History of Present Illness - History of Present Illness History of Present Illness: PGY1 Medicine History and Physical Exam Note Patient is a 83-year-old Female with PMH yoF with PMH Atrial Fibrillation (on eliquis), HTN, T2DM, peripheral neuropathy who presented to [facility] ED with bilateral leg weakness for 2 days. Patient reported difficulty ambulating at home due to feeling weak in the legs, which has been progressive over the past few months. Patient reported normally ambulating with a cane. Of note, Patient also stated she was not "feel well" and has had decreased a ppetite, but denies weight loss. Patient visited her PMD prior to arrival to the ED, where her temp was taken to be 102F. Patient also reported hoarseness in her voice and a dry, nonproductive cough for a few days. Please see chart for details. Patient was subsequently admitted to rule-out pneumonia. The following day, the Patient's lower extremity weakness improved. Patient was restarted on home meds for neuropathy. Patient's CURB65 score=1 on admission. Thus, pneumonia is unlikely. Throat culture revealed no growth. Urine culture revealed no growth. Influenza A/B was negative. Patient was treated with prophylactic Zithromax 500mg IVPB daily, paz pitts and ID was consulted. CT chest was obtained. Patient also has atrial-fibrillation, HTN, and DM. Patient was started on home meds and was treated for diabetes with insulin sliding scale. Physical Therapy evaluated and treated the Patient and recommended TCU for rehabilitation. On day of discharge, Patient was hemodynamically stable and was medically optimized for discharge. Please see chart for complete summary and details. Patient now in TCU for rehabilitation. SxH: CABG SocH: former smoker, denies ETOH or recreational drugs FamH: denies Allergies: NKDA PMD: [place] Present on Admission - Present on Admission Any Indicators Present on Admission: No History of DVT/PE: No History of Uncontrolled Diabetes: No Urinary Catheter: No Decubitus Ulcer Present: No History Surgical Site Infection Following: None Review of Systems - Review of Systems All systems: reviewed and no additional remarkable complaints except Review of Systems: ROS negative other than mentioned in HPI Past Patient History - Infectious Disease Hx of Infectious Diseases: None - Past Social History Smoking Status: Never Smoked - CARDIAC Hx Cardiac Disorders: Yes (AFIB) Hx Hypertension: Yes - PULMONARY Hx Respiratory Disorders: Yes Hx Respiratory Tract Infection: Yes (Current 10/19/18.) - NEUROLOGICAL Hx Neurological Disorder: Yes (Peripheral Neuropathy) Hx Dizziness: Yes (Vertigo) - HEENT Hx HEENT Problems: No (Denied by pt.) - RENAL Hx Chronic Kidney Disease: No (Denied by pt.) - ENDOCRINE/METABOLIC Hx Diabetes Mellitus Type 2: Yes - HEMATOLOGICAL/ONCOLOGICAL Hx Blood Disorders: No (Denied by pt.) - INTEGUMENTARY Hx Dermatological Problems: No (Denied by pt.) - MUSCULOSKELETAL/RHEUMATOLOGICAL Hx Arthritis: Yes (knees; hands) - GASTROINTESTINAL Hx Gastrointestinal Disorders: Yes Hx Diverticulitis: Yes (Hx of diverticulosis) Hx Gastroesophageal Reflux: Yes - GENITOURINARY/GYNECOLOGICAL Hx Genitourinary Disorders: Yes Hx Incontinence: Yes Hx Urinary Tract Infection: Yes - PSYCHIATRIC Hx Substance Use: No - SURGICAL HISTORY Hx Surgeries: Yes Hx Cardiac Catheterization: Yes (Stent x 1) Hx Coronary Stent: Yes Hx Open Heart Surgery: Yes - ANESTHESIA Hx Anesthesia Reactions: No Hx Malignant Hyperthermia: No Meds Allergies/Adverse Reactions: Allergies Allergy/AdvReac Type Severity Reaction Status Date / Time No Known Allergies Allergy Verified 10/22/18 17:15 Physical Exam - Additional Findings Additional findings: - Constitutional Appears: Well, No Acute Distress - Head Exam Head Exam: ATRAUMATIC, NORMOCEPHALIC - Eye Exam Eye Exam: EOMI, Normal appearance, PERRL Pupil Exam: NORMAL ACCOMODATION - ENT Exam ENT Exam: Mucous Membranes Moist, Normal Exam, Normal Oropharynx - Neck Exam Neck exam: Positive for: Normal Inspection - Respiratory Exam Respiratory Exam: Clear to Auscultation Bilateral, NORMAL BREATHING PATTERN. absent: Decreased Breath Sounds, Rales, Rhonchi, Wheezes, Respiratory Distress - Cardiovascular Exam Cardiovascular Exam: Irregular Rhythm, +S1, +S2. absent: Gallop, Rubs, Systolic Murmur - GI/Abdominal Exam GI & Abdominal Exam: Normal Bowel Sounds, Soft. absent: Distended, Firm, Tenderness - Extremities Exam Extremities exam: Positive for: normal inspection. Negative for: calf tenderness, pedal edema - Back Exam Back exam: NORMAL INSPECTION - Neurological Exam Neurological exam: Alert, CN II-XII Intact, Oriented x3, Reflexes Normal - Expanded Neurological Exam Expanded Sensory exam: Lower Extremity 2 Point Discrimination: Normal, Lower Extremity Light Touch: Normal Neuro motor strength exam: Left Upper Extremity: 5, Right Upper Extremity: 5, Left Lower Extremity: 5, Right Lower Extremity: 5 - Psychiatric Exam Psychiatric exam: Normal Affect, Normal Mood - Skin Skin Exam: Dry Results - Vital Signs Recent Vital Signs: Last Vital Signs Temp Pulse 85 10/23/18 11:33 Resp 18 10/22/18 19:34 BP 125/68 10/23/18 11:33 Pulse Ox 98 10/23/18 11:33 - Labs Result Diagrams: 10/23/18 06:00 10/23/18 06:00 Labs: Laboratory Results - last 24 hr 10/22/18 10/23/18 10/23/18 22:38 06:00 06:00 WBC 12.7 H RBC 4.50 Hgb 13.1 Hct 41.0 MCV 91.1 MCH 29.1 MCHC 32.0 RDW 13.4 Plt Count 173 MPV 11.1 H Gran % 76.1 H Lymph % (Auto) 13.3 L [place] % (Auto) 10.3 H Eos % (Auto) 0.1 L Baso % (Auto) 0.2 Gran # 9.63 H Lymph # (Auto) 1.7 [place] # (Auto) 1.3 H Eos # (Auto) 0.0 Baso # (Auto) 0.03 Sodium 137 Potassium 4.3 Chloride 101 Carbon Dioxide 26 Anion Gap 14 BUN 23 H Creatinine 0.7 Est GFR ( Amer) > 60 Est GFR (Non-Af Amer) > 60 POC Glucose (mg/dL) 176 H Random Glucose 146 H Calcium 8.4 Total Bilirubin 0.7 AST 19 ALT 13 Alkaline Phosphatase 72 Total Protein 7.3 Albumin 3.5 Globulin 3.8 Albumin/Globulin Ratio 0.9 L 10/23/18 11:25 WBC RBC Hgb Hct MCV MCH MCHC RDW Plt Count MPV Gran % Lymph % (Auto) [place] % (Auto) Eos % (Auto) Baso % (Auto) Gran # Lymph # (Auto) [place] # (Auto) Eos # (Auto) Baso # (Auto) Sodium Potassium Chloride Carbon Dioxide Anion Gap BUN Creatinine Est GFR ( Amer) Est GFR (Non-Af Amer) POC Glucose (mg/dL) 213 H Random Glucose Calcium Total Bilirubin AST ALT Alkaline Phosphatase Total Protein Albumin Globulin Albumin/Globulin Ratio Assessment & Plan - Assessment and Plan (Free Text) Assessment: 83-year-old Female with PMH Atrial Fibrillation, HTN, T2DM, peripheral neuropat hy who presents to ED with bilateral leg weakness x2 days, admitted for URI; rule-out pneumonia Patient medically optimized for discharge. Patient now in TCU for rehabilitation. Upper Respiratory Infection, likely viral etiology - CURB65 score: 1, Unlikely Pneumonia - Rule-out PNA vs. COPD vs. GERD - CXR: no infiltrates, effusions, congestion - CTA head/neck: no acute findings - Patient afebrile, no leukocytosis - Flu neg, strep neg - UA unremarkbale - UCx: no growth - BCx: no growth x48 hours - Throat Cx: no growth - Influenza a/b: negative - Antibiotics: Rocephin and Doxycycline - Robitussin 10ml PO q4h PRN cough - Duonebs INH q4h PRN - ID consulted (Dr. Johnson); recommends: start tamiflu - Patient has decreased appetite; start ensure TID Atrial Fibrillation - EKG on admission: A.fib with RVR @114bpm - Continue home eliquis 5mg PO BID CABG - Continue home ASA 81 PO daily HTN - Continue home lopressor 50mg PO BID - Continue home losartan 25mg PO daily T2DM - Med dose sliding scale - Hypoglycemia protocol - Accuchecks ACHS - Follow-up HbA1c Peripheral Neuropathy - Lower extremity weakness improving - No focal deficits on physical exam - Continue home lyrica 50mg PO BID - Fall precautions - PT/OT PPX: GI: pepcid 10mg PO daily DVT: SCDs HHD Patient seen and case discussed in detail with Dr. Ronald Del Cid PGY1
[2018-10-23] MEDS: Mupirocin 2% Ointment 15 GM TUBE NS SCH (17:37)
[2018-10-24] MEDS: Insulin Lispro (humaLOG) MEDIUM Coverage SC SCH ×4 (06:52→22:55)
[2018-10-24 07:13] LABS: BASO # 0.03 K/mm3 (0.0-2.0); BASO % 0.3 % (0.0-3.0); EOS # 0.2 (0.0-0.7); EOS % 1.5 % (1.5-5.0); GRAN # 7.91 (1.4-6.5); GRAN % 70.6 % (50.0-68.0); HEMOGLOBIN 13.2 g/dL (12.0-16.0); LYMPH # 2.1 (1.2-3.4); LYMPH % 18.9 % (22.0-35.0); MEAN CELL VOLUME 91.2 fl (80.0-105.0); MEAN CORPUSCULAR HEMOGLOBIN 29.2 pg (25.0-35.0); MONO % 8.7 % (1.0-6.0); RBC 4.52 10^6/uL (3.5-6.1); RED CELL DISTRIBUTION WIDTH 13.4 % (11.5-14.5); WHITE BLOOD COUNT 11.2 10^3/uL (4.5-11.0)
[2018-10-24 07:54] LABS: BLOOD UREA NITROGEN 28 mg/dL (7-21); CALCIUM 8.5 mg/dL (8.4-10.5); GFR NON-AFRICAN AMERICAN 60
[2018-10-24 07:55] LABS: ALB/GLOB RATIO 0.9 (1.1-1.8); ALBUMIN 3.2 g/dL (3.0-4.8); ALT/SGPT 18 U/L (7-56); AST/SGOT 20 U/L (14-36)
[2018-10-24] MEDS: Mupirocin 2% Ointment 15 GM TUBE NS SCH ×2 (10:14→17:39)
[2018-10-24] MEDS: cefTRIAXone 1 gm 1 GM/100 ML BAG IVPB SCH (12:24)
--- NOTE | 2018-10-24 13:32 | PN ---
DATE: 10/24/2018 SUBJECTIVE: The patient is in bed, in no acute distress, nontoxic. OBJECTIVE: VITAL SIGNS: Temperature is 97, blood pressure is 106/60, respiratory rate of 18, heart rate of 91. HEENT: Unremarkable. NECK: Supple. LUNGS: Have decreased breath sounds. HEART: Normal S1, S2. ABDOMEN: Soft, nontender. LABORATORY EXAMINATION: Reveals a white count of 11,200 and platelets of 172. BUN of 28, creatinine of 0.9. ASSESSMENT AND PLAN: An 83-year-old female with atrial fibrillation, hypertension, diabetes, peripheral neuropathy, arthritis, admitted with sepsis with community-acquired pneumonia and day #4 of 5, today is day #4, would complete 5 days of antibiotics and the patient with congestive heart failure and review of orders confirms the patient to be on doxy and ceftriaxone. We will follow with you. Duy Johnson MD
[2018-10-25] MEDS: Insulin Lispro (humaLOG) MEDIUM Coverage SC SCH ×4 (06:34→23:00)
[2018-10-25] MEDS: cefTRIAXone 1 gm 1 GM/100 ML BAG IVPB SCH (09:01)
[2018-10-25] MEDS: Mupirocin 2% Ointment 15 GM TUBE NS SCH ×2 (09:02→17:29)
--- NOTE | 2018-10-25 15:21 | CP.PCM.PN ---
Subjective - Date & Time of Evaluation Date of Evaluation: 10/25/18 Time of Evaluation: 15:18 - Subjective Subjective: PGY1 Medicine Progress Note for Dr. Cardenas Patient seen and evaluated at bedside this morning. Tolerating her diet, appetite is improving. Patient able to get out of bed to chair with assistance. Patient otherwise denies nausea, abdominal pain, vomiting, fever, chills, lower extremity pain, and/or diarrhea. Objective - Vital Signs/Intake and Output Vital Signs (last 24 hours): Temp Pulse Resp BP Pulse Ox 97.8 F 75 16 117/70 96 10/24/18 16:00 10/25/18 09:01 10/24/18 16:00 10/25/18 09:01 10/24/18 16:00 Intake and Output: 10/25/18 10/25/18 06:59 18:59 Intake Total 420 Balance 420 - Medications Medications: Current Medications Acetaminophen (Tylenol 325mg Tab) 650 mg PO Q6H PRN; Protocol PRN Reason: Fever >100.4 F Albuterol/Ipratropium (Duoneb 3 Mg/0.5 Mg (3 Ml) Ud) 3 ml IH Q4H PRN; Protocol PRN Reason: Shortness of Breath Apixaban (Eliquis) 5 mg PO Q12 MAK; Protocol Last Admin: 10/25/18 09:01 Dose: 5 mg Aspirin (Ecotrin) 81 mg PO 0800 MAK; Protocol Last Admin: 10/25/18 08:55 Dose: 81 mg Dextrose (Dextrose 50% Inj) 0 ml IV STAT PRN; Protocol PRN Reason: Hypoglycemia Protocol Donepezil HCl (Aricept) 10 mg PO HS MAK; Protocol Last Admin: 10/24/18 22:44 Dose: 10 mg Doxycycline Hyclate (Doryx) 100 mg PO Q12 MAK; Protocol Stop: 10/30/18 22:00 Last Admin: 10/25/18 09:01 Dose: 100 mg Famotidine (Pepcid) 10 mg PO 2200 MAK; Protocol Last Admin: 10/24/18 22:44 Dose: 10 mg Guaifenesin/Dextromethorphan (Robitussin Dm) 10 ml PO Q4H PRN; Protocol PRN Reason: Cough Dextrose (Dextrose 5% In Water 1000 Ml) 1,000 mls @ 0 mls/hr IV .Q0M PRN; Protocol PRN Reason: Hypoglycemia Protocol Ceftriaxone Sodium (Rocephin 1 Gram Ivpb) 1 gm in 100 mls @ 100 mls/hr IVPB DAILY [facility]; Protocol Last Admin: 10/25/18 09:01 Dose: 100 mls/hr Insulin Human Lispro (Humalog Med) 0 units SC ACHS COUNT [facility]CLUD[facility]; Protocol Last Admin: 10/25/18 12:17 Dose: 5 units Losartan Potassium (Cozaar) 25 mg PO DAILY MAK; Protocol Last Admin: 10/25/18 09:01 Dose: 25 mg Memantine (Namenda) 5 mg PO Q12 MAK; Protocol Last Admin: 10/25/18 09:01 Dose: 5 mg Metoprolol Tartrate (Lopressor) 50 mg PO 0800,1800 MAK; Protocol Last Admin: 10/25/18 08:55 Dose: 50 mg Mupirocin (Bactroban Ointment) 0 gm NS BID MAK Stop: 10/28/18 10:01 Last Admin: 10/25/18 09:02 Dose: 1 applic Oseltamivir Phosphate (Tamiflu) 30 mg PO Q12 MAK; Protocol Last Admin: 10/25/18 09:01 Dose: 30 mg Pregabalin (Lyrica) 50 mg PO Q12 MAK; Protocol Last Admin: 10/25/18 09:03 Dose: 50 mg - Labs Labs: 10/24/18 06:30 10/24/18 06:30 - Additional Findings Additional findings: - Constitutional Appears: Well, No Acute Distress - Head Exam Head Exam: ATRAUMATIC, NORMOCEPHALIC - Eye Exam Eye Exam: EOMI, Normal appearance, PERRL Pupil Exam: NORMAL ACCOMODATION - ENT Exam ENT Exam: Mucous Membranes Moist, Normal Exam, Normal Oropharynx - Neck Exam Neck exam: Positive for: Normal Inspection - Respiratory Exam Respiratory Exam: Clear to Auscultation Bilateral, NORMAL BREATHING PATTERN. absent: Decreased Breath Sounds, Rales, Rhonchi, Wheezes, Respiratory Distress - Cardiovascular Exam Cardiovascular Exam: Irregular Rhythm, +S1, +S2. absent: Gallop, Rubs, Systolic Murmur - GI/Abdominal Exam GI & Abdominal Exam: Normal Bowel Sounds, Soft. absent: Distended, Firm, Tenderness - Extremities Exam Extremities exam: Positive for: normal inspection. Negative for: calf tenderness, pedal edema - Back Exam Back exam: NORMAL INSPECTION - Neurological Exam Neurological exam: Alert, CN II-XII Intact, Oriented x3, Reflexes Normal - Expanded Neurological Exam Expanded Sensory exam: Lower Extremity 2 Point Discrimination: Normal, Lower Extremity Light Touch: Normal Neuro motor strength exam: Left Upper Extremity: 5, Right Upper Extremity: 5, Left Lower Extremity: 5, Right Lower Extremity: 5 - Psychiatric Exam Psychiatric exam: Normal Affect, Normal Mood - Skin Skin Exam: Dry Assessment and Plan - Assessment and Plan (Free Text) Assessment: 83-year-old Female with PMH Atrial Fibrillation, HTN, T2DM, peripheral neuropathy who presents to ED with bilateral leg weakness x2 days, admitted for URI; rule-out pneumonia Patient medically optimized for discharge. Patient now in TCU for rehabilitation. Upper Respiratory Infection, likely viral etiology - CURB65 score: 1, Unlikely Pneumonia - Rule-out PNA vs. COPD vs. GERD - CXR: no infiltrates, effusions, congestion - CTA head/neck: no acute findings - Patient afebrile, no leukocytosis - Flu neg, strep neg - UA unremarkbale - UCx: no growth - BCx: no growth x48 hours - Throat Cx: no growth - Influenza a/b: negative - Antibiotics: Rocephin and Doxycycline - Robitussin 10ml PO q4h PRN cough - Duonebs INH q4h PRN - ID consulted (Dr. Johnson); recommends: start tamiflu - Patient has decreased appetite; start ensure TID Atrial Fibrillation - EKG on admission: A.fib with RVR @114bpm - Continue home eliquis 5mg PO BID CABG - Continue home ASA 81 PO daily HTN - Continue home lopressor 50mg PO BID - Continue home losartan 25mg PO daily T2DM - Med dose sliding scale - Hypoglycemia protocol - Accuchecks ACHS - Follow-up HbA1c Peripheral Neuropathy - Lower extremity weakness improving - No focal deficits on physical exam - Continue home lyrica 50mg PO BID - Fall precautions - PT/OT PPX: GI: pepcid 10mg PO daily DVT: SCDs HHD Patient seen and case discussed in detail with Dr. Ronald Del Cid PGY1
--- NOTE | 2018-10-25 21:46 | CP.PCM.PN ---
Subjective - Date & Time of Evaluation Date of Evaluation: 10/25/18 Time of Evaluation: 12:15 - Subjective Subjective: Afebrile, comfortable. Objective - Vital Signs/Intake and Output Vital Signs (last 24 hours): Temp Pulse Resp BP Pulse Ox 98.1 F 77 20 111/77 92 L 10/25/18 16:00 10/25/18 17:31 10/25/18 16:00 10/25/18 17:31 10/25/18 16:00 Intake and Output: 10/25/18 10/26/18 18:59 06:59 Intake Total 420 Balance 420 - Medications Medications: Current Medications Acetaminophen (Tylenol 325mg Tab) 650 mg PO Q6H PRN; Protocol PRN Reason: Fever >100.4 F Albuterol/Ipratropium (Duoneb 3 Mg/0.5 Mg (3 Ml) Ud) 3 ml IH Q4H PRN; Protocol PRN Reason: Shortness of Breath Apixaban (Eliquis) 5 mg PO Q12 MAK; Protocol Last Admin: 10/25/18 09:01 Dose: 5 mg Aspirin (Ecotrin) 81 mg PO 0800 MAK; Protocol Last Admin: 10/25/18 08:55 Dose: 81 mg Dextrose (Dextrose 50% Inj) 0 ml IV STAT PRN; Protocol PRN Reason: Hypoglycemia Protocol Donepezil HCl (Aricept) 10 mg PO HS MAK; Protocol Last Admin: 10/25/18 21:16 Dose: 10 mg Doxycycline Hyclate (Doryx) 100 mg PO Q12 MAK; Protocol Stop: 10/30/18 22:00 Last Admin: 10/25/18 21:16 Dose: 100 mg Famotidine (Pepcid) 10 mg PO 2200 MAK; Protocol Last Admin: 10/25/18 21:18 Dose: 10 mg Guaifenesin/Dextromethorphan (Robitussin Dm) 10 ml PO Q4H PRN; Protocol PRN Reason: Cough Dextrose (Dextrose 5% In Water 1000 Ml) 1,000 mls @ 0 mls/hr IV .Q0M PRN; Protocol PRN Reason: Hypoglycemia Protocol Ceftriaxone Sodium (Rocephin 1 Gram Ivpb) 1 gm in 100 mls @ 100 mls/hr IVPB DAILY [facility]; Protocol Last Admin: 10/25/18 09:01 Dose: 100 mls/hr Insulin Human Lispro (Humalog Med) 0 units SC ACHS [facility]; Protocol Last Admin: 10/25/18 17:30 Dose: Not Given Losartan Potassium (Cozaar) 25 mg PO DAILY [facility]; Protocol Last Admin: 10/25/18 09:01 Dose: 25 mg Memantine (Namenda) 5 mg PO Q12 MAK; Protocol Last Admin: 10/25/18 21:17 Dose: 5 mg Metoprolol Tartrate (Lopressor) 50 mg PO 0800,1800 MAK; Protocol Last Admin: 10/25/18 17:31 Dose: 50 mg Mupirocin (Bactroban Ointment) 0 gm NS BID MAK Stop: 10/28/18 10:01 Last Admin: 10/25/18 17:29 Dose: 1 applic Oseltamivir Phosphate (Tamiflu) 30 mg PO Q12 MAK; Protocol Last Admin: 10/25/18 21:18 Dose: 30 mg Pregabalin (Lyrica) 50 mg PO Q12 MAK; Protocol Last Admin: 10/25/18 21:17 Dose: 50 mg - Labs Labs: 10/24/18 06:30 10/24/18 06:30 - Constitutional Appears: Chronically Ill - Head Exam Head Exam: NORMAL INSPECTION - Respiratory Exam Respiratory Exam: Decreased Breath Sounds - Cardiovascular Exam Cardiovascular Exam: +S1, +S2 - GI/Abdominal Exam GI & Abdominal Exam: Soft. absent: Tenderness Assessment and Plan - Assessment and Plan (Free Text) Plan: Assessment consider community-acquired pneumonia as well as Influenza atrial fibrillation HTN DM peripheral neuropathy Plan continue Rocephin, Doxycycline for 5-7 days (day 5 today) complete 5 days of Tamiflu (Day 5 today) will continue to monitor clinically
[2018-10-26] MEDS: Insulin Lispro (humaLOG) MEDIUM Coverage SC SCH ×4 (07:09→21:40)
[2018-10-26] MEDS: Mupirocin 2% Ointment 15 GM TUBE NS SCH ×2 (09:51→17:28)
[2018-10-26] MEDS: cefTRIAXone 1 gm 1 GM/100 ML BAG IVPB SCH (09:53)
--- NOTE | 2018-10-26 21:12 | PN ---
DATE: 10/26/2018 SUBJECTIVE: The patient is seen in bed, in no acute distress. PHYSICAL EXAMINATION: VITAL SIGNS: Temperature is 97, blood pressure is 140/80, respiratory rate of 18, and heart rate of 101. HEENT: Unremarkable. NECK: Supple. LUNGS: Have decreased breath sounds. HEART: Normal S1 and S2. ABDOMEN: Soft and nontender. LABORATORY DATA: Reveals white count of 11,200 and hemoglobin of 13. BUN of 28 and creatinine of 0.9. ASSESSMENT AND PLAN: This is an 83-year-old female with community-acquired pneumonia as well as influenza, atrial fibrillation, diabetes, hypertension, and peripheral neuropathy, on ceftriaxone and doxycycline day #6, completed 5 days of Tamiflu. May discontinue treatment within the next 24 hours. Duy Johnson MD
[2018-10-27] MEDS: Insulin Lispro (humaLOG) MEDIUM Coverage SC SCH ×5 (06:45→21:58)
[2018-10-27] MEDS: Mupirocin 2% Ointment 15 GM TUBE NS SCH ×2 (10:55→18:03)
--- NOTE | 2018-10-27 15:25 | CP.PCM.PN ---
<Tarun Del Cid - Last Filed: 10/27/18 15:04> Subjective - Date & Time of Evaluation Date of Evaluation: 10/27/18 Time of Evaluation: 15:04 - Subjective Subjective: PGY1 Medicine Progress note for Dr. Gomez Patient was seen and evaluated at bedside this morning. Patient is without complaints. Patient able to get out of bed to chair with assistance. Patient states she is able to walk with PT. Patient denies chest pain, shortness of breath, dizziness, nausea, vomiting, headache, and/or fatigue. 12 Point ROS otherwise unremarkable. Objective - Vital Signs/Intake and Output Vital Signs (last 24 hours): Temp Pulse Resp BP Pulse Ox 97.4 F L 86 18 128/72 95 10/26/18 16:00 10/27/18 11:00 10/26/18 16:00 10/27/18 11:00 10/26/18 16:00 Intake and Output: 10/27/18 10/27/18 06:59 18:59 Intake Total 420 Balance 420 - Medications Medications: Current Medications Acetaminophen (Tylenol 325mg Tab) 650 mg PO Q6H PRN; Protocol PRN Reason: Fever >100.4 F Albuterol/Ipratropium (Duoneb 3 Mg/0.5 Mg (3 Ml) Ud) 3 ml IH Q4H PRN; Protocol PRN Reason: Shortness of Breath Apixaban (Eliquis) 5 mg PO Q12 MAK; Protocol Last Admin: 10/27/18 11:02 Dose: 5 mg Aspirin (Ecotrin) 81 mg PO 0800 MAK; Protocol Last Admin: 10/27/18 08:56 Dose: 81 mg Dextrose (Dextrose 50% Inj) 0 ml IV STAT PRN; Protocol PRN Reason: Hypoglycemia Protocol Donepezil HCl (Aricept) 10 mg PO HS MAK; Protocol Last Admin: 10/26/18 21:03 Dose: 10 mg Famotidine (Pepcid) 10 mg PO 2200 MAK; Protocol Last Admin: 10/26/18 21:05 Dose: 10 mg Guaifenesin/Dextromethorphan (Robitussin Dm) 10 ml PO Q4H PRN; Protocol PRN Reason: Cough Dextrose (Dextrose 5% In Water 1000 Ml) 1,000 mls @ 0 mls/hr IV .Q0M PRN; Protocol PRN Reason: Hypoglycemia Protocol Insulin Human Lispro (Humalog Med) 0 units SC ACHS [facility]; Protocol Last Admin: 10/27/18 12:40 Dose: 3 units Losartan Potassium (Cozaar) 25 mg PO DAILY [facility]; Protocol Last Admin: 10/27/18 11:00 Dose: 25 mg Memantine (Namenda) 5 mg PO Q12 [facility]; Protocol Last Admin: 10/27/18 11:04 Dose: 5 mg Metoprolol Tartrate (Lopressor) 50 mg PO 0800,1800 MAK; Protocol Last Admin: 10/27/18 08:57 Dose: 50 mg Mupirocin (Bactroban Ointment) 0 gm NS BID [facility] Stop: 10/28/18 10:01 Last Admin: 10/27/18 10:55 Dose: 1 applic Pregabalin (Lyrica) 50 mg PO Q12 MAK; Protocol Last Admin: 10/27/18 11:04 Dose: 50 mg - Labs Labs: 10/24/18 06:30 10/24/18 06:30 - Additional Findings Additional findings: - Constitutional Appears: Well, No Acute Distress - Head Exam Head Exam: ATRAUMATIC, NORMOCEPHALIC - Eye Exam Eye Exam: EOMI, Normal appearance, PERRL Pupil Exam: NORMAL ACCOMODATION - ENT Exam ENT Exam: Mucous Membranes Moist, Normal Exam, Normal Oropharynx - Neck Exam Neck exam: Positive for: Normal Inspection - Respiratory Exam Respiratory Exam: Clear to Auscultation Bilateral, NORMAL BREATHING PATTERN. absent: Decreased Breath Sounds, Rales, Rhonchi, Wheezes, Respiratory Distress - Cardiovascular Exam Cardiovascular Exam: Irregular Rhythm, +S1, +S2. absent: Gallop, Rubs, Systolic Murmur - GI/Abdominal Exam GI & Abdominal Exam: Normal Bowel Sounds, Soft. absent: Distended, Firm, Tenderness - Extremities Exam Extremities exam: Positive for: normal inspection. Negative for: calf tenderness, pedal edema - Back Exam Back exam: NORMAL INSPECTION - Neurological Exam Neurological exam: Alert, CN II-XII Intact, Oriented x3, Reflexes Normal - Expanded Neurological Exam Expanded Sensory exam: Lower Extremity 2 Point Discrimination: Normal, Lower Extremity Light Touch: Normal Neuro motor strength exam: Left Upper Extremity: 5, Right Upper Extremity: 5, Left Lower Extremity: 5, Right Lower Extremity: 5 - Psychiatric Exam Psychiatric exam: Normal Affect, Normal Mood - Skin Skin Exam: Dry Assessment and Plan - Assessment and Plan (Free Text) Assessment: 83-year-old Female with PMH Atrial Fibrillation, HTN, T2DM, peripheral neuropathy who presents to ED with bilateral leg weakness x2 days, admitted for URI; rule-out pneumonia Patient medically optimized for discharge. Patient now in TCU for rehabilitation. Patient currently being treated for URI. ID is consulted. Patient currently being treated with Rocephin (Day #5), Doxycycline. Upper Respiratory Infection, likely viral etiology - CURB65 score: 1, Unlikely Pneumonia - Rule-out PNA vs. COPD vs. GERD - CXR: no infiltrates, effusions, congestion - CTA head/neck: no acute findings - CT chest /: Fairly extensive centrilobular and panlobular emphysematous changes upper lobe predominance. the interstitial markings are also increased. [id number] passive/dependent type atelectasis seen both posterior lower lung ann left side greater and more confluent than the right. Multiple small to medium-seized mediastinal lymph nodes. (Please see report for details.) - Patient afebrile, no leukocytosis - Flu neg, strep neg - UA unremarkbale - UCx: no growth - BCx: no growth x48 hours - Throat Cx: no growth - Influenza a/b: negative - Antibiotics: Rocephin (currently day #5) and Doxycycline - Robitussin 10ml PO q4h PRN cough - Duonebs INH q4h PRN - ID consulted (Dr. Johnson); recommends: start tamiflu - Patient has decreased appetite; start ensure TID Paroxysmal Atrial Fibrillation - EKG on admission: A.fib with RVR @114bpm - Continue home eliquis 5mg PO BID CABG - Continue home ASA 81 PO daily HTN - Continue home lopressor 50mg PO BID - Continue home losartan 25mg PO daily T2DM - Med dose sliding scale - Hypoglycemia protocol - [facility] - 10/20: HgbA1C =5.9 Peripheral Neuropathy - Lower extremity weakness improving - No focal deficits on physical exam - Continue home lyrica 50mg PO BID - Fall precautions - PT/OT PPX: GI: pepcid 10mg PO daily DVT: SCDs HHD Patient seen and case discussed in detail with Dr. Jason Del Cid PGY1 <Tha Gomez - Last Filed: 10/27/18 16:43> Objective - Vital Signs/Intake and Output Vital Signs (last 24 hours): Temp Pulse Resp BP Pulse Ox 97.4 F L 86 18 128/72 95 10/26/18 16:00 10/27/18 11:00 10/26/18 16:00 10/27/18 11:00 10/26/18 16:00 Intake and Output: 10/27/18 10/27/18 06:59 18:59 Intake Total 420 Balance 420 - Medications Medications: Current Medications Acetaminophen (Tylenol 325mg Tab) 650 mg PO Q6H PRN; Protocol PRN Reason: Fever >100.4 F Albuterol/Ipratropium (Duoneb 3 Mg/0.5 Mg (3 Ml) Ud) 3 ml IH Q4H PRN; Protocol PRN Reason: Shortness of Breath Apixaban (Eliquis) 5 mg PO Q12 MAK; Protocol Last Admin: 10/27/18 11:02 Dose: 5 mg Aspirin (Ecotrin) 81 mg PO 0800 MAK; Protocol Last Admin: 10/27/18 08:56 Dose: 81 mg Dextrose (Dextrose 50% Inj) 0 ml IV STAT PRN; Protocol PRN Reason: Hypoglycemia Protocol Donepezil HCl (Aricept) 10 mg PO HS MAK; Protocol Last Admin: 10/26/18 21:03 Dose: 10 mg Famotidine (Pepcid) 10 mg PO 2200 MAK; Protocol Last Admin: 10/26/18 21:05 Dose: 10 mg Guaifenesin/Dextromethorphan (Robitussin Dm) 10 ml PO Q4H PRN; Protocol PRN Reason: Cough Dextrose (Dextrose 5% In Water 1000 Ml) 1,000 mls @ 0 mls/hr IV .Q0M PRN; Protocol PRN Reason: Hypoglycemia Protocol Insulin Human Lispro (Humalog Med) 0 units SC ACHS MAK; Protocol Last Admin: 10/27/18 12:40 Dose: 3 units Losartan Potassium (Cozaar) 25 mg PO DAILY MAK; Protocol Last Admin: 10/27/18 11:00 Dose: 25 mg Memantine (Namenda) 5 mg PO Q12 MAK; Protocol Last Admin: 10/27/18 11:04 Dose: 5 mg Metoprolol Tartrate (Lopressor) 50 mg PO 0800,1800 MAK; Protocol Last Admin: 10/27/18 08:57 Dose: 50 mg Mupirocin (Bactroban Ointment) 0 gm NS BID MAK Stop: 10/28/18 10:01 Last Admin: 10/27/18 10:55 Dose: 1 applic Pregabalin (Lyrica) 50 mg PO Q12 MAK; Protocol Last Admin: 10/27/18 11:04 Dose: 50 mg - Labs Labs: 10/24/18 06:30 10/24/18 06:30 Attending/Attestation - Attestation I have personally seen and examined this patient.: Yes I have fully participated in the care of the patient.: Yes I have reviewed all pertinent clinical information, including history, physical exam and plan: Yes Notes (Text): URI: c/w empiric abx as per ID recommendation Day 5/8 of rocephin A. fib c/w eliquis HTN: c/w home meds and adjust dose as needed PT on board. 10/27/18 16:40
--- NOTE | 2018-10-27 17:00 | CP.PCM.PN ---
Subjective - Date & Time of Evaluation Date of Evaluation: 10/27/18 Time of Evaluation: 10:35 - Subjective Subjective: Comfortable, no SOB, no cough, no nausea, no fevers. Objective - Vital Signs/Intake and Output Vital Signs (last 24 hours): Temp Pulse Resp BP Pulse Ox 97.4 F L 86 16 128/72 96 10/27/18 10:00 10/27/18 11:00 10/27/18 10:00 10/27/18 11:00 10/27/18 10:00 Intake and Output: 10/27/18 10/27/18 06:59 18:59 Intake Total 420 Balance 420 - Medications Medications: Current Medications Acetaminophen (Tylenol 325mg Tab) 650 mg PO Q6H PRN; Protocol PRN Reason: Fever >100.4 F Albuterol/Ipratropium (Duoneb 3 Mg/0.5 Mg (3 Ml) Ud) 3 ml IH Q4H PRN; Protocol PRN Reason: Shortness of Breath Apixaban (Eliquis) 5 mg PO Q12 MAK; Protocol Last Admin: 10/27/18 11:02 Dose: 5 mg Aspirin (Ecotrin) 81 mg PO 0800 MAK; Protocol Last Admin: 10/27/18 08:56 Dose: 81 mg Dextrose (Dextrose 50% Inj) 0 ml IV STAT PRN; Protocol PRN Reason: Hypoglycemia Protocol Donepezil HCl (Aricept) 10 mg PO HS MAK; Protocol Last Admin: 10/26/18 21:03 Dose: 10 mg Famotidine (Pepcid) 10 mg PO 2200 MAK; Protocol Last Admin: 10/26/18 21:05 Dose: 10 mg Guaifenesin/Dextromethorphan (Robitussin Dm) 10 ml PO Q4H PRN; Protocol PRN Reason: Cough Dextrose (Dextrose 5% In Water 1000 Ml) 1,000 mls @ 0 mls/hr IV .Q0M PRN; Protocol PRN Reason: Hypoglycemia Protocol Insulin Human Lispro (Humalog Med) 0 units SC ACHS MAK; Protocol Last Admin: 10/27/18 12:40 Dose: 3 units Losartan Potassium (Cozaar) 25 mg PO DAILY [facility]K; Protocol Last Admin: 10/27/18 11:00 Dose: 25 mg Memantine (Namenda) 5 mg PO Q12 MAK; Protocol Last Admin: 10/27/18 11:04 Dose: 5 mg Metoprolol Tartrate (Lopressor) 50 mg PO 0800,1800 [facility]; Protocol Last Admin: 10/27/18 08:57 Dose: 50 mg Mupirocin (Bactroban Ointment) 0 gm NS BID [facility] Stop: 10/28/18 10:01 Last Admin: 10/27/18 10:55 Dose: 1 applic Pregabalin (Lyrica) 50 mg PO Q12 MAK; Protocol Last Admin: 10/27/18 11:04 Dose: 50 mg - Labs Labs: 10/24/18 06:30 10/24/18 06:30 - Constitutional Appears: No Acute Distress, Chronically Ill - Head Exam Head Exam: NORMAL INSPECTION - Respiratory Exam Respiratory Exam: Decreased Breath Sounds - Cardiovascular Exam Cardiovascular Exam: +S1, +S2 - GI/Abdominal Exam GI & Abdominal Exam: Soft. absent: Tenderness Assessment and Plan - Assessment and Plan (Free Text) Plan: Assessment S/P treatment for community-acquired pneumonia and Influenza atrial fibrillation HTN DM peripheral neuropathy Plan completed Rocephin, Doxycycline and Tamiflu will continue to monitor clinically off antibiotics since she is at risk for nosocomial infections
[2018-10-28] MEDS: Insulin Lispro (humaLOG) MEDIUM Coverage SC SCH ×4 (07:34→23:00)
[2018-10-28] MEDS: Mupirocin 2% Ointment 15 GM TUBE NS SCH (10:01)
--- NOTE | 2018-10-28 23:29 | PN ---
DATE: 10/28/2018 SUBJECTIVE: The patient is in bed, in no acute distress, and nontoxic. PHYSICAL EXAMINATION VITAL SIGNS: Temperature is 97, blood pressure is 140/70, and respiratory rate of 18. HEENT: Unremarkable. NECK: Supple. LUNGS: Have decreased breath sounds. HEART: Normal S1, S2. ABDOMEN: Soft. LABORATORY EXAMINATION: Reveals a white count of 11,000. Chemistries are noted. Microbiology is reviewed. Review of orders reveals the patient to be on no antibiotics. ASSESSMENT AND PLAN: This is an 83-year-old female with community-acquired pneumonia as well as influenza, atrial fibrillation, diabetes mellitus, hypertension, and peripheral neuropathy, has completed the antibiotics. The patient also had 5 days of Tamiflu, currently off of antibiotics and afebrile. The patient is at risk for developing nosocomial infections. Case discussed with nursing staff earlier today. Duy Johnson MD
[2018-10-29] MEDS: Insulin Lispro (humaLOG) MEDIUM Coverage SC SCH ×4 (06:47→22:25)
--- NOTE | 2018-10-29 12:58 | PN ---
DATE: 10/29/2018 SUBJECTIVE: The patient is in bed in no acute distress, nontoxic. PHYSICAL EXAMINATION: VITAL SIGNS: Temperature is 97, blood pressure is 160/70, respiratory rate of 18. HEENT: Unremarkable. NECK: Supple. LUNGS: Have decreased breath sounds. HEART: Normal S1, S2. ABDOMEN: Soft, nontender. LABORATORY EXAMINATION: Reviewed. ASSESSMENT AND PLAN: This is an 86-year-old female with community-acquired pneumonia as well as influenza, atrial fibrillation, diabetes, hypertension, peripheral neuropathy, has completed the antibiotics and has complete 5 days of Tamiflu. Review of orders reveals the patient to be off of antibiotics and Tamiflu and the patient is at risk for developing nosocomial infections. We will follow with you. Duy Johnson MD
--- NOTE | 2018-10-29 22:48 | CP.PCM.PN ---
<Ozzie Funez - Last Filed: 10/29/18 22:44> Subjective - Date & Time of Evaluation Date of Evaluation: 10/29/18 Time of Evaluation: 12:00 - Subjective Subjective: Ozzie Funez,PGY1 Medicine Progress note for Dr. Thelma Johnson Patient was seen and evaluated at bedside this AM. Pt denies any acute events and the pt is denying any acute complaints at this time. Pt states she is able to walk with PT, and states she is feeling stronger. Patient denies chest pain, sob, dizziness, nausea, vomiting, headache, fatigue, fevers, chills, sore throat, runny nose, congestion, palpitations, or abd pain. Objective - Vital Signs/Intake and Output Vital Signs (last 24 hours): Temp Pulse Resp BP Pulse Ox 97.9 F 64 18 138/59 L 94 L 10/29/18 16:00 10/29/18 16:00 10/29/18 16:00 10/29/18 18:28 10/29/18 16:00 - Medications Medications: Current Medications Acetaminophen (Tylenol 325mg Tab) 650 mg PO Q6H PRN; Protocol PRN Reason: Fever >100.4 F Albuterol/Ipratropium (Duoneb 3 Mg/0.5 Mg (3 Ml) Ud) 3 ml IH Q4H PRN; Protocol PRN Reason: Shortness of Breath Apixaban (Eliquis) 5 mg PO Q12 MAK; Protocol Last Admin: 10/29/18 21:19 Dose: 5 mg Aspirin (Ecotrin) 81 mg PO 0800 MAK; Protocol Last Admin: 10/29/18 09:41 Dose: 81 mg Dextrose (Dextrose 50% Inj) 0 ml IV STAT PRN; Protocol PRN Reason: Hypoglycemia Protocol Donepezil HCl (Aricept) 10 mg PO HS MAK; Protocol Last Admin: 10/29/18 21:19 Dose: 10 mg Famotidine (Pepcid) 10 mg PO 2200 MAK; Protocol Last Admin: 10/29/18 21:20 Dose: 10 mg Guaifenesin/Dextromethorphan (Robitussin Dm) 10 ml PO Q4H PRN; Protocol PRN Reason: Cough Dextrose (Dextrose 5% In Water 1000 Ml) 1,000 mls @ 0 mls/hr IV .Q0M PRN; Protocol PRN Reason: Hypoglycemia Protocol Insulin Human Lispro (Humalog Med) 0 units SC ACHS MAK; Protocol Last Admin: 10/29/18 22:25 Dose: Not Given Losartan Potassium (Cozaar) 25 mg PO DAILY [facility]; Protocol Last Admin: 10/29/18 09:41 Dose: 25 mg Memantine (Namenda) 5 mg PO Q12 MAK; Protocol Last Admin: 10/29/18 21:19 Dose: 5 mg Metoprolol Tartrate (Lopressor) 50 mg PO 0800,1800 MAK; Protocol Last Admin: 10/29/18 18:28 Dose: 50 mg Pregabalin (Lyrica) 50 mg PO Q12 MAK; Protocol Last Admin: 10/29/18 21:19 Dose: 50 mg Sodium Chloride ([place] Nasal [place]) 0 ml NS PRN PRN PRN Reason: Nasal congestion - Labs Labs: 10/24/18 06:30 10/24/18 06:30 - Constitutional Appears: Non-toxic, No Acute Distress - Head Exam Head Exam: ATRAUMATIC, NORMAL INSPECTION, NORMOCEPHALIC - Eye Exam Eye Exam: EOMI, Normal appearance, PERRL - Respiratory Exam Respiratory Exam: Clear to Ausculation Bilateral, NORMAL BREATHING PATTERN - Cardiovascular Exam Cardiovascular Exam: RRR, +S1, +S2. absent: Gallop, Rubs, Murmur - GI/Abdominal Exam GI & Abdominal Exam: Soft, Normal Bowel Sounds. absent: Firm, Guarding, Rigid, Tenderness - Back Exam Back Exam: NORMAL INSPECTION. absent: CVA tenderness (L), CVA tenderness (R) - Neurological Exam Neurological Exam: Alert, Awake, Oriented x3 - Psychiatric Exam Psychiatric exam: Normal Affect, Normal Mood - Skin Skin Exam: Dry, Intact, Normal Color Assessment and Plan - Assessment and Plan (Free Text) Assessment: 83-year-old Female with PMH Atrial Fibrillation, HTN, T2DM, peripheral neuropathy who presents to ED with bilateral leg weakness x2 days, admitted for URI; rule-out pneumonia Patient medically optimized for discharge. Patient now in TCU for rehabilitation. Patient currently being treated for URI. ID is cons ulted. Pt is working with PT and will be d/dary tomorrow Plan: 1. Upper Respiratory Infection, likely viral etiology - CXR: no infiltrates, effusions, congestion - CTA head/neck: no acute findings - CT chest 10/22: Fairly extensive centrilobular and panlobular emphysematous changes upper lobe predominance. the interstitial markings are also increased. Ivd-it-Poxfthli passive/dependent type atelectasis seen both posterior lower lung ann left side greater and more confluent than the right. Multiple small to medium-seized mediastinal lymph nodes. - Patient afebrile, no leukocytosis - Flu neg, strep neg - UA unremarkbale - UCx: no growth - BCx: no growth x48 hours - Throat Cx: no growth - Robitussin 10ml PO q4h PRN cough - Duonebs INH q4h PRN Paroxysmal Atrial Fibrillation - EKG on admission: A.fib with RVR @114bpm - Continue home eliquis 5mg PO BID CABG - Continue home ASA 81 PO daily HTN - Continue home lopressor 50mg PO BID - Continue home losartan 25mg PO daily T2DM - Med dose sliding scale - Hypoglycemia protocol - Accuchecks ACHS - 10/20: HgbA1C =5.9 Peripheral Neuropathy - Lower extremity weakness improving - No focal deficits on physical exam - Continue home lyrica 50mg PO BID - Fall precautions - PT/OT PPX: GI: pepcid 10mg PO daily DVT: SCDs HHD Patient seen and case discussed in detail with Dr. Thelma Funez DO Internal Medicine Resident PGY-1 <Sheron Johnson R - Last Filed: 10/30/18 13:40> Objective - Vital Signs/Intake and Output Vital Signs (last 24 hours): Temp Pulse Resp BP Pulse Ox 97.9 F 64 18 151/65 H 94 L 10/29/18 16:00 10/30/18 08:21 10/29/18 16:00 10/30/18 10:11 10/29/18 16:00 - Medications Medications: Current Medications Acetaminophen (Tylenol 325mg Tab) 650 mg PO Q6H PRN; Protocol PRN Reason: Fever >100.4 F Albuterol/Ipratropium (Duoneb 3 Mg/0.5 Mg (3 Ml) Ud) 3 ml IH Q4H PRN; Protocol PRN Reason: Shortness of Breath Apixaban (Eliquis) 5 mg PO Q12 MAK; Protocol Last Admin: 10/30/18 12:10 Dose: 5 mg Aspirin (Ecotrin) 81 mg PO 0800 MAK; Protocol Last Admin: 10/30/18 12:10 Dose: 81 mg Dextrose (Dextrose 50% Inj) 0 ml IV STAT PRN; Protocol PRN Reason: Hypoglycemia Protocol Donepezil HCl (Aricept) 10 mg PO HS MAK; Protocol Last Admin: 10/29/18 21:19 Dose: 10 mg Famotidine (Pepcid) 10 mg PO 2200 MAK; Protocol Last Admin: 10/29/18 21:20 Dose: 10 mg Guaifenesin/Dextromethorphan (Robitussin Dm) 10 ml PO Q4H PRN; Protocol PRN Reason: Cough Dextrose (Dextrose 5% In Water 1000 Ml) 1,000 mls @ 0 mls/hr IV .Q0M PRN; Protocol PRN Reason: Hypoglycemia Protocol Insulin Human Lispro (Humalog Med) 0 units SC ACHS MAK; Protocol Last Admin: 10/30/18 12:02 Dose: 1 units Losartan Potassium (Cozaar) 25 mg PO DAILY MAK; Protocol Last Admin: 10/30/18 10:11 Dose: 25 mg Memantine (Namenda) 5 mg PO Q12 MAK; Protocol Last Admin: 10/30/18 10:10 Dose: 5 mg Metoprolol Tartrate (Lopressor) 50 mg PO 0800,1800 MAK; Protocol Last Admin: 10/30/18 08:21 Dose: 50 mg Pregabalin (Lyrica) 50 mg PO Q12 MAK; Protocol Last Admin: 10/30/18 10:15 Dose: 50 mg Sodium Chloride ([place] Nasal [place]) 0 ml NS PRN PRN PRN Reason: Nasal congestion - Labs Labs: 10/30/18 10:30 10/24/18 06:30 Attending/Attestation - Attestation I have personally seen and examined this patient.: Yes I have fully participated in the care of the patient.: Yes I have reviewed all pertinent clinical information, including history, physical exam and plan: Yes Notes (Text): Patient seen and examined by me with resident at 10:20AM on 10/29/18. Case including HPI, physical exam, and assessment and plan discussed with resident. Agree with above with following additions/corrections. Patient is an 83 year old female with past medical history significant for atrial fibrillation on Eliquis, HTN, DM2, CAD s/p CABG, and peripheral neuropath y presented to emergency room on 10/19/18 with bilateral leg weakness. Patient was treated for URI/?flu/pneumonia and discharged to TCU on 10/22/18 for debility and gait instability. Patient states she is feeling better. Patient states she feels like she is doing pretty well with physical therapy and is able to walk with her walker. Patient denies any chest pain or shortness of breath. No headaches or dizziness. No fevers or chills. No nausea, vomiting, or abdominal pain. No change in vision. N o dysuria. No diarrhea or constipation. Physical exam: General: Awake and alert lying in bed in no acute distress HEENT: Normocephalic, atraumatic. Extraocular muscles intact, pupils equal and reactive, no scleral icterus. Oropharynx is pink and moist. Neck is supple. Cardiovascular: Regular rhythm. Normal S1 and S2. No murmurs, rubs, or gallops appreciated Pulmonary: Normal respiratory effort. No rhonchi, rales, or wheezing appreciated. Gastrointestinal: Soft, nondistended. Nontender. Positive bowel sounds all 4 quadrants. No guarding. Musculoskeletal: Moves all extremities. No calf tenderness. No edema appreciated. Central nervous system: Awake and alert. CN 2-12 grossly intact Dermatologic: Skin warm and dry. Assessment and plan: Patient is an 83 year old female with past medical history significant for atrial fibrillation on Eliquis, HTN, DM2, CAD s/p CABG, and peripheral neuropathy presented to emergency room on 10/19/18 with bilateral leg weakness. Patient was treated for URI/?flu/pneumonia and discharged to TCU on 10/22/18 for debility and gait instability. 1. Debility. Gait instability. Improving. Continue physical therapy as tolerated. 2. URI. S/P treatment for influenza and pneumonia. Continue Robitussin as needed. ID following, recommendations appreciated. 3. Atrial fibrillation. Continue metoprolol and Eliquis. 4. CAD. No acute issues. No chest pain. Continue Cozaar, metoprolol, ASA, and Eliquis. 5. DM2. Continue insulin sliding scale. Continue to monitor accuchecks 6. Hypertension. Continue Cozaar and Metoprolol 7. Peripheral neuropathy. Continue Lyrica. 8. Dementia. Continue Namenda and Aricept Case was discussed in detail with the patient regarding current diagnosis and treatment plan. All questions answered.
[2018-10-30] MEDS: Insulin Lispro (humaLOG) MEDIUM Coverage SC SCH ×3 (06:30→17:14)
[2018-10-30 10:16] VITALS: BP 151/65
[2018-10-30 10:39] LABS: BASO # 0.03 K/mm3 (0.0-2.0); BASO % 0.5 % (0.0-3.0); EOS # 0.1 (0.0-0.7); EOS % 1.7 % (1.5-5.0); GRAN # 4.3 (1.4-6.5); GRAN % 65.9 % (50.0-68.0); HEMOGLOBIN 12.2 g/dL (12.0-16.0); LYMPH # 1.7 (1.2-3.4); LYMPH % 25.8 % (22.0-35.0); MEAN CELL VOLUME 90.7 fl (80.0-105.0); MEAN PLATELET VOLUME 10.2 fl (7.0-11.0); MONO # 0.4 (0.1-0.6); MONO % 6.1 % (1.0-6.0); RBC 4.2 10^6/uL (3.5-6.1); WHITE BLOOD COUNT 6.5 10^3/uL (4.5-11.0)
--- NOTE | 2018-10-30 12:15 | CP.PCM.PN ---
Subjective - Date & Time of Evaluation Date of Evaluation: 10/30/18 Time of Evaluation: 08:50 - Subjective Subjective: Afebrile, comfortable. Objective - Vital Signs/Intake and Output Vital Signs (last 24 hours): Temp Pulse Resp BP Pulse Ox 97.9 F 64 18 138/59 L 94 L 10/29/18 16:00 10/30/18 08:21 10/29/18 16:00 10/29/18 18:28 10/29/18 16:00 - Medications Medications: Current Medications Acetaminophen (Tylenol 325mg Tab) 650 mg PO Q6H PRN; Protocol PRN Reason: Fever >100.4 F Albuterol/Ipratropium (Duoneb 3 Mg/0.5 Mg (3 Ml) Ud) 3 ml IH Q4H PRN; Protocol PRN Reason: Shortness of Breath Apixaban (Eliquis) 5 mg PO Q12 MAK; Protocol Last Admin: 10/29/18 21:19 Dose: 5 mg Aspirin (Ecotrin) 81 mg PO 0800 MAK; Protocol Last Admin: 10/29/18 09:41 Dose: 81 mg Dextrose (Dextrose 50% Inj) 0 ml IV STAT PRN; Protocol PRN Reason: Hypoglycemia Protocol Donepezil HCl (Aricept) 10 mg PO HS MAK; Protocol Last Admin: 10/29/18 21:19 Dose: 10 mg Famotidine (Pepcid) 10 mg PO 2200 MAK; Protocol Last Admin: 10/29/18 21:20 Dose: 10 mg Guaifenesin/Dextromethorphan (Robitussin Dm) 10 ml PO Q4H PRN; Protocol PRN Reason: Cough Dextrose (Dextrose 5% In Water 1000 Ml) 1,000 mls @ 0 mls/hr IV .Q0M PRN; Protocol PRN Reason: Hypoglycemia Protocol Insulin Human Lispro (Humalog Med) 0 units SC ACHS MAK; Protocol Last Admin: 10/30/18 06:30 Dose: Not Given Losartan Potassium (Cozaar) 25 mg PO DAILY MAK; Protocol Last Admin: 10/29/18 09:41 Dose: 25 mg Memantine (Namenda) 5 mg PO Q12 MAK; Protocol Last Admin: 10/29/18 21:19 Dose: 5 mg Metoprolol Tartrate (Lopressor) 50 mg PO 0800,1800 MAK; Protocol Last Admin: 10/30/18 08:21 Dose: 50 mg Pregabalin (Lyrica) 50 mg PO Q12 MAK; Protocol Last Admin: 10/29/18 21:19 Dose: 50 mg Sodium Chloride ([place] Nasal [place]) 0 ml NS PRN PRN PRN Reason: Nasal congestion - Labs Labs: 10/24/18 06:30 10/24/18 06:30 - Constitutional Appears: Chronically Ill - Head Exam Head Exam: NORMAL INSPECTION - Respiratory Exam Respiratory Exam: Decreased Breath Sounds - Cardiovascular Exam Cardiovascular Exam: +S1, +S2 - GI/Abdominal Exam GI & Abdominal Exam: Soft. absent: Tenderness Assessment and Plan - Assessment and Plan (Free Text) Plan: Assessment S/P treatment for community-acquired pneumonia and Influenza atrial fibrillation HTN DM peripheral neuropathy Plan completed Rocephin, Doxycycline and Tamiflu will continue to monitor clinically off antibiotics since she is at risk for hospital-acquired infections
[2018-10-30 14:41] LABS: PH,URINE 5.5 (4.7-8.0); URINE BILIRUBIN SMALL (NEGATIVE); URINE BLOOD LARGE (NEGATIVE); URINE GLUCOSE (UA) 100 mg/dL (NEGATIVE); URINE LEUKOCYTE ESTERASE TRACE Leu/uL (NEGATIVE); URINE PROTEIN 100 mg/dL (<30 mg/dL); URINE UROBILINOGEN 0.2 E.U./dL (<1 E.U./dL)
[2018-10-30 14:42] LABS: URINE APPEARANCE CLOUDY (CLEAR); URINE COLOR LIGHT BROWN (YELLOW)
[2018-10-30 14:51] LABS: URINE BACTERIA MOD (NEG); URINE EPITHELIAL CELLS 0 - 2 /hpf (0-5); URINE RBC TNTC /hpf (0-2); URINE WBC 0 - 2 /hpf (0-6)
--- NOTE | 2018-10-30 16:55 | CP.PCM.DIS ---
<Tarun Del Cid - Last Filed: 10/30/18 18:39> Provider - Provider Date of Admission: 10/22/18 17:09 Attending physician: Sheron Johnson DO Primary care physician: NO PRIMARY CARE PROVIDER Consults: 10/22/18 17:43 Physician Consult Routine Comment: fever Consulting Provider: Duy Johnson Consulting Physician: Duy Johnson Reason for Consult: fever 10/22/18 17:44 Case Management Referral Routine Comment: Physician Instructions: Reason For Exam: please evaluate pt Reason for Referral: Carbon Lamp Cleaner Eval 10/22/18 17:45 Nursing Referral for Palliative Care Routine Comment: Physician Instructions: Reason For Exam: please evaluate pt Time Spent in preparation of Discharge (in minutes): 45 Diagnosis - Discharge Diagnosis (1) Upper respiratory infection Status: Acute Priority: Medium (2) Peripheral neuropathy Status: Chronic Priority: Medium (3) UTI (urinary tract infection) Status: Acute Priority: Medium Hospital Course - Lab Results Lab Results: Most Recent Lab Values WBC 6.5 10^3/uL (4.5-11.0) D 10/30/18 10:30 RBC 4.20 10^6/uL (3.5-6.1) 10/30/18 10:30 Hgb 12.2 g/dL (12.0-16.0) 10/30/18 10:30 Hct 38.1 % (36.0-48.0) 10/30/18 10:30 MCV 90.7 fl (80.0-105.0) 10/30/18 10:30 MCH 29.0 pg (25.0-35.0) 10/30/18 10:30 MCHC 32.0 g/dl (31.0-37.0) 10/30/18 10:30 RDW 13.0 % (11.5-14.5) 10/30/18 10:30 Plt Count 225 10^3/uL (120.0-450.0) 10/30/18 10:30 MPV 10.2 fl (7.0-11.0) 10/30/18 10:30 Gran % 65.9 % (50.0-68.0) 10/30/18 10:30 Lymph % (Auto) 25.8 % (22.0-35.0) 10/30/18 10:30 [place] % (Auto) 6.1 % (1.0-6.0) H 10/30/18 10:30 Eos % (Auto) 1.7 % (1.5-5.0) 10/30/18 10:30 Baso % (Auto) 0.5 % (0.0-3.0) 10/30/18 10:30 Gran # 4.30 (1.4-6.5) 10/30/18 10:30 Lymph # (Auto) 1.7 (1.2-3.4) 10/30/18 10:30 [place] # (Auto) 0.4 (0.1-0.6) 10/30/18 10:30 Eos # (Auto) 0.1 (0.0-0.7) 10/30/18 10:30 Baso # (Auto) 0.03 K/mm3 (0.0-2.0) 10/30/18 10:30 Sodium 137 mmol/L (132-148) 10/24/18 06:30 Potassium 3.9 mmol/L (3.6-5.0) 10/24/18 06:30 Chloride 102 mmol/L (98-107) 10/24/18 06:30 Carbon Dioxide 28 mmol/L (21-33) 10/24/18 06:30 Anion Gap 11 (10-20) 10/24/18 06:30 BUN 28 mg/dL (7-21) H 10/24/18 06:30 Creatinine 0.9 mg/dl (0.7-1.2) 10/24/18 06:30 Est GFR ( Amer) > 60 10/24/18 06:30 Est GFR (Non-Af Amer) 60 10/24/18 06:30 POC Glucose (mg/dL) 164 mg/dL (65-110) H 10/30/18 11:47 Random Glucose 157 mg/dL (70-110) H 10/24/18 06:30 Calcium 8.5 mg/dL (8.4-10.5) 10/24/18 06:30 Total Bilirubin 0.6 mg/dL (0.2-1.3) 10/24/18 06:30 AST 20 U/L (14-36) 10/24/18 06:30 ALT 18 U/L (7-56) 10/24/18 06:30 Alkaline Phosphatase 66 U/L (38-126) 10/24/18 06:30 Total Protein 6.9 g/dL (5.8-8.3) 10/24/18 06:30 Albumin 3.2 g/dL (3.0-4.8) 10/24/18 06:30 Globulin 3.7 gm/dL 10/24/18 06:30 Albumin/Globulin Ratio 0.9 (1.1-1.8) L 10/24/18 06:30 Urine Color Light brown (YELLOW) 10/30/18 14:20 Urine Appearance Cloudy (CLEAR) 10/30/18 14:20 Urine pH 5.5 (4.7-8.0) 10/30/18 14:20 Ur Specific [place] 1.020 (1.005-1.035) 10/30/18 14:20 Urine Protein 100 mg/dL (<30 mg/dL) H 10/30/18 14:20 Urine Glucose (UA) 100 mg/dL (NEGATIVE) H 10/30/18 14:20 Urine Ketones Negative mg/dL (NEGATIVE) 10/30/18 14:20 Urine Blood Large (NEGATIVE) H 10/30/18 14:20 Urine Nitrate Positive (NEGATIVE) H 10/30/18 14:20 Urine Bilirubin Small (NEGATIVE) H 10/30/18 14:20 Urine Urobilinogen 0.2 E.U./dL (<1 E.U./dL) 10/30/18 14:20 Ur Leukocyte Esterase Trace Maxim/uL (NEGATIVE) H 10/30/18 14:20 Urine RBC Tntc /hpf (0-2) 10/30/18 14:20 Urine WBC 0 - 2 /hpf (0-6) 10/30/18 14:20 Ur Epithelial Cells 0 - 2 /hpf (0-5) 10/30/18 14:20 Urine Bacteria Mod (NEG) 10/30/18 14:20 Urine Other Uyeast 10/30/18 14:20 - Hospital Course Hospital Course: PGY1 Discharge Summary and Hospital Course This is an 83-year-old Female with PMH Atrial Fibrillation, HTN, T2DM, peripheral neuropathy who presents to ED with bilateral leg weakness x2 days on 10/20. Please see chart for more detail. Patient was subsequently medically optimized for discharge, and was admitted to TCU on 10/23 for further rehabilitation. Please see reports and chart for details. Patient was being treated for URI with antibiotics and tamiflu. Patient was medically optimized and was receiving physical therapy daily to improve her lower extremity strength. Please see chart for details. Please note, on 10/30 (day of discharge) the Patient was noted to have hematuria. Patient denied any dysuria, back pain, fever, chills, and/or suprapubic pain. Patient's physical exam was unremarkable. Patient's vitals were hemodynamically stable for discharge to home. Patient had no leukocytosis. Patient is to follow-up with PMD within 3 days for a repeat urinalysis. Patient was medically and physically optimized for discharge to home. Patient agreed. All consultants agreed. Patient received detailed instructions both written and verbally in language to the level of the Patient's comprehension, and Patient both understands and agrees to discharge instructions. Please see chart for more details. Patient seen and case discussed in detail with Dr. Andreea Del Cid PGY1 Discharge Exam - Additional Findings Additional findings: - Constitutional Appears: Non-toxic, No Acute Distress - Head Exam Head Exam: ATRAUMATIC, NORMAL INSPECTION, NORMOCEPHALIC - Eye Exam Eye Exam: EOMI, Normal appearance, PERRL - Respiratory Exam Respiratory Exam: Clear to Ausculation Bilateral, NORMAL BREATHING PATTERN - Cardiovascular Exam Cardiovascular Exam: RRR, +S1, +S2. absent: Gallop, Rubs, Murmur - GI/Abdominal Exam GI & Abdominal Exam: Soft, Normal Bowel Sounds. absent: Firm, Guarding, Rigid, Tenderness - Back Exam Back Exam: NORMAL INSPECTION. absent: CVA tenderness (L), CVA tenderness (R) - Neurological Exam Neurological Exam: Alert, Awake, Oriented x3 - Psychiatric Exam Psychiatric exam: Normal Affect, Normal Mood - Skin Skin Exam: Dry, Intact, Normal Color Discharge Plan - Follow Up Plan Condition: GOOD Disposition: HOME/ ROUTINE Instructions: Coronary Heart Disease, Flu, Adult (DC), MRSA (DC), Sepsis, Adult (DC), Community-Acquired Pneumonia in Adults, Urinary Tract Infection in Women (DC), Urinary Tract Infection in Men (DC), Dysuria (GEN) Additional Instructions: Please follow up with your primary care doctor as scheduled for post hospitalization follow up and repeat urinalysis. Please stop taking Aspirin until your primary care doctor tells you to restart this medication after your urinalysis has been evaluated. Please resume your home medications as prescribed otherwise If your symptoms return, please seek emergency medical attention immediately. Referrals: PCP,NO [Primary Care Provider] - <JessikaBo storysaul - Last Filed: 10/31/18 09:24> Provider - Provider Date of Admission: 10/22/18 17:09 Attending physician: Sheron Johnson DO Primary care physician: [place] PRIMARY CARE PROVIDER Consults: 10/22/18 17:43 Physician Consult Routine Comment: fever Consulting Provider: Duy Johnson Consulting Physician: Duy Johnson Reason for Consult: fever 10/22/18 17:44 Case Management Referral Routine Comment: Physician Instructions: Reason For Exam: please evaluate pt Reason for Referral: Carbon Lamp Cleaner [place] 10/22/18 17:45 Nursing Referral for Palliative Care Routine Comment: Physician Instructions: Reason For Exam: please evaluate pt Hospital Course - Lab Results Lab Results: Most Recent Lab Values WBC 6.5 10^3/uL (4.5-11.0) D 10/30/18 10:30 RBC 4.20 10^6/uL (3.5-6.1) 10/30/18 10:30 Hgb 12.2 g/dL (12.0-16.0) 10/30/18 10:30 Hct 38.1 % (36.0-48.0) 10/30/18 10:30 MCV 90.7 fl (80.0-105.0) 10/30/18 10:30 MCH 29.0 pg (25.0-35.0) 10/30/18 10:30 MCHC 32.0 g/dl (31.0-37.0) 10/30/18 10:30 RDW 13.0 % (11.5-14.5) 10/30/18 10:30 Plt Count 225 10^3/uL (120.0-450.0) 10/30/18 10:30 MPV 10.2 fl (7.0-11.0) 10/30/18 10:30 Gran % 65.9 % (50.0-68.0) 10/30/18 10:30 Lymph % (Auto) 25.8 % (22.0-35.0) 10/30/18 10:30 [place] % (Auto) 6.1 % (1.0-6.0) H 10/30/18 10:30 Eos % (Auto) 1.7 % (1.5-5.0) 10/30/18 10:30 Baso % (Auto) 0.5 % (0.0-3.0) 10/30/18 10:30 Gran # 4.30 (1.4-6.5) 10/30/18 10:30 Lymph # (Auto) 1.7 (1.2-3.4) 10/30/18 10:30 [place] # (Auto) 0.4 (0.1-0.6) 10/30/18 10:30 Eos # (Auto) 0.1 (0.0-0.7) 10/30/18 10:30 Baso # (Auto) 0.03 K/mm3 (0.0-2.0) 10/30/18 10:30 Sodium 137 mmol/L (132-148) 10/24/18 06:30 Potassium 3.9 mmol/L (3.6-5.0) 10/24/18 06:30 Chloride 102 mmol/L (98-107) 10/24/18 06:30 Carbon Dioxide 28 mmol/L (21-33) 10/24/18 06:30 Anion Gap 11 (10-20) 10/24/18 06:30 BUN 28 mg/dL (7-21) H 10/24/18 06:30 Creatinine 0.9 mg/dl (0.7-1.2) 10/24/18 06:30 Est GFR ( Amer) > 60 10/24/18 06:30 Est GFR (Non-Af Amer) 60 10/24/18 06:30 POC Glucose (mg/dL) 159 mg/dL (65-110) H 10/30/18 16:36 Random Glucose 157 mg/dL (70-110) H 10/24/18 06:30 Calcium 8.5 mg/dL (8.4-10.5) 10/24/18 06:30 Total Bilirubin 0.6 mg/dL (0.2-1.3) 10/24/18 06:30 AST 20 U/L (14-36) 12/04/18 06:30 ALT 18 U/L (7-56) 10/24/18 06:30 Alkaline Phosphatase 66 U/L (38-126) 10/24/18 06:30 Total Protein 6.9 g/dL (5.8-8.3) 10/24/18 06:30 Albumin 3.2 g/dL (3.0-4.8) 10/24/18 06:30 Globulin 3.7 gm/dL 10/24/18 06:30 Albumin/Globulin Ratio 0.9 (1.1-1.8) L 10/24/18 06:30 Urine Color Light brown (YELLOW) 10/30/18 14:20 Urine Appearance Cloudy (CLEAR) 10/30/18 14:20 Urine pH 5.5 (4.7-8.0) 10/30/18 14:20 Ur Specific [place] 1.020 (1.005-1.035) 10/30/18 14:20 Urine Protein 100 mg/dL (<30 mg/dL) H 10/30/18 14:20 Urine Glucose (UA) 100 mg/dL (NEGATIVE) H 10/30/18 14:20 Urine Ketones Negative mg/dL (NEGATIVE) 10/30/18 14:20 Urine Blood Large (NEGATIVE) H 10/30/18 14:20 Urine Nitrate Positive (NEGATIVE) H 10/30/18 14:20 Urine Bilirubin Small (NEGATIVE) H 10/30/18 14:20 Urine Urobilinogen 0.2 E.U./dL (<1 E.U./dL) 10/30/18 14:20 Ur Leukocyte Esterase Trace Maxim/uL (NEGATIVE) H 10/30/18 14:20 Urine RBC Tntc /hpf (0-2) 10/30/18 14:20 Urine WBC 0 - 2 /hpf (0-6) 10/30/18 14:20 Ur Epithelial Cells 0 - 2 /hpf (0-5) 10/30/18 14:20 Urine Bacteria Mod (NEG) 10/30/18 14:20 Urine Other Uyeast 10/30/18 14:20 Attending/Attestation - Attestation I have personally seen and examined this patient.: Yes I have fully participated in the care of the patient.: Yes I have reviewed all pertinent clinical information, including history, physical exam and plan: Yes Notes (Text): 10/31/18 09:20 Attending note; Patient seen and examined with resident. Patient is alert and awake. Denies any fevers, chills. Denies any urinary complaints. Denies any nausea, vomiting. Patient is an 83 year old female with past medical history significant for atrial fibrillation on Eliquis, HTN, DM2, CAD s/p CABG, and peripheral neuropathy presented to emergency room on 10/19/18 with flu like symptoms and bilateral leg weakness. Patient was treated for URI/flu/pneumonia and discharged to TCU on 10/22/18 for debility and gait instability. 1. Gait instability. Improving. ambulating without difficulty. 2. URI. S/P treatment for influenza and pneumonia. Continue Robitussin as needed. ID following, recommendations appreciated. 3. Atrial fibrillation. Continue metoprolol and Eliquis. 4. CAD. No acute issues. No chest pain. Continue Cozaar, metoprolol, and Eliquis. 5. DM2. Continue insulin sliding scale. Continue to monitor accuchecks 6. Hypertension. Continue Cozaar and Metoprolol 7. Peripheral neuropathy. Continue Lyrica. 8. Dementia. Continue Namenda and Aricept 9. Microscopic hematuria. Currently denies any fevers, chills. No suprapubic pain. Patient recently completed IV Rocephin and doxycycline. Advised to follow-up UA in 3 days. Case discussed with PMD in detail. Continue Eliquis for now. Stop if any hematuria. Follow up with urology as outpatient. Aspirin on hold. Case was discussed in detail with the patient and patient's daughter regarding current diagnosis and treatment plan. All questions answered. Follow-up with PMD in 3 days. 10/31/18 09:24
[2018-10-30 17:04] VITALS: PULSE 68; RESP 14; TEMP 97.8; O2SAT 96
== END 2018-10-30 18:19 | disposition home or self-care (01) | DRG 871 ==
LOC: TRCU 17:09
PROVIDERS: ADMIT Internal Medicine; ATTEND Hospitalist
PROC: F07Z9FZ Gait Training/Functional Ambulation Treatment using Assistive, Adaptive, Supportive or Protective Equipment (ICD-10-PCS; principal; 2018-10-23)
PROC: F07M6ZZ Therapeutic Exercise Treatment of Musculoskeletal System - Whole Body (ICD-10-PCS; 2018-10-23)
PROC: F08Z1ZZ Dressing Techniques Treatment (ICD-10-PCS; 2018-10-23)
PROC: F08Z2ZZ Grooming/Personal Hygiene Treatment (ICD-10-PCS; 2018-10-23)
PROC: F08Z0ZZ Bathing/Showering Techniques Treatment (ICD-10-PCS; 2018-10-23)
PROC: F08Z4ZZ Home Management Treatment (ICD-10-PCS; 2018-10-23)
DX: A41.9 Sepsis, unspecified organism (principal); J18.9 Pneumonia, unspecified organism; J11.00 Influenza due to unidentified influenza virus with unspecified type of pneumonia; J98.11 Atelectasis; N39.0 Urinary tract infection, site not specified; E11.42 Type 2 diabetes mellitus with diabetic polyneuropathy; F03.90 Unspecified dementia, unspecified severity, without behavioral disturbance, psychotic disturbance, mood disturbance, and anxiety; I11.0 Hypertensive heart disease with heart failure; I25.10 Atherosclerotic heart disease of native coronary artery without angina pectoris; I48.0 Paroxysmal atrial fibrillation; I50.9 Heart failure, unspecified; J06.9 Acute upper respiratory infection, unspecified; K21.9 Gastro-esophageal reflux disease without esophagitis; M17.0 Bilateral primary osteoarthritis of knee; M19.042 Primary osteoarthritis, left hand; M19.041 Primary osteoarthritis, right hand; Z79.01 Long term (current) use of anticoagulants; Z79.4 Long term (current) use of insulin; Z79.82 Long term (current) use of aspirin; Z87.440 Personal history of urinary (tract) infections; Z87.891 Personal history of nicotine dependence; Z95.1 Presence of aortocoronary bypass graft; Z95.5 Presence of coronary angioplasty implant and graft

== ENCOUNTER 2019-01-02 18:27 | Inpatient (IN) | payer MEDICARE, OTHER ==
[2019-01-02 18:28] VITALS: BMI 34.9
[2019-01-02 19:18] LABS: BASO # 0.02 K/mm3 (0.0-2.0); BASO % 0.1 % (0.0-3.0); EOS % 0.1 % (1.5-5.0); HEMOGLOBIN 15.2 g/dL (12.0-16.0); LYMPH # 1.3 (1.2-3.4); LYMPH % 8.9 % (22.0-35.0); MEAN CELL VOLUME 88.5 fl (80.0-105.0); MEAN CORPUSCULAR HGB CONC 32.8 g/dl (31.0-37.0); MEAN PLATELET VOLUME 10.4 fl (7.0-11.0); MONO # 0.7 (0.1-0.6); MONO % 5.1 % (1.0-6.0); RBC 5.24 10^6/uL (3.5-6.1); RED CELL DISTRIBUTION WIDTH 14.7 % (11.5-14.5); WHITE BLOOD COUNT 14.4 10^3/uL (4.5-11.0)
[2019-01-02 19:23] LABS: VENOUS BLOOD GAS PO2 73 mm/Hg (30-55)
[2019-01-02] MEDS ORDERED: Piperacillin/Tazobact 3.375 gm 100 ML IVPB STA (19:26)
[2019-01-02 19:27] LABS: ALBUMIN 4.1 g/dL (3.0-4.8); ALT/SGPT 7 U/L (7-56); AST/SGOT 31 U/L (14-36); BLOOD UREA NITROGEN 18 mg/dL (7-21); CALCIUM 8.7 mg/dL (8.4-10.5); GFR NON-AFRICAN AMERICAN > 60
[2019-01-02] MEDS ORDERED: Sodium Chloride 0.9% 1,000 ML IV SCH (19:30)
--- NOTE | 2019-01-02 19:56 | ED PDOC ---
Arrival/HPI - General Historian: Family EM Caveat: Altered Mental Status - Critical Care Narrative Critical Care (Text): 01/02/19 19:55 83 year old female with PMH of hypertension, diabetes, CAD, Afib, dementia presents to the ED with lethargy and fever for one day. Patient is confused, AOA x1 and history is obtained by her daughter at bedside who stated the the patient was not answering her phone call earlier today. Patient was found lethargic and confused by the end of the day with a fever of 101 degree but she was fine the day before. Daughter reports that the patient is demented and living independently but she started to notice severe declining in her cognitive state. Patient was admitted to [facility] [place] on 09/2018 for PNA, UTI and was advised to see a urologist due to microscopic hematuria upon discharge. Patient was seen been urologist and started Bactrum yesterday. ROS is limited due to patient's mental status 01/02/19 19:56 01/02/19 20:07 - History of Present Illness Time/Duration: 24 hours Symptom Onset: Gradual Symptom Course: Worsening Severity Level: Moderate Context: Home <Cooper Valerio - Last Filed: 01/02/19 21:07> <Akash Hoffmann - Last Filed: 01/02/19 21:45> - General Chief Complaint: Altered Mental Status Time Seen by Provider: 01/02/19 18:50 Past Medical History - Infectious Disease Hx of Infectious Diseases: None - Reproductive Menopause: Yes - Cardiac Hx Cardiac Disorders: Yes (AFIB) Hx Hypertension: Yes - Pulmonary Hx Respiratory Disorders: Yes Hx Respiratory Tract Infection: Yes (Current 10/19/18.) - Neurological Hx Neurological Disorder: Yes (Peripheral Neuropathy) Hx Dizziness: Yes (Vertigo) - HEENT Hx HEENT Disorder: No (Denied by pt.) - Renal Hx Renal Disorder: No (Denied by pt.) - Endocrine/Metabolic Hx Diabetes Mellitus Type 2: Yes - Hematological/Oncological Hx Blood Disorders: No (Denied by pt.) - Integumentary Hx Dermatological Disorder: No (Denied by pt.) - Musculoskeletal/Rheumatological Hx Arthritis: Yes (knees; hands) - Gastrointestinal Hx Gastrointestinal Disorders: Yes Hx Diverticulitis: Yes (Hx of diverticulosis) Hx Gastroesophageal Reflux: Yes - Genitourinary/Gynecological Hx Genitourinary Disorders: Yes Hx Incontinence: Yes Hx Urinary Tract Infection: Yes - Psychiatric Hx Psychophysiologic Disorder: Yes Hx Anxiety: Yes Hx Depression: Yes Hx Substance Use: No - Surgical History Hx Cardiac Catheterization: Yes (Stent x 1) Hx Coronary Stent: Yes Hx Open Heart Surgery: Yes - Anesthesia Hx Anesthesia Reactions: No Hx Malignant Hyperthermia: No - Suicidal Assessment Feels Threatened In Home Enviroment: No <Cooper Valerio - Last Filed: 01/02/19 21:07> Family/Social History Family/Social History: Unknown Family HX Smoking Status: Never Smoked Hx Alcohol Use: No Hx Substance Use: No Hx Substance Use Treatment: No <Cooper Valerio - Last Filed: 01/02/19 21:07> Family/Social History: No Known Family HX <Akash Hoffmann - Last Filed: 01/02/19 21:45> Allergies/Home Meds <Cooper Valerio - Last Filed: 01/02/19 21:07> <Akash Hoffmann - Last Filed: 01/02/19 21:45> Allergies/Adverse Reactions: Allergies No Known Allergies Allergy (Verified 10/22/18 17:15) Home Medications: Home Meds Medication Instructions Recorded Confirmed RX: Sitagliptin Phosphate [Januvia] 100 mg PO DAILY 08/22/13 01/02/19 RX: Aspirin [Lo-Dose Aspirin EC] 81 mg PO DAILY 04/14/17 01/02/19 RX: Glimepiride [Amaryl] 1 mg PO BID 04/14/17 01/02/19 RX: Metoprolol Tartrate [Lopressor] 50 mg PO BID 04/14/17 01/02/19 RX: Apixaban [Eliquis] 5 mg PO BID 05/05/17 01/02/19 RX: Pregabalin [Lyrica] 50 mg PO BID 02/24/18 01/02/19 RX: Donepezil [Aricept] 10 mg PO HS 10/19/18 01/02/19 RX: Losartan [Cozaar] 25 mg PO DAILY 10/19/18 01/02/19 RX: Memantine [Namenda] 10 mg PO BID 10/19/18 01/02/19 Physical Exam - Physical Exam Physical Exam Limitations: Altered Mental Status Vital Signs Reviewed: Yes Vital Signs Temp Pulse Resp BP Pulse Ox 01/02/19 18:41 101.3 F H 97 H 18 134/72 94 L Temperature: Febrile Blood Pressure: Normal Pulse: Regular Respiratory Rate: Normal Appearance: Positive for: Well-Appearing Pain Distress: None Mental Status: Positive for: Confused, Lethargic - Systems Exam Head: Present: Atraumatic, Normocephalic Pupils: Present: PERRL Extroacular Muscles: Present: EOMI Conjunctiva: Present: Normal Ears: Present: Normal Mouth: Present: Dry Nose (Internal): Present: Normal Inspection Neck: Present: Normal Range of Motion. No: JVD, Lymphadenopathy Respiratory/Chest: Present: Clear to Auscultation, Good Air Exchange. No: Wheezes, Rales, Rhonchi Cardiovascular: Present: Normal S1, S2, Irregular Rhythm, Peripheal Pulses Present. No: Rub, Gallop Abdomen: No: Tenderness, Distention, Rebound, Guarding Back: Present: Normal Inspection Upper Extremity: Present: Normal Inspection. No: Cyanosis, Edema Lower Extremity: Present: Normal Inspection, NORMAL PULSES. No: Cyanosis, Swelling, Erythema Neurological: Present: Other (eye closed. responds to verbal stiulation. ) Skin: Present: Dry, Erythematous (right face) Psychiatric: Present: Other (AOA x1. poor insight. confused. ) <Cooper Valerio - Last Filed: 01/02/19 21:07> Vital Signs Temp Pulse Resp BP Pulse Ox 01/02/19 20:43 82 20 133/71 96 01/02/19 18:41 101.3 F H 97 H 18 134/72 94 L <Akash Hoffmann - Last Filed: 01/02/19 21:45> Medical Decision Making ED Course and Treatment: 01/02/19 20:28 -CBC, CMP -EKG -CXR -Patient met SIRS criteria. Code sepsis was called -IVF, IV abx started -Abdomen/Pelvis CT w/o contrast ordered -blood and urine cx ordered 01/02/19 20:57 -Case discussed with attending physician Dr Turner and manager of medical, agreed to accept the patient - Lab Interpretations Lab Results: pO2 73 mm/Hg (30-55) H 01/02/19 19:20 VBG pH 7.40 (7.32-7.43) 01/02/19 19:20 VBG pCO2 40.0 (40-60) 01/02/19 19:20 VBG HCO3 24.8 mmol/l (21-28) 01/02/19 19:20 VBG Total CO2 26.0 mmol.L (22-28) 01/02/19 19:20 VBG O2 Sat (Calc) 97.4 % (40-65) H 01/02/19 19:20 VBG Base Excess 0.0 mmol/L (0.0-2.0) 01/02/19 19:20 VBG Potassium 4.7 mmol/L (3.6-5.2) 01/02/19 19:20 Sodium 133.0 mmol/L (132-148) 01/02/19 19:20 Chloride 101.0 mmol/L (98-107) 01/02/19 19:20 Glucose 219 mg/dl (65-105) H 01/02/19 19:20 Lactate 2.0 mmol/L (0.7-2.1) 01/02/19 19:20 FiO2 21.0 % 01/02/19 19:20 Total Bilirubin 1.1 mg/dL (0.2-1.3) 01/02/19 19:00 AST 31 U/L (14-36) 01/02/19 19:00 ALT 7 U/L (7-56) 01/02/19 19:00 Alkaline Phosphatase 62 U/L (38-126) 01/02/19 19:00 Total Protein 8.0 g/dL (5.8-8.3) 01/02/19 19:00 Albumin 4.1 g/dL (3.0-4.8) 01/02/19 19:00 Globulin 4.0 gm/dL 01/02/19 19:00 Albumin/Globulin Ratio 1.0 (1.1-1.8) L 01/02/19 19:00 - Medication Orders Current Medication Orders: Sodium Chloride (Sodium Chloride 0.9%) 1,000 mls @ 150 mls/hr IV [facility] Last Admin: 01/02/19 19:38 Dose: 150 mls/hr eMAR Start Stop Document 01/02/19 19:38 SS (Rec: 01/02/19 19:38 SS [id number]) Intravenous Solution Start Date 01/02/19 Start Time 19:38 Piperacillin Sod/Tazobactam Sod (Zosyn 3.375 In Ns 100ml) 100 mls @ 200 mls/hr IVPB STAT STA; Protocol Stop: 01/02/19 19:55 Last Admin: 01/02/19 19:38 Dose: 200 mls/hr eMAR Start Stop Document 01/02/19 19:38 SS (Rec: 01/02/19 19:38 SS [id number]) Intravenous Solution Start Date 01/02/19 Start Time 19:38 End Date 01/02/19 End time 20:08 Total Infusion Time 30 <Cooper Valerio - Last Filed: 01/02/19 21:07> ED Course and Treatment: 01/02/19 21:44 patient was seen for fever, leukocytosis with known uti, code sepsis w as called and patient started on empiric abx. zosyn and vanco chosen as the patient has a hx of mrsa and psuedomonal coverage. Ct done to rule out obstructive uropathy. there was no hypotension or severely elevated lactic acid level that would warrant IVF bolus. - Lab Interpretations Lab Results: pO2 73 mm/Hg (30-55) H 01/02/19 19:20 VBG pH 7.40 (7.32-7.43) 01/02/19 19:20 VBG pCO2 40.0 (40-60) 01/02/19 19:20 VBG HCO3 24.8 mmol/l (21-28) 01/02/19 19:20 VBG Total CO2 26.0 mmol.L (22-28) 01/02/19 19:20 VBG O2 Sat (Calc) 97.4 % (40-65) H 01/02/19 19:20 VBG Base Excess 0.0 mmol/L (0.0-2.0) 01/02/19 19:20 VBG Potassium 4.7 mmol/L (3.6-5.2) 01/02/19 19:20 Sodium 133.0 mmol/L (132-148) 01/02/19 19:20 Chloride 101.0 mmol/L (98-107) 01/02/19 19:20 Glucose 219 mg/dl (65-105) H 01/02/19 19:20 Lactate 2.0 mmol/L (0.7-2.1) 01/02/19 19:20 FiO2 21.0 % 01/02/19 19:20 Total Bilirubin 1.1 mg/dL (0.2-1.3) 01/02/19 19:00 AST 31 U/L (14-36) 01/02/19 19:00 ALT 7 U/L (7-56) 01/02/19 19:00 Alkaline Phosphatase 62 U/L (38-126) 01/02/19 19:00 Total Protein 8.0 g/dL (5.8-8.3) 01/02/19 19:00 Albumin 4.1 g/dL (3.0-4.8) 01/02/19 19:00 Globulin 4.0 gm/dL 01/02/19 19:00 Albumin/Globulin Ratio 1.0 (1.1-1.8) L 01/02/19 19:00 - RAD Interpretation Narrative RAD Interpretations (Text): 01/02/19 21:25 cxr my read: no focal infiltrate, no ptx, cardiomegaly Radiology Orders: 01/02/19 20:02 CHEST PORTABLE [RAD] Stat 01/02/19 20:03 ABDOMEN & PELVIS [ABD & PELVIS W/O PO OR IV CONT] [CT] Stat - Medication Orders Current Medication Orders: Sodium Chloride (Sodium Chloride 0.9%) 1,000 mls @ 150 mls/hr IV .Q6H40M [facility] Last Admin: 01/02/19 19:38 Dose: 150 mls/hr eMAR Start Stop Document 01/02/19 19:38 SS (Rec: 01/02/19 19:38 SS [id number]) Intravenous Solution Start Date 01/02/19 Start Time 19:38 Vancomycin HCl 1.5 gm/ Sodium (Chloride) 500 mls @ 167 mls/hr IVPB ONCE ONE Stop: 01/02/19 23:14 Last Admin: 01/02/19 20:56 Dose: 167 mls/hr eMAR Start Stop Document 01/02/19 20:56 SS (Rec: 01/02/19 20:56 SS [id number]) Intravenous Solution Start Date 01/02/19 Start Time 20:56 Discontinued Medications Piperacillin Sod/Tazobactam Sod (Zosyn 3.375 In Ns 100ml) 100 mls @ 200 mls/hr IVPB STAT STA; Protocol Stop: 01/02/19 19:55 Last Admin: 01/02/19 19:38 Dose: 200 mls/hr eMAR Start Stop Document 01/02/19 19:38 SS (Rec: 01/02/19 19:38 SS [id number]) Intravenous Solution Start Date 01/02/19 Start Time 19:38 End Date 01/02/19 End time 20:08 Total Infusion Time 30 <Akash Hoffmann - Last Filed: 01/02/19 21:45> Disposition/Present on Arrival - Present on Arrival Any Indicators Present on Arrival: No History of DVT/PE: No History of Uncontrolled Diabetes: No Urinary Catheter: No History of Decub. Ulcer: No History Surgical Site Infection Following: None - Disposition Have Diagnosis and Disposition been Completed?: Yes Disposition Time: 20:32 <Cooper Valerio - Last Filed: 01/02/19 21:07> - Disposition Patient Plan: Admission <Akash Hoffmann - Last Filed: 01/02/19 21:45> - Disposition Diagnosis: Sepsis, UTI (urinary tract infection), Atrial fibrillation, Peripheral neuropathy Disposition: HOSPITALIZED Patient Problems: Current Active Problems Problem Status Onset Sepsis Acute UTI (urinary tract infection) Acute Atrial fibrillation Chronic Peripheral neuropathy Chronic Dementia Resolved Condition: GUARDED
[2019-01-02] MEDS ORDERED: Vancomycin 500 mg Inj IVPB STA (20:04)
[2019-01-02] MEDS ORDERED: Vancomycin 1.5 GM in Sodium Chloride 0.9% 500 ML IVPB ONE (20:15)
[2019-01-02 20:40] LABS: PH,URINE 6.5 (4.7-8.0); URINE BILIRUBIN NEGATIVE (NEGATIVE); URINE BLOOD TRACE-INTACT (NEGATIVE); URINE GLUCOSE (UA) NEGATIVE (NEGATIVE); URINE LEUKOCYTE ESTERASE SMALL Leu/uL (NEGATIVE); URINE PROTEIN TRACE mg/dL (<30 mg/dL); URINE UROBILINOGEN 0.2 E.U./dL (<1 E.U./dL)
--- NOTE | 2019-01-02 21:14 | CP.PCM.HP ---
<Jocelyne Rock - Last Filed: 01/03/19 00:29> History of Present Illness - History of Present Illness History of Present Illness: Resident History & Physical for Hospitalist Service Patient is an 83 year old female with past medical history of afib on eliquis, HTN, CAD, T2DM, dementia, peripheral neuropathy who was brought to ED by daughter for lethargy and fever of 101 F for one day. Patient is a poor historian and is unable to recall why she was brought here. Patient was admitted for management of sepsis due to UTI and pneumonia one month prior. She recently followed up with a urologist for microscopic hematuria and was started on Bactrim. Presently she offers no symptomatic complaints. Denies chills, headache, dizziness, nausea, vomiting, chest pain, shortness of breath, abdominal pain, diarrhea, constipation, dysuria. PMH: afib on eliquis, HTN, CAD,T2DM, dementia, peripheral neuropathy PSH: CABG SHx: former smoker, denies alcohol or illicit drug use FHx: denies Allergies: NKDA PMD: Dr. Nieves Present on Admission - Present on Admission Any Indicators Present on Admission: No Review of Systems - Review of Systems All systems: reviewed and no additional remarkable complaints except (as stated in HPI) Past Patient History - Infectious Disease Hx of Infectious Diseases: None - Past Social History Smoking Status: Never Smoked - CARDIAC Hx Cardiac Disorders: Yes (AFIB) Hx Hypertension: Yes - PULMONARY Hx Respiratory Disorders: Yes Hx Respiratory Tract Infection: Yes (Current 10/19/18.) - NEUROLOGICAL Hx Neurological Disorder: Yes (Peripheral Neuropathy) Hx Dizziness: Yes (Vertigo) - HEENT Hx HEENT Problems: No (Denied by pt.) - RENAL Hx Chronic Kidney Disease: No (Denied by pt.) - ENDOCRINE/METABOLIC Hx Diabetes Mellitus Type 2: Yes - HEMATOLOGICAL/ONCOLOGICAL Hx Blood Disorders: No (Denied by pt.) - INTEGUMENTARY Hx Dermatological Problems: No (Denied by pt.) - MUSCULOSKELETAL/RHEUMATOLOGICAL Hx Arthritis: Yes (knees; hands) - GASTROINTESTINAL Hx Gastrointestinal Disorders: Yes Hx Diverticulitis: Yes (Hx of diverticulosis) Hx Gastroesophageal Reflux: Yes - GENITOURINARY/GYNECOLOGICAL Hx Genitourinary Disorders: Yes Hx Incontinence: Yes Hx Urinary Tract Infection: Yes - PSYCHIATRIC Hx Psychophysiologic Disorder: Yes Hx Anxiety: Yes Hx Depression: Yes Hx Substance Use: No - SURGICAL HISTORY Hx Cardiac Catheterization: Yes (Stent x 1) Hx Coronary Stent: Yes Hx Open Heart Surgery: Yes - ANESTHESIA Hx Anesthesia Reactions: No Hx Malignant Hyperthermia: No Meds Allergies/Adverse Reactions: Allergies Allergy/AdvReac Type Severity Reaction Status Date / Time No Known Allergies Allergy Verified 10/22/18 17:15 Physical Exam - Additional Findings Additional findings: - Constitutional Appears: Well, No Acute Distress - Head Exam Head Exam: ATRAUMATIC, NORMOCEPHALIC - Eye Exam Eye Exam: EOMI, Normal appearance, PERRL - ENT Exam ENT Exam: Mucous Membranes Moist - Neck Exam Neck exam: Positive for: Normal Inspection - Respiratory Exam Respiratory Exam: Clear to Auscultation Bilateral, NORMAL BREATHING PATTERN. absent: Decreased Breath Sounds, Rales, Rhonchi, Wheezes - Cardiovascular Exam Cardiovascular Exam: Irregular Rhythm, +S1, +S2. absent: Gallop, Rubs, Systolic Murmur, JVD - GI/Abdominal Exam GI & Abdominal Exam: Normal Bowel Sounds, Soft. absent: Distended, Firm, Tenderness, Rebound - Extremities Exam Extremities exam: Positive for: normal inspection. Negative for: calf tenderness, pedal edema - Neurological Exam Neurological exam: Alert, CN II-XII Intact. absent: Oriented x3 - Psychiatric Exam Psychiatric exam: Normal Affect, Normal Mood - Skin Skin Exam: Dry, Warm Results - Vital Signs Recent Vital Signs: Last Vital Signs Temp 101.3 F H 01/02/19 18:41 Pulse 82 01/02/19 20:43 Resp 20 01/02/19 20:43 BP 133/71 01/02/19 20:43 Pulse Ox 96 01/02/19 20:43 - Labs Result Diagrams: 01/02/19 19:00 01/02/19 19:00 Labs: Laboratory Results - last 24 hr 01/02/19 01/02/19 01/02/19 19:00 19:00 19:20 WBC 14.4 H D RBC 5.24 Hgb 15.2 D Hct 46.4 MCV 88.5 MCH 29.0 MCHC 32.8 RDW 14.7 H Plt Count 183 MPV 10.4 Neut % (Auto) 85.8 H Lymph % (Auto) 8.9 L [place] % (Auto) 5.1 Eos % (Auto) 0.1 L Baso % (Auto) 0.1 Lymph # (Auto) 1.3 [place] # (Auto) 0.7 H Eos # (Auto) 0.0 Baso # (Auto) 0.02 Absolute Neuts (auto) 12.39 H pO2 73 H VBG pH 7.40 VBG pCO2 40.0 VBG HCO3 24.8 VBG Total CO2 26.0 VBG O2 Sat (Calc) 97.4 H VBG Base Excess 0.0 VBG Potassium 4.7 Glucose 219 H Lactate 2.0 FiO2 21.0 Sodium 135 133.0 Potassium 5.0 Chloride 101 101.0 Carbon Dioxide 24 Anion Gap 14 BUN 18 Creatinine 0.8 Est GFR ( Amer) > 60 Est GFR (Non-Af Amer) > 60 Random Glucose 212 H Calcium 8.7 Total Bilirubin 1.1 AST 31 ALT 7 Alkaline Phosphatase 62 Total Protein 8.0 Albumin 4.1 Globulin 4.0 Albumin/Globulin Ratio 1.0 L Venous Blood Potassium 4.7 Assessment & Plan - Assessment and Plan (Free Text) Assessment: Patient is an 83 year old female with past medical history of afib on eliquis, HTN, CAD, T2DM, dementia, peripheral neuropathy who was brought to ED by daughter for lethargy and fever of 101 F for one day, admitted for management of sepsis secondary to UTI. Plan: Sepsis - code sepsis called in ED - SIRS positive: temp 101.3, HR 97, WBC 14.4 - UA shows positive nitrates, small leuk esterase, 5-10 WBCs - 1.5 grams vancomycin and 3.375 grams Zosyn given - Zosyn 3.375 gm IV Q8H - Tylenol PRN for fever - NS @ 75 ccs/hr - CXR - blood and urine cultures - CT abd/pelvis Atrial fibrillation - continue home eliquis HTN - continue home Cozaar, Lopressor T2DM - ISS, Accuchecks - hold home meds Dementia - continue home Aricept, Memantine PPX - eliquis Case discussed with Dr. Yue Rock PGY-1 - Date & Time Date: 01/02/19 Time: 00:20 <Pedro Turner - Last Filed: 01/03/19 06:34> Results - Vital Signs Recent Vital Signs: Last Vital Signs Temp 98.8 F 01/03/19 00:22 Pulse 77 01/03/19 06:01 Resp 17 01/03/19 06:01 BP 136/66 01/03/19 06:01 Pulse Ox 98 01/03/19 06:01 - Labs Result Diagrams: 01/02/19 19:00 01/02/19 19:00 Labs: Laboratory Results - last 24 hr 01/02/19 01/02/19 01/02/19 19:00 19:00 19:20 WBC 14.4 H D RBC 5.24 Hgb 15.2 D Hct 46.4 MCV 88.5 MCH 29.0 MCHC 32.8 RDW 14.7 H Plt Count 183 MPV 10.4 Neut % (Auto) 85.8 H Lymph % (Auto) 8.9 L [place] % (Auto) 5.1 Eos % (Auto) 0.1 L Baso % (Auto) 0.1 Lymph # (Auto) 1.3 [place] # (Auto) 0.7 H Eos # (Auto) 0.0 Baso # (Auto) 0.02 Absolute Neuts (auto) 12.39 H pO2 73 H VBG pH 7.40 VBG pCO2 40.0 VBG HCO3 24.8 VBG Total CO2 26.0 VBG O2 Sat (Calc) 97.4 H VBG Base Excess 0.0 VBG Potassium 4.7 Glucose 219 H Lactate 2.0 FiO2 21.0 Sodium 135 133.0 Potassium 5.0 Chloride 101 101.0 Carbon Dioxide 24 Anion Gap 14 BUN 18 Creatinine 0.8 Est GFR ( Amer) > 60 Est GFR (Non-Af Amer) > 60 Random Glucose 212 H Calcium 8.7 Total Bilirubin 1.1 AST 31 ALT 7 Alkaline Phosphatase 62 Total Protein 8.0 Albumin 4.1 Globulin 4.0 Albumin/Globulin Ratio 1.0 L Venous Blood Potassium 4.7 Urine Color Urine Appearance Urine pH Ur Specific Terry Urine Protein Urine Glucose (UA) Urine Ketones Urine Blood Urine Nitrate Urine Bilirubin Urine Urobilinogen Ur Leukocyte Esterase Urine RBC Urine WBC Ur Epithelial Cells 01/02/19 01/02/19 20:20 23:01 WBC RBC Hgb Hct MCV MCH MCHC RDW Plt Count MPV Neut % (Auto) Lymph % (Auto) [place] % (Auto) Eos % (Auto) Baso % (Auto) Lymph # (Auto) [place] # (Auto) Eos # (Auto) Baso # (Auto) Absolute Neuts (auto) pO2 86 H VBG pH 7.31 L VBG pCO2 54.0 VBG HCO3 27.2 VBG Total CO2 28.9 H VBG O2 Sat (Calc) 98.5 H VBG Base Excess 0.0 VBG Potassium 4.5 Glucose 152 H Lactate 1.4 FiO2 21.0 Sodium 136.0 Potassium Chloride 105.0 Carbon Dioxide Anion Gap BUN Creatinine Est GFR ( Amer) Est GFR (Non-Af Amer) Random Glucose Calcium Total Bilirubin AST ALT Alkaline Phosphatase Total Protein Albumin Globulin Albumin/Globulin Ratio Venous Blood Potassium 4.5 Urine Color Yellow Urine Appearance Clear Urine pH 6.5 Ur Specific Terry 1.015 Urine Protein Trace H Urine Glucose (UA) Negative Urine Ketones Negative Urine Blood Trace-intact H Urine Nitrate Positive H Urine Bilirubin Negative Urine Urobilinogen 0.2 Ur Leukocyte Esterase Small H Urine RBC 5 - 10 H Urine WBC 5 - 10 H Ur Epithelial Cells Many H Attending/Attestation - Attestation I have personally seen and examined this patient.: Yes I have fully participated in the care of the patient.: Yes I have reviewed all pertinent clinical information: Yes
[2019-01-02 21:22] LABS: URINE APPEARANCE CLEAR (CLEAR); URINE COLOR YELLOW (YELLOW); URINE EPITHELIAL CELLS MANY /hpf (0-5)
[2019-01-02] MEDS ORDERED: Dextrose 50% SYRINGE Inj (50 ml) IV PRN (22:17)
--- NOTE | 2019-01-02 22:24 | PCM.SEPTIC ---
<ShwetaJocelyne Laurent - Last Filed: 01/02/19 22:24> Sepsis Progress Note - Reassessment Type Date of Evaluation: 01/02/19 Time of Evaluation: 22:22 Reassessment Type: Non-invasive reassessment - Non Invasive Reassessment Were the most recent vital sign reviewed: Yes Vital Sign (Latest): Temp Pulse Resp BP Pulse Ox 101.3 F H 82 20 133/71 96 01/02/19 18:41 01/02/19 20:43 01/02/19 20:43 01/02/19 20:43 01/02/19 20:43 Cardiovascular: Yes: Irregularly Irregular. No: JVD, Murmur, Tachycardia Respiratory: Yes: Normal Breath Sounds. No: Accessory Muscle Use, Crackles, Rales, Rhonchi, Respiratory Distress Capillary Refill: Normal (Less than 2 sec) Skin: Normal Color, Warm, Dry <Pedro Turner - Last Filed: 01/03/19 06:34> Sepsis Progress Note - Non Invasive Reassessment Vital Sign (Latest): Temp Pulse Resp BP Pulse Ox 98.8 F 77 17 136/66 98 01/03/19 00:22 01/03/19 06:01 01/03/19 06:01 01/03/19 06:01 01/03/19 06:01 Attending/Attestation - Attestation I have personally seen and examined this patient.: Yes I have fully participated in the care of the patient.: Yes I have reviewed all pertinent clinical information, including history, physical exam and plan: Yes
[2019-01-02] MEDS: Sodium Chloride 0.9% 1,000 ML IV SCH (22:58)
[2019-01-02 23:04] LABS: VENOUS BLOOD GAS PO2 86 mm/Hg (30-55); VENOUS BLOOD PH 7.31 (7.32-7.43)
[2019-01-02] MEDS: Piperacillin/Tazobact 3.375 gm 100 ML IVPB SCH (23:22)
[2019-01-03] MEDS: Piperacillin/Tazobact 3.375 gm 100 ML IVPB SCH ×3 (06:30→21:56)
[2019-01-03] MEDS: Insulin Reg-HIGH-Coverage SC SCH ×4 (07:32→22:48)
[2019-01-03 07:47] LABS: BASO # 0.01 K/mm3 (0.0-2.0); BASO % 0.1 % (0.0-3.0); EOS # 0.2 (0.0-0.7); EOS % 2.4 % (1.5-5.0); HEMOGLOBIN 12.9 g/dL (12.0-16.0); LYMPH # 1.3 (1.2-3.4); LYMPH % 15.6 % (22.0-35.0); MEAN CELL VOLUME 89.1 fl (80.0-105.0); MEAN CORPUSCULAR HEMOGLOBIN 28.2 pg (25.0-35.0); MEAN CORPUSCULAR HGB CONC 31.6 g/dl (31.0-37.0); MEAN PLATELET VOLUME 10.7 fl (7.0-11.0); MONO # 0.6 (0.1-0.6); MONO % 7.8 % (1.0-6.0); RBC 4.58 10^6/uL (3.5-6.1); RED CELL DISTRIBUTION WIDTH 14.8 % (11.5-14.5)
--- NOTE | 2019-01-03 07:47 | CP.PCM.PN ---
<Tarun Del Cid - Last Filed: 01/03/19 16:31> Subjective - Date & Time of Evaluation Date of Evaluation: 01/03/19 Time of Evaluation: 07:47 - Subjective Subjective: PGY1 Progress note for Dr. Montana Patient was seen and evaluated at bedside this morning. No acute events overnight. Please note, Patient is a poor historian at baseline as she has dementia. Patient has no new complaints. Patient denies headache, dizziness, chest pain, shortness of breath, abdominal pain, dysuria, numbness/tingling in lower extremities, nausea, vomiting, fever, and/or chills. Objective - Vital Signs/Intake and Output Vital Signs (last 24 hours): Temp Pulse Resp BP Pulse Ox 98.4 F 82 20 128/68 96 01/03/19 07:40 01/03/19 07:40 01/03/19 07:40 01/03/19 07:40 01/03/19 07:40 - Medications Medications: Current Medications Acetaminophen (Tylenol 325mg Tab) 650 mg PO Q4H PRN PRN Reason: Fever >100.4 F Apixaban (Eliquis) 5 mg PO BID [facility]; Protocol Aspirin (Ecotrin) 81 mg PO DAILY [facility] Dextrose (Dextrose 50% Inj) 0 ml IV STAT PRN; Protocol PRN Reason: Hypoglycemia Protocol Donepezil HCl (Aricept) 10 mg PO HS [facility] Sodium Chloride (Sodium Chloride 0.9%) 1,000 mls @ 75 mls/hr IV .[id number] [facility] Last Admin: 01/02/19 22:58 Dose: 75 mls/hr Piperacillin Sod/Tazobactam Sod (Zosyn 3.375 In Ns 100ml) 100 mls @ 25 mls/hr IVPB Q8 [facility]; Protocol Stop: 01/09/19 22:16 Last Admin: 01/03/19 06:30 Dose: 25 mls/hr Dextrose (Dextrose 5% In Water 1000 Ml) 1,000 mls @ 0 mls/hr IV .Q0M PRN; Protocol PRN Reason: Hypoglycemia Protocol Insulin Human Regular (Humulin R High) 0 units SC ACHS [facility]; Protocol Last Admin: 01/03/19 07:32 Dose: Not Given Losartan Potassium (Cozaar) 25 mg PO DAILY [facility] Memantine (Namenda) 10 mg PO BID [facility] Metoprolol Tartrate (Lopressor) 50 mg PO BID [facility] Pregabalin (Lyrica) 50 mg PO BID [facility] - Labs Labs: 01/02/19 19:00 01/02/19 19:00 - Additional Findings Additional findings: - Constitutional Appears: Well, No Acute Distress - Head Exam Head Exam: ATRAUMATIC, NORMOCEPHALIC - Eye Exam Eye Exam: EOMI, Normal appearance, PERRL - ENT Exam ENT Exam: Mucous Membranes Moist - Neck Exam Neck exam: Positive for: Normal Inspection - Respiratory Exam Respiratory Exam: Clear to Auscultation Bilateral, NORMAL BREATHING PATTERN. absent: Decreased Breath Sounds, Rales, Rhonchi, Wheezes - Cardiovascular Exam Cardiovascular Exam: Irregular Rhythm, +S1, +S2. absent: Gallop, Rubs, Systolic Murmur, JVD - GI/Abdominal Exam GI & Abdominal Exam: Normal Bowel Sounds, Soft. absent: Distended, Firm, Tenderness, Rebound - Extremities Exam Extremities exam: Positive for: normal inspection. Negative for: calf tenderness, pedal edema - Neurological Exam Neurological exam: Alert, CN II-XII Intact. absent: Oriented x3 - Psychiatric Exam Psychiatric exam: Normal Affect, Normal Mood - Skin Skin Exam: Dry, Warm Assessment and Plan - Assessment and Plan (Free Text) Assessment: Patient is an 83 year old female with past medical history of afib on eliquis, HTN, CAD, T2DM, dementia, peripheral neuropathy who was brought to ED by daughter for lethargy and fever of 101 F for one day, admitted for management of sepsis secondary to UTI. Plan: Sepsis Likely Secondary to UTI - code sepsis called in ED - SIRS positive: temp 101.3, HR 97, WBC 14.4 - UA shows positive nitrates, small leuk esterase, 5-10 WBCs - 1.5 grams vancomycin and 3.375 grams Zosyn given in ED - Zosyn 3.375 gm IV Q8H - Tylenol PRN for fever - NS @ 75 ccs/hr - CXR: no active disease - blood and urine cultures - CT abd/pelvis: diverticulitis of the sigmoid colon and descending colon with no definite evidence of diverticulitis Leukocytosis, resolved - WBC=8 today - Patient afebrile - Monitor CBC Atrial fibrillation - Continue home eliquis HTN - Continue home Cozaar, Lopressor T2DM - ISS, Accuchecks - Hold home meds - Hypoglycemia protocol - Healthy Heart Diet Dementia - continue home Aricept, Memantine PPX - DVT: on eliquis - GI: not indicated at this time Patient seen and case discussed in detail with Dr. Rubén Del Cid PGY1 <Neal Montana - Last Filed: 01/03/19 17:53> Objective - Vital Signs/Intake and Output Vital Signs (last 24 hours): Temp Pulse Resp BP Pulse Ox 97.7 F 72 20 126/58 L 100 01/03/19 17:00 01/03/19 17:00 01/03/19 17:00 01/03/19 17:00 01/03/19 17:00 - Medications Medications: Current Medications Acetaminophen (Tylenol 325mg Tab) 650 mg PO Q4H PRN PRN Reason: Fever >100.4 F Apixaban (Eliquis) 5 mg PO BID [facility]; Protocol Last Admin: 01/03/19 11:43 Dose: 5 mg Aspirin (Ecotrin) 81 mg PO DAILY [facility] Last Admin: 01/03/19 11:32 Dose: 81 mg Dextrose (Dextrose 50% Inj) 0 ml IV STAT PRN; Protocol PRN Reason: Hypoglycemia Protocol Donepezil HCl (Aricept) 10 mg PO HS [facility] Sodium Chloride (Sodium Chloride 0.9%) 1,000 mls @ 75 mls/hr IV .[id number] [facility] Last Admin: 01/03/19 11:00 Dose: 75 mls/hr Piperacillin Sod/Tazobactam Sod (Zosyn 3.375 In Ns 100ml) 100 mls @ 25 mls/hr IVPB Q8 [facility]; Protocol Stop: 01/09/19 22:16 Last Admin: 01/03/19 14:35 Dose: 25 mls/hr Dextrose (Dextrose 5% In Water 1000 Ml) 1,000 mls @ 0 mls/hr IV .Q0M PRN; Protocol PRN Reason: Hypoglycemia Protocol Insulin Human Regular (Humulin R High) 0 units SC ACHS [facility]; Protocol Last Admin: 01/03/19 16:50 Dose: Not Given Losartan Potassium (Cozaar) 25 mg PO DAILY [facility] Last Admin: 01/03/19 11:43 Dose: 25 mg Memantine (Namenda) 10 mg PO BID [facility] Last Admin: 01/03/19 11:32 Dose: 10 mg Metoprolol Tartrate (Lopressor) 50 mg PO BID [facility] Last Admin: 01/03/19 11:33 Dose: 50 mg Pregabalin (Lyrica) 50 mg PO BID [facility] Last Admin: 01/03/19 11:31 Dose: 50 mg - Labs Labs: 01/03/19 07:00 01/03/19 07:00 Attending/Attestation - Attestation I have personally seen and examined this patient.: Yes I have fully participated in the care of the patient.: Yes I have reviewed all pertinent clinical information, including history, physical exam and plan: Yes Notes (Text): 01/03/19 17:45 83 year old female with past medical history of afib on eliquis, hypertension, CAD, diabetes and demential who presented with sepsis secondary to UTI. Also found to have LLL infiltate on CT scan. Continue with iv antibiotics as per ID while awaiting cultures. Leukocytosis has improved. CT shows divertuculosis without diverticulitis. Neal Montana MD Hospitalist.
[2019-01-03 08:20] LABS: ALBUMIN 3.3 g/dL (3.0-4.8); ALT/SGPT < 6 U/L (7-56); AST/SGOT 20 U/L (14-36); BLOOD UREA NITROGEN 17 mg/dL (7-21); CALCIUM 8.1 mg/dL (8.4-10.5); GFR NON-AFRICAN AMERICAN > 60
--- NOTE | 2019-01-03 09:46 | RAD ---
Date of service: 01/02/2019 HISTORY: pneumonia COMPARISON: 10/19/2018 FINDINGS: LUNGS: No active pulmonary disease. PLEURA: No significant pleural effusion identified, no pneumothorax apparent. CARDIOVASCULAR: Aortic calcification Mild cardiomegaly no pulmonary vascular congestion. OSSEOUS STRUCTURES: Sternal wires VISUALIZED UPPER ABDOMEN: Normal. OTHER FINDINGS: None. IMPRESSION: No active disease.
--- NOTE | 2019-01-03 10:09 | CARD ---
APPROVED REPORT Date of service: 01/02/2019 EKG Measurement Heart [id number] <Conclusion> Atrial fibrillation with a competing junctional pacemaker ST & T wave abnormality, consider inferolateral ischemia or digitalis effect Abnormal ECG
[2019-01-03] MEDS: Sodium Chloride 0.9% 1,000 ML IV SCH (11:00)
[2019-01-03] MEDS ORDERED: Insulin Regular 1 UNITS/0.01 ML ML ONE (12:09)
--- NOTE | 2019-01-03 12:40 | CT ---
Date of service: 01/02/2019 PROCEDURE: CT Abdomen and Pelvis without intravenous contrast HISTORY: sepsis COMPARISON: None. TECHNIQUE: Without contrast.. Contrast dose: Radiation dose: Total exam DLP = 798.3 mGy-cm. This CT exam was performed using one or more of the following dose reduction techniques: Automated exposure control, adjustment of the mA and/or kV according to patient size, and/or use of iterative reconstruction technique. FINDINGS: LOWER THORAX: Infiltrate at the left lung base. LIVER: Unremarkable. No gross lesion or ductal dilatation. GALLBLADDER AND BILE DUCTS: Gallstone PANCREAS: Unremarkable. No gross lesion or ductal dilatation. SPLEEN: Unremarkable. ADRENALS: Unremarkable. No mass. KIDNEYS AND URETERS: Unremarkable. No hydronephrosis. No solid mass. VASCULATURE: Unremarkable. No aortic aneurysm. Aortic calcification BOWEL: There is diverticulosis of the sigmoid colon and descending colon with no definite evidence of diverticulitis. APPENDIX: Unremarkable. Normal appendix. PERITONEUM: Unremarkable. No free fluid. No free air. LYMPH NODES: Unremarkable. No enlarged lymph nodes. BLADDER: Unremarkable. REPRODUCTIVE: Unremarkable. BONES: No acute fracture. OTHER FINDINGS: The report concurs with the preliminary [facility] report IMPRESSION: There is diverticulosis of the sigmoid colon and descending colon with no definite evidence of diverticulitis.
[2019-01-03] MEDS ORDERED: Influenza Vaccine 60 mcg/0.5 mL SYR (4YR UP) IM ONE (13:33)
[2019-01-03] MEDS ORDERED: Pneumococcal 23-Valent Vaccine IM ONE (13:33)
--- NOTE | 2019-01-03 17:39 | CP.PCM.CON ---
History of Present Illness - History of Present Illness History of Present Illness: 83 year old female with PMH of atrial fibrillation, HTN, DM, peripheral neuropathy, history of pneumonia came in to [facility] because of fever and lethargy for about 1-2 days. She previously saw a urologist as an outpatient and was told she may have UTI and was prescribed Bactrim recently. She states she is having dysuria. She is currently more awake and alert and is denying headache, no dizziness, no chest pain, no SOB, no rhinorrhea, no sore throat, no muscle aches, no abdominal but is complaining of flank pain, no diarrhea, no dysphagia, no cough. Urinalysis shows pyuria. Infectious Diseases consult is requested to further evaluate and manage. Review of Systems - Review of Systems All systems: reviewed and no additional remarkable complaints except (as per HPI) Past Patient History - Infectious Disease Hx of Infectious Diseases: None - Past Social History Smoking Status: Never Smoked - CARDIAC Hx Cardiac Disorders: Yes (AFIB) Hx Hypertension: Yes - PULMONARY Hx Respiratory Disorders: Yes Hx Respiratory Tract Infection: Yes (Current 10/19/18.) - NEUROLOGICAL Hx Neurological Disorder: Yes (Peripheral Neuropathy) Hx Dizziness: Yes (Vertigo) - HEENT Hx HEENT Problems: No (Denied by pt.) - RENAL Hx Chronic Kidney Disease: No (Denied by pt.) - ENDOCRINE/METABOLIC Hx Diabetes Mellitus Type 2: Yes - HEMATOLOGICAL/ONCOLOGICAL Hx Blood Disorders: No (Denied by pt.) - INTEGUMENTARY Hx Dermatological Problems: No (Denied by pt.) - MUSCULOSKELETAL/RHEUMATOLOGICAL Hx Arthritis: Yes (knees; hands) - GASTROINTESTINAL Hx Gastrointestinal Disorders: Yes Hx Diverticulitis: Yes (Hx of diverticulosis) Hx Gastroesophageal Reflux: Yes - GENITOURINARY/GYNECOLOGICAL Hx Genitourinary Disorders: Yes Hx Incontinence: Yes Hx Urinary Tract Infection: Yes - PSYCHIATRIC Hx Psychophysiologic Disorder: Yes Hx Anxiety: Yes Hx Depression: Yes Hx Substance Use: No - SURGICAL HISTORY Hx Cardiac Catheterization: Yes (Stent x 1) Hx Coronary Stent: Yes Hx Open Heart Surgery: Yes - ANESTHESIA Hx Anesthesia Reactions: No Hx Malignant Hyperthermia: No Meds Allergies/Adverse Reactions: Allergies Allergy/AdvReac Type Severity Reaction Status Date / Time No Known Allergies Allergy Verified 10/22/18 17:15 - Medications Medications: Current Medications Acetaminophen (Tylenol 325mg Tab) 650 mg PO Q4H PRN PRN Reason: Fever >100.4 F Apixaban (Eliquis) 5 mg PO BID [facility]; Protocol Aspirin (Ecotrin) 81 mg PO DAILY [facility] Dextrose (Dextrose 50% Inj) 0 ml IV STAT PRN; Protocol PRN Reason: Hypoglycemia Protocol Donepezil HCl (Aricept) 10 mg PO HS [facility] Sodium Chloride (Sodium Chloride 0.9%) 1,000 mls @ 75 mls/hr IV .[id number] [facility] Last Admin: 01/02/19 22:58 Dose: 75 mls/hr Piperacillin Sod/Tazobactam Sod (Zosyn 3.375 In Ns 100ml) 100 mls @ 25 mls/hr IVPB Q8 [facility]; Protocol Stop: 01/03/19 09:59 Last Admin: 01/02/19 23:22 Dose: Not Given Dextrose (Dextrose 5% In Water 1000 Ml) 1,000 mls @ 0 mls/hr IV .Q0M PRN; Protocol PRN Reason: Hypoglycemia Protocol Insulin Human Regular (Humulin R High) 0 units SC ACHS [facility]; Protocol Losartan Potassium (Cozaar) 25 mg PO DAILY [facility] Memantine (Namenda) 10 mg PO BID [facility] Metoprolol Tartrate (Lopressor) 50 mg PO BID [facility] Pregabalin (Lyrica) 50 mg PO BID [facility] Physical Exam - Constitutional Appears: No Acute Distress, Chronically Ill - Head Exam Head Exam: NORMAL INSPECTION - ENT Exam ENT Exam: Mucous Membranes Moist - Neck Exam Neck exam: Negative for: Meningismus - Respiratory Exam Respiratory Exam: Decreased Breath Sounds - Cardiovascular Exam Cardiovascular Exam: +S1, +S2 - GI/Abdominal Exam GI & Abdominal Exam: Soft. absent: Tenderness Results - Vital Signs Recent Vital Signs: Last Vital Signs Temp 98.8 F 01/03/19 00:22 Pulse 77 01/03/19 06:01 Resp 17 01/03/19 06:01 BP 136/66 01/03/19 06:01 Pulse Ox 98 01/03/19 06:01 - Labs Result Diagrams: 01/03/19 07:00 01/03/19 07:00 Labs: Laboratory Results - last 24 hr 01/02/19 01/02/19 01/02/19 19:00 19:00 19:20 WBC 14.4 H D RBC 5.24 Hgb 15.2 D Hct 46.4 MCV 88.5 MCH 29.0 MCHC 32.8 RDW 14.7 H Plt Count 183 MPV 10.4 Neut % (Auto) 85.8 H Lymph % (Auto) 8.9 L [place] % (Auto) 5.1 Eos % (Auto) 0.1 L Baso % (Auto) 0.1 Lymph # (Auto) 1.3 [place] # (Auto) 0.7 H Eos # (Auto) 0.0 Baso # (Auto) 0.02 Absolute Neuts (auto) 12.39 H pO2 73 H VBG pH 7.40 VBG pCO2 40.0 VBG HCO3 24.8 VBG Total CO2 26.0 VBG O2 Sat (Calc) 97.4 H VBG Base Excess 0.0 VBG Potassium 4.7 Glucose 219 H Lactate 2.0 FiO2 21.0 Sodium 135 133.0 Potassium 5.0 Chloride 101 101.0 Carbon Dioxide 24 Anion Gap 14 BUN 18 Creatinine 0.8 Est GFR ( Amer) > 60 Est GFR (Non-Af Amer) > 60 Random Glucose 212 H Calcium 8.7 Total Bilirubin 1.1 AST 31 ALT 7 Alkaline Phosphatase 62 Total Protein 8.0 Albumin 4.1 Globulin 4.0 Albumin/Globulin Ratio 1.0 L Venous Blood Potassium 4.7 Urine Color Urine Appearance Urine pH Ur Specific [place] Urine Protein Urine Glucose (UA) Urine Ketones Urine Blood Urine Nitrate Urine Bilirubin Urine Urobilinogen Ur Leukocyte Esterase Urine RBC Urine WBC Ur Epithelial Cells 01/02/19 01/02/19 20:20 23:01 WBC RBC Hgb Hct MCV MCH MCHC RDW Plt Count MPV Neut % (Auto) Lymph % (Auto) [place] % (Auto) Eos % (Auto) Baso % (Auto) Lymph # (Auto) [place] # (Auto) Eos # (Auto) Baso # (Auto) Absolute Neuts (auto) pO2 86 H VBG pH 7.31 L VBG pCO2 54.0 VBG HCO3 27.2 VBG Total CO2 28.9 H VBG O2 Sat (Calc) 98.5 H VBG Base Excess 0.0 VBG Potassium 4.5 Glucose 152 H Lactate 1.4 FiO2 21.0 Sodium 136.0 Potassium Chloride 105.0 Carbon Dioxide Anion Gap BUN Creatinine Est GFR ( Amer) Est GFR (Non-Af Amer) Random Glucose Calcium Total Bilirubin AST ALT Alkaline Phosphatase Total Protein Albumin Globulin Albumin/Globulin Ratio Venous Blood Potassium 4.5 Urine Color Yellow Urine Appearance Clear Urine pH 6.5 Ur Specific [place] 1.015 Urine Protein Trace H Urine Glucose (UA) Negative Urine Ketones Negative Urine Blood Trace-intact H Urine Nitrate Positive H Urine Bilirubin Negative Urine Urobilinogen 0.2 Ur Leukocyte Esterase Small H Urine RBC 5 - 10 H Urine WBC 5 - 10 H Ur Epithelial Cells Many H Assessment & Plan - Assessment and Plan (Free Text) Plan: Assessment consider sepsis due to UTI / pyelonephritis S/P treatment for community-acquired pneumonia and Influenza atrial fibrillation HTN DM peripheral neuropathy Plan started Zosyn and gave a dose of IV Vancomycin pending blood and urine cx reviewed CT A/P which did not show perinephric stranding or hydronephrosis will monitor clinically
[2019-01-04] MEDS: Piperacillin/Tazobact 3.375 gm 100 ML IVPB SCH ×3 (05:51→21:54)
[2019-01-04 07:54] LABS: BASO # 0.01 K/mm3 (0.0-2.0); BASO % 0.1 % (0.0-3.0); EOS # 0.3 (0.0-0.7); EOS % 4.2 % (1.5-5.0); HEMOGLOBIN 12.7 g/dL (12.0-16.0); LYMPH # 1.9 (1.2-3.4); LYMPH % 26.7 % (22.0-35.0); MEAN CELL VOLUME 90.4 fl (80.0-105.0); MEAN CORPUSCULAR HEMOGLOBIN 28.3 pg (25.0-35.0); MEAN CORPUSCULAR HGB CONC 31.4 g/dl (31.0-37.0); MEAN PLATELET VOLUME 10.7 fl (7.0-11.0); MONO # 0.6 (0.1-0.6); MONO % 8.5 % (1.0-6.0); RBC 4.48 10^6/uL (3.5-6.1); RED CELL DISTRIBUTION WIDTH 14.8 % (11.5-14.5)
[2019-01-04 08:03] LABS: ALB/GLOB RATIO 0.9 (1.1-1.8); ALBUMIN 3.2 g/dL (3.0-4.8); ALT/SGPT 8 U/L (7-56); AST/SGOT 18 U/L (14-36); BLOOD UREA NITROGEN 15 mg/dL (7-21); CALCIUM 7.9 mg/dL (8.4-10.5); GFR NON-AFRICAN AMERICAN > 60
[2019-01-04] MEDS: Insulin Reg-HIGH-Coverage SC SCH ×3 (08:35→17:14)
[2019-01-04] MEDS: Sodium Chloride 0.9% 1,000 ML IV SCH (10:31)
--- NOTE | 2019-01-04 11:56 | CP.PCM.APN ---
Subjective - Date & Time of Evaluation Date of Evaluation: 01/04/19 Time of Evaluation: 10:50 - Subjective Subjective: pt seen and examined with nurse at bedside pt offers no complaints and is no NAD Review of Systems - Review of Systems All systems: reviewed and no additional remarkable complaints except Objective - Vital Signs/Intake and Output Vital Signs (last 24 hours): Temp Pulse Resp BP Pulse Ox 97.5 F L 74 18 150/74 94 L 01/04/19 06:00 01/04/19 10:33 01/04/19 06:00 01/04/19 10:33 01/04/19 06:00 Intake and Output: 01/04/19 01/04/19 06:59 18:59 Intake Total 1500 Output Total 600 Balance 900 - Medications Medications: Current Medications Acetaminophen (Tylenol 325mg Tab) 650 mg PO Q4H PRN PRN Reason: Fever >100.4 F Apixaban (Eliquis) 5 mg PO BID [facility]; Protocol Last Admin: 01/04/19 10:32 Dose: 5 mg Aspirin (Ecotrin) 81 mg PO DAILY [facility] Last Admin: 01/04/19 10:32 Dose: 81 mg Dextrose (Dextrose 50% Inj) 0 ml IV STAT PRN; Protocol PRN Reason: Hypoglycemia Protocol Donepezil HCl (Aricept) 10 mg PO HS [facility] Last Admin: 01/03/19 21:57 Dose: 10 mg Famotidine (Pepcid) 20 mg PO HS [facility] Sodium Chloride (Sodium Chloride 0.9%) 1,000 mls @ 75 mls/hr IV .[id number] [facility] Last Admin: 01/04/19 10:31 Dose: 75 mls/hr Piperacillin Sod/Tazobactam Sod (Zosyn 3.375 In Ns 100ml) 100 mls @ 25 mls/hr IVPB Q8 [facility]; Protocol Stop: 01/09/19 22:16 Last Admin: 01/04/19 05:51 Dose: 25 mls/hr Dextrose (Dextrose 5% In Water 1000 Ml) 1,000 mls @ 0 mls/hr IV .Q0M PRN; Protocol PRN Reason: Hypoglycemia Protocol Insulin Human Regular (Humulin R High) 0 units SC ACHS [facility]; Protocol Last Admin: 01/04/19 08:35 Dose: Not Given Losartan Potassium (Cozaar) 25 mg PO DAILY [facility] Last Admin: 01/04/19 10:31 Dose: 25 mg Memantine (Namenda) 10 mg PO BID [facility] Last Admin: 01/04/19 10:33 Dose: 10 mg Metoprolol Tartrate (Lopressor) 50 mg PO BID [facility] Last Admin: 01/04/19 10:33 Dose: 50 mg Pregabalin (Lyrica) 50 mg PO BID [facility] Last Admin: 01/04/19 10:33 Dose: 50 mg - Labs Labs: 01/04/19 07:45 01/04/19 07:45 - Constitutional Appears: No Acute Distress - Head Exam Head Exam: NORMOCEPHALIC - Eye Exam Eye Exam: PERRL Pupil Exam: NORMAL ACCOMODATION - ENT Exam ENT Exam: Mucous Membranes Moist - Respiratory Exam Respiratory Exam: Decreased Breath Sounds Additional comments: irreg ireg - Cardiovascular Exam Cardiovascular Exam: +S1, +S2 - GI/Abdominal Exam GI & Abdominal Exam: Soft, Normal Bowel Sounds - Extremities Exam Extremities Exam: Normal Capillary Refill - Neurological Exam Neurological Exam: Awake - Psychiatric Exam Additional comments: demented - Skin Skin Exam: Dry Assessment and Plan - Assessment and Plan (Free Text) Plan: ITS Impressions Chest X-Ray 01/02/19 20:02 IMPRESSION: No active disease. Abdomen/Pelvis CT 01/02/19 20:03 IMPRESSION: There is diverticulosis of the sigmoid colon and descending colon with no definite evidence of diverticulitis. pt is a 83 yr old female with pmh sig for dementia, lives alone, afib on eliqios, htn, cad, peripheral neuropathy, cad s/p cabg, htn admitted after daughter found her to be lethargic with fever 101, recently treated for uti with bactrim as outpt pt is now admitted with septic workup in progress on IV antibiotics with Dr Lazaro on consultation. spoke to [facility] at [facility], prelim MRSA nares negative, final results to be ready later today, will await results discuss plan with RN Pt awaiting p.t eval will continue to follow clinical course jaki emery BPCI/TIC - BPCIA/TIC Educated pt/family on BPCIA/CIR/Med to Bed Programs: Yes Flyers given, including [facility] Beneficiary letter: Yes Pt/family verbalized understanding & agreed to program: Yes (pt demented, family follow up needed)
--- NOTE | 2019-01-04 15:18 | CP.PCM.PN ---
Subjective - Date & Time of Evaluation Date of Evaluation: 01/04/19 Time of Evaluation: 12:55 - Subjective Subjective: Feels better, no fevers, not in distress. Objective - Vital Signs/Intake and Output Vital Signs (last 24 hours): Temp Pulse Resp BP Pulse Ox 97.7 F 72 20 126/58 L 100 01/03/19 17:00 01/03/19 17:00 01/03/19 17:00 01/03/19 17:00 01/03/19 17:00 - Medications Medications: Current Medications Acetaminophen (Tylenol 325mg Tab) 650 mg PO Q4H PRN PRN Reason: Fever >100.4 F Apixaban (Eliquis) 5 mg PO BID [facility]; Protocol Last Admin: 01/03/19 11:43 Dose: 5 mg Aspirin (Ecotrin) 81 mg PO DAILY [facility] Last Admin: 01/03/19 11:32 Dose: 81 mg Dextrose (Dextrose 50% Inj) 0 ml IV STAT PRN; Protocol PRN Reason: Hypoglycemia Protocol Donepezil HCl (Aricept) 10 mg PO HS [facility] Sodium Chloride (Sodium Chloride 0.9%) 1,000 mls @ 75 mls/hr IV .[id number] [facility] Last Admin: 01/03/19 11:00 Dose: 75 mls/hr Piperacillin Sod/Tazobactam Sod (Zosyn 3.375 In Ns 100ml) 100 mls @ 25 mls/hr IVPB Q8 [facility]; Protocol Stop: 01/09/19 22:16 Last Admin: 01/03/19 14:35 Dose: 25 mls/hr Dextrose (Dextrose 5% In Water 1000 Ml) 1,000 mls @ 0 mls/hr IV .Q0M PRN; Protocol PRN Reason: Hypoglycemia Protocol Insulin Human Regular (Humulin R High) 0 units SC ACHS [facility]; Protocol Last Admin: 01/03/19 16:50 Dose: Not Given Losartan Potassium (Cozaar) 25 mg PO DAILY [facility] Last Admin: 01/03/19 11:43 Dose: 25 mg Memantine (Namenda) 10 mg PO BID [facility] Last Admin: 01/03/19 11:32 Dose: 10 mg Metoprolol Tartrate (Lopressor) 50 mg PO BID [facility] Last Admin: 01/03/19 11:33 Dose: 50 mg Pregabalin (Lyrica) 50 mg PO BID [facility] Last Admin: 01/03/19 11:31 Dose: 50 mg - Labs Labs: 01/03/19 07:00 01/03/19 07:00 - Constitutional Appears: Chronically Ill - Head Exam Head Exam: NORMAL INSPECTION - Respiratory Exam Respiratory Exam: Decreased Breath Sounds - Cardiovascular Exam Cardiovascular Exam: +S1, +S2 - GI/Abdominal Exam GI & Abdominal Exam: Soft. absent: Tenderness Assessment and Plan - Assessment and Plan (Free Text) Plan: Assessment consider sepsis due to UTI / pyelonephritis S/P treatment for community-acquired pneumonia and Influenza atrial fibrillation HTN DM peripheral neuropathy Plan continue Zosyn day 2 and gave a dose of IV Vancomycin; blood and urine cx are negative - urine cx taken after Zosyn was given reviewed CT A/P which did not show perinephric stranding or hydronephrosis will continue to monitor clinically
--- NOTE | 2019-01-04 17:59 | CP.PCM.PN ---
<Dalia Stout - Last Filed: 01/04/19 17:55> Subjective - Date & Time of Evaluation Date of Evaluation: 01/04/19 Time of Evaluation: 17:55 - Subjective Subjective: Dalia Stout, PGY-1, Internal Medicine Progress Note for Dr. [place] Patient seen and evaluated at bedside. Patient had no acute overnight events. Patient denies any current symptoms including dysuria, hematuria, chest pain, heart palpitations, shortness of breath, cough, sputum, nausea, vomiting, constipation, diarrhea, dysuria, hematuria. 12-point ROS was unremarkable except for what was mentioned above. Objective - Vital Signs/Intake and Output Vital Signs (last 24 hours): Temp Pulse Resp BP Pulse Ox 97.7 F 66 16 115/56 L 94 L 01/04/19 14:00 01/04/19 17:15 01/04/19 14:00 01/04/19 17:15 01/04/19 14:00 Intake and Output: 01/04/19 01/04/19 06:59 18:59 Intake Total 1500 480 Output Total 600 500 Balance 900 -20 - Medications Medications: Current Medications Acetaminophen (Tylenol 325mg Tab) 650 mg PO Q4H PRN PRN Reason: Fever >100.4 F Apixaban (Eliquis) 5 mg PO BID [facility]; Protocol Last Admin: 01/04/19 17:15 Dose: 5 mg Aspirin (Ecotrin) 81 mg PO DAILY [facility] Last Admin: 01/04/19 10:32 Dose: 81 mg Dextrose (Dextrose 50% Inj) 0 ml IV STAT PRN; Protocol PRN Reason: Hypoglycemia Protocol Donepezil HCl (Aricept) 10 mg PO HS MAK Last Admin: 01/03/19 21:57 Dose: 10 mg Famotidine (Pepcid) 20 mg PO HS MAK Sodium Chloride (Sodium Chloride 0.9%) 1,000 mls @ 75 mls/hr IV .[id number] [facility] Last Admin: 01/04/19 10:31 Dose: 75 mls/hr Piperacillin Sod/Tazobactam Sod (Zosyn 3.375 In Ns 100ml) 100 mls @ 25 mls/hr IVPB Q8 MAK; Protocol Stop: 01/09/19 22:16 Last Admin: 01/04/19 13:24 Dose: 25 mls/hr Dextrose (Dextrose 5% In Water 1000 Ml) 1,000 mls @ 0 mls/hr IV .Q0M PRN; Protocol PRN Reason: Hypoglycemia Protocol Insulin Human Regular (Humulin R High) 0 units SC ACHS [facility]; Protocol Last Admin: 01/04/19 17:14 Dose: 2 unit Losartan Potassium (Cozaar) 25 mg PO DAILY [facility] Last Admin: 01/04/19 10:31 Dose: 25 mg Memantine (Namenda) 10 mg PO BID [facility] Last Admin: 01/04/19 17:17 Dose: 10 mg Metoprolol Tartrate (Lopressor) 50 mg PO BID [facility] Last Admin: 01/04/19 17:15 Dose: Not Given Pregabalin (Lyrica) 50 mg PO BID [facility] Last Admin: 01/04/19 17:17 Dose: 50 mg - Labs Labs: 01/04/19 07:45 01/04/19 07:45 - Constitutional Appears: Well, Non-toxic, No Acute Distress - Head Exam Head Exam: ATRAUMATIC, NORMAL INSPECTION, NORMOCEPHALIC - Eye Exam Eye Exam: EOMI, PERRL - ENT Exam ENT Exam: Mucous Membranes Moist - Respiratory Exam Respiratory Exam: Wheezes - Cardiovascular Exam Cardiovascular Exam: REGULAR RHYTHM, RRR - GI/Abdominal Exam GI & Abdominal Exam: Soft, Normal Bowel Sounds. absent: Tenderness - Extremities Exam Extremities Exam: Full ROM - Neurological Exam Neurological Exam: Alert, Awake, CN II-XII Intact, Oriented x3 - Skin Skin Exam: Dry, Intact, Normal Color Assessment and Plan - Assessment and Plan (Free Text) Assessment: 83 year old female with past medical history of atrial fibrillation of eliquis, hypertension, CAD, type II diabetes mellitus, dementia, and peripheral neuropathy presents for sepsis 2/2 to UTI. Plan: Sepsis 2/2 to UTI -SIRS positive: Temp: 101.3, HR: 97, and WBC: 14.4 on admission -UA: trace protein, trace intact blood, positive nitrate, small LE, 5-10 RBC, 5- 10 WBC, many epithelial cells -Possibly contaminated sample due to many epithelial cells -Urine culture negative, however, UCx taken after antibiotics started so unreliable -Blood culture negative for 24 hours. -MRSA negative. -Continue NS at 75 ml/hr -Zosyn day 2 of 7 Atrial fibrillation -EKG: atrial fibrillation with competing junctional pacemaker with HR: 93 -Continue with metoprolol 50 mg BID for rate control -Anticoagulation with home eliquis 5 mg BID Alzheimer's Dementia -Continue with aricept, namenda Coronary Artery Disease -Continue with home aspirin, lopressor, cozaar -Heart healthy diet Diabetes Mellitus Type II with peripheral neuropathy -Continue with High SSI -Continue with lyrica 50 mg BID -Accuchecks ACHS GI prophylaxis: pepcid 20 mg daily DVT prophylaxis: eliquis 5 mg BID Patient plan discussed with attending. <Neal Montana - Last Filed: 01/04/19 18:27> Objective - Vital Signs/Intake and Output Vital Signs (last 24 hours): Temp Pulse Resp BP Pulse Ox 97.7 F 66 16 115/56 L 94 L 01/04/19 14:00 01/04/19 17:15 01/04/19 14:00 01/04/19 17:15 01/04/19 14:00 Intake and Output: 01/04/19 01/04/19 06:59 18:59 Intake Total 1500 480 Output Total 600 500 Balance 900 -20 - Medications Medications: Current Medications Acetaminophen (Tylenol 325mg Tab) 650 mg PO Q4H PRN PRN Reason: Fever >100.4 F Apixaban (Eliquis) 5 mg PO BID [facility]; Protocol Last Admin: 01/04/19 17:15 Dose: 5 mg Aspirin (Ecotrin) 81 mg PO DAILY [facility] Last Admin: 01/04/19 10:32 Dose: 81 mg Dextrose (Dextrose 50% Inj) 0 ml IV STAT PRN; Protocol PRN Reason: Hypoglycemia Protocol Donepezil HCl (Aricept) 10 mg PO HS [facility] Last Admin: 01/03/19 21:57 Dose: 10 mg Famotidine (Pepcid) 20 mg PO HS MAK Sodium Chloride (Sodium Chloride 0.9%) 1,000 mls @ 75 mls/hr IV .[id number] MAK Last Admin: 01/04/19 10:31 Dose: 75 mls/hr Piperacillin Sod/Tazobactam Sod (Zosyn 3.375 In Ns 100ml) 100 mls @ 25 mls/hr IVPB Q8 MAK; Protocol Stop: 01/09/19 22:16 Last Admin: 01/04/19 13:24 Dose: 25 mls/hr Dextrose (Dextrose 5% In Water 1000 Ml) 1,000 mls @ 0 mls/hr IV .Q0M PRN; Protocol PRN Reason: Hypoglycemia Protocol Insulin Human Regular (Humulin R High) 0 units SC ACHS [facility]; Protocol Last Admin: 01/04/19 17:14 Dose: 2 unit Losartan Potassium (Cozaar) 25 mg PO DAILY [facility] Last Admin: 01/04/19 10:31 Dose: 25 mg Memantine (Namenda) 10 mg PO BID [facility] Last Admin: 01/04/19 17:17 Dose: 10 mg Metoprolol Tartrate (Lopressor) 50 mg PO BID [facility] Last Admin: 01/04/19 17:15 Dose: Not Given Pregabalin (Lyrica) 50 mg PO BID [facility] Last Admin: 01/04/19 17:17 Dose: 50 mg - Labs Labs: 01/04/19 07:45 01/04/19 07:45 Attending/Attestation - Attestation I have personally seen and examined this patient.: Yes I have fully participated in the care of the patient.: Yes I have reviewed all pertinent clinical information, including history, physical exam and plan: Yes Notes (Text): 01/04/19 18:23 83 year old female with past medical history of afib on eliquis, hypertension, CAD, diabetes and demential who presented with sepsis secondary to UTI. Also found to have LLL infiltate on CT scan. Continue with iv antibiotics as per ID. Cultures are negative to date. Leukocytosis has improved. CT shows divertuculosis without diverticulitis. Consider d/c planning in 24-48 hrs if patient remains afebrile and cultures negative. Neal Montana MD Hospitalist.
[2019-01-05] MEDS: Piperacillin/Tazobact 3.375 gm 100 ML IVPB SCH ×2 (06:21→14:23)
--- NOTE | 2019-01-05 07:42 | CP.PCM.PN ---
Subjective - Date & Time of Evaluation Date of Evaluation: 01/05/19 Time of Evaluation: 07:42 Objective - Vital Signs/Intake and Output Vital Signs (last 24 hours): Temp Pulse Resp BP Pulse Ox 97.7 F 66 16 115/56 L 94 L 01/04/19 14:00 01/04/19 17:15 01/04/19 14:00 01/04/19 17:15 01/04/19 14:00 Intake and Output: 01/05/19 01/05/19 06:59 18:59 Intake Total 660 Output Total 400 Balance 260 - Medications Medications: Current Medications Acetaminophen (Tylenol 325mg Tab) 650 mg PO Q4H PRN PRN Reason: Fever >100.4 F Apixaban (Eliquis) 5 mg PO BID [facility]; Protocol Last Admin: 01/04/19 17:15 Dose: 5 mg Aspirin (Ecotrin) 81 mg PO DAILY [facility] Last Admin: 01/04/19 10:32 Dose: 81 mg Dextrose (Dextrose 50% Inj) 0 ml IV STAT PRN; Protocol PRN Reason: Hypoglycemia Protocol Donepezil HCl (Aricept) 10 mg PO HS [facility] Last Admin: 01/04/19 21:53 Dose: 10 mg Famotidine (Pepcid) 20 mg PO HS [facility] Last Admin: 01/04/19 21:53 Dose: 20 mg Sodium Chloride (Sodium Chloride 0.9%) 1,000 mls @ 75 mls/hr IV .[id number] [facility] Last Admin: 01/04/19 10:31 Dose: 75 mls/hr Piperacillin Sod/Tazobactam Sod (Zosyn 3.375 In Ns 100ml) 100 mls @ 25 mls/hr IVPB Q8 [facility]; Protocol Stop: 01/09/19 22:16 Last Admin: 01/05/19 06:21 Dose: 25 mls/hr Dextrose (Dextrose 5% In Water 1000 Ml) 1,000 mls @ 0 mls/hr IV .Q0M PRN; Protocol PRN Reason: Hypoglycemia Protocol Insulin Human Regular (Humulin R High) 0 units SC ACHS [facility]; Protocol Last Admin: 01/04/19 17:14 Dose: 2 unit Losartan Potassium (Cozaar) 25 mg PO DAILY [facility] Last Admin: 01/04/19 10:31 Dose: 25 mg Memantine (Namenda) 10 mg PO BID [facility] Last Admin: 01/04/19 17:17 Dose: 10 mg Metoprolol Tartrate (Lopressor) 50 mg PO BID [facility] Last Admin: 01/04/19 17:15 Dose: Not Given Pregabalin (Lyrica) 50 mg PO BID [facility] Last Admin: 01/04/19 17:17 Dose: 50 mg - Labs Labs: 01/04/19 07:45 01/04/19 07:45
[2019-01-05 08:06] LABS: BASO # 0.02 K/mm3 (0.0-2.0); BASO % 0.4 % (0.0-3.0); EOS # 0.2 (0.0-0.7); EOS % 4.2 % (1.5-5.0); HEMOGLOBIN 11.7 g/dL (12.0-16.0); LYMPH # 1.8 (1.2-3.4); LYMPH % 30.9 % (22.0-35.0); MEAN CELL VOLUME 90.7 fl (80.0-105.0); MEAN CORPUSCULAR HEMOGLOBIN 27.9 pg (25.0-35.0); MEAN CORPUSCULAR HGB CONC 30.8 g/dl (31.0-37.0); MEAN PLATELET VOLUME 10.2 fl (7.0-11.0); MONO # 0.5 (0.1-0.6); MONO % 7.9 % (1.0-6.0); RBC 4.19 10^6/uL (3.5-6.1); RED CELL DISTRIBUTION WIDTH 14.7 % (11.5-14.5); WHITE BLOOD COUNT 5.7 10^3/uL (4.5-11.0)
[2019-01-05] MEDS: Insulin Reg-HIGH-Coverage SC SCH ×2 (08:09→11:33)
[2019-01-05 08:18] VITALS: BP 180/89; PULSE 73; RESP 18; TEMP 97.8; O2SAT 97
[2019-01-05 08:27] LABS: ALB/GLOB RATIO 0.9 (1.1-1.8); ALT/SGPT 10 U/L (7-56); AST/SGOT 15 U/L (14-36); BLOOD UREA NITROGEN 13 mg/dL (7-21); CALCIUM 7.8 mg/dL (8.4-10.5); GFR NON-AFRICAN AMERICAN > 60
--- NOTE | 2019-01-05 12:14 | CP.PCM.PN ---
Subjective - Date & Time of Evaluation Date of Evaluation: 01/05/19 Time of Evaluation: 12:10 - Subjective Subjective: No fevers, not in distress, much more awake, no nausea, no diarrhea. Objective - Vital Signs/Intake and Output Vital Signs (last 24 hours): Temp Pulse Resp BP Pulse Ox 97.5 F L 74 18 150/74 94 L 01/04/19 06:00 01/04/19 10:33 01/04/19 06:00 01/04/19 10:33 01/04/19 06:00 Intake and Output: 01/04/19 01/04/19 06:59 18:59 Intake Total 1500 480 Output Total 600 500 Balance 900 -20 - Medications Medications: Current Medications Acetaminophen (Tylenol 325mg Tab) 650 mg PO Q4H PRN PRN Reason: Fever >100.4 F Apixaban (Eliquis) 5 mg PO BID [facility]; Protocol Last Admin: 01/04/19 10:32 Dose: 5 mg Aspirin (Ecotrin) 81 mg PO DAILY [facility] Last Admin: 01/04/19 10:32 Dose: 81 mg Dextrose (Dextrose 50% Inj) 0 ml IV STAT PRN; Protocol PRN Reason: Hypoglycemia Protocol Donepezil HCl (Aricept) 10 mg PO HS [facility] Last Admin: 01/03/19 21:57 Dose: 10 mg Famotidine (Pepcid) 20 mg PO HS [facility] Sodium Chloride (Sodium Chloride 0.9%) 1,000 mls @ 75 mls/hr IV .[id number] [facility] Last Admin: 01/04/19 10:31 Dose: 75 mls/hr Piperacillin Sod/Tazobactam Sod (Zosyn 3.375 In Ns 100ml) 100 mls @ 25 mls/hr IVPB Q8 [facility]K; Protocol Stop: 01/09/19 22:16 Last Admin: 01/04/19 13:24 Dose: 25 mls/hr Dextrose (Dextrose 5% In Water 1000 Ml) 1,000 mls @ 0 mls/hr IV .Q0M PRN; Protocol PRN Reason: Hypoglycemia Protocol Insulin Human Regular (Humulin R High) 0 units SC ACHS [facility]; Protocol Last Admin: 01/04/19 12:00 Dose: 2 unit Losartan Potassium (Cozaar) 25 mg PO DAILY [facility] Last Admin: 01/04/19 10:31 Dose: 25 mg Memantine (Namenda) 10 mg PO BID [facility] Last Admin: 01/04/19 10:33 Dose: 10 mg Metoprolol Tartrate (Lopressor) 50 mg PO BID [facility] Last Admin: 01/04/19 10:33 Dose: 50 mg Pregabalin (Lyrica) 50 mg PO BID [facility] Last Admin: 01/04/19 10:33 Dose: 50 mg - Labs Labs: 01/04/19 07:45 01/04/19 07:45 - Constitutional Appears: Non-toxic, No Acute Distress, Chronically Ill - Head Exam Head Exam: NORMAL INSPECTION - ENT Exam ENT Exam: Mucous Membranes Moist - Neck Exam Neck Exam: absent: Meningismus - Respiratory Exam Respiratory Exam: Decreased Breath Sounds - Cardiovascular Exam Cardiovascular Exam: +S1, +S2 - GI/Abdominal Exam GI & Abdominal Exam: Soft. absent: Tenderness Assessment and Plan - Assessment and Plan (Free Text) Plan: Assessment consider sepsis due to UTI / pyelonephritis S/P treatment for community-acquired pneumonia and Influenza atrial fibrillation HTN DM peripheral neuropathy Plan continue Zosyn day 3 and gave a dose of IV Vancomycin; blood and urine cx are negative - urine cx taken after Zosyn was given - based on previous cultures, can switch to PO Vantin for another 7-10 days with outpatient follow up with PMD reviewed CT A/P which did not show perinephric stranding or hydronephrosis discussed with medical team
--- NOTE | 2019-01-05 16:40 | CP.PCM.DIS ---
<Tarun Del Cid - Last Filed: 01/05/19 16:32> Provider - Provider Date of Admission: 01/02/19 21:05 Attending physician: Neal Montana MD Primary care physician: Dr. Nieves Consults: 01/02/19 22:08 Infectious Disease Consult Stat Comment: Consulting Provider: Duy Johnson Consulting Physician: Duy Johnson Reason for Consult: sepsis 2/2 UTI 01/03/19 13:02 Social Work Referral Routine Comment: d/c plan Physician Instructions: Reason For Exam: assess 01/03/19 13:03 Nursing Referral for Palliative Care Routine Comment: vinny score Physician Instructions: Reason For Exam: assess 01/03/19 13:33 Case Management Referral Routine Comment: Physician Instructions: Reason For Exam: Reason for Referral: Discharge Planning Inpatient [employer] Core Measures Referral Routine Comment: sepsis and confusion Physician Instructions: Reason For Exam: eval Transition In Care/Readmission Reduction Routine Comment: sepsis and confusion Physician Instructions: Reason For Exam: assess 01/05/19 11:28 Evaluation for TRCU Routine Comment: Physician Instructions: Reason For Exam: weakness; deconditioning 01/05/19 13:17 TCU [Evaluation for TRCU] Routine Comment: Physician Instructions: Reason For Exam: deconditioned Time Spent in preparation of Discharge (in minutes): 45 Diagnosis - Discharge Diagnosis (1) Sepsis Status: Acute Priority: Medium (2) UTI (urinary tract infection) Status: Acute Priority: Medium Hospital Course - Lab Results Lab Results: Micro Results 01/02/19 19:20 Blood-Venous Blood Culture - Preliminary NO GROWTH AFTER 48 HOURS 01/02/19 19:20 Blood-Venous Blood Culture - Preliminary NO GROWTH AFTER 48 HOURS 01/03/19 10:25 Naris MRSA Culture (Admit) - Final MRSA NOT DETECTED 01/02/19 20:20 Urine,Clean Catch Urine Culture - Final No Growth (<1,000 CFU/ML) Most Recent Lab Values WBC 5.7 10^3/uL (4.5-11.0) 01/05/19 07:45 RBC 4.19 10^6/uL (3.5-6.1) 01/05/19 07:45 Hgb 11.7 g/dL (12.0-16.0) L 01/05/19 07:45 Hct 38.0 % (36.0-48.0) 01/05/19 07:45 MCV 90.7 fl (80.0-105.0) 01/05/19 07:45 MCH 27.9 pg (25.0-35.0) 01/05/19 07:45 MCHC 30.8 g/dl (31.0-37.0) L 01/05/19 07:45 RDW 14.7 % (11.5-14.5) H 01/05/19 07:45 Plt Count 129 10^3/uL (120.0-450.0) 01/05/19 07:45 MPV 10.2 fl (7.0-11.0) 01/05/19 07:45 Neut % (Auto) 56.6 % (50.0-68.0) 01/05/19 07:45 Lymph % (Auto) 30.9 % (22.0-35.0) 01/05/19 07:45 [place] % (Auto) 7.9 % (1.0-6.0) H 01/05/19 07:45 Eos % (Auto) 4.2 % (1.5-5.0) 01/05/19 07:45 Baso % (Auto) 0.4 % (0.0-3.0) 01/05/19 07:45 Lymph # (Auto) 1.8 (1.2-3.4) 01/05/19 07:45 [place] # (Auto) 0.5 (0.1-0.6) 01/05/19 07:45 Eos # (Auto) 0.2 (0.0-0.7) 01/05/19 07:45 Baso # (Auto) 0.02 K/mm3 (0.0-2.0) 01/05/19 07:45 Absolute Neuts (auto) 3.21 (1.4-6.5) 01/05/19 07:45 pO2 86 mm/Hg (30-55) H 01/02/19 23:01 VBG pH 7.31 (7.32-7.43) L 01/02/19 23:01 VBG pCO2 54.0 (40-60) 01/02/19 23:01 VBG HCO3 27.2 mmol/l (21-28) 01/02/19 23:01 VBG Total CO2 28.9 mmol.L (22-28) H 01/02/19 23:01 VBG O2 Sat (Calc) 98.5 % (40-65) H 01/02/19 23:01 VBG Base Excess 0.0 mmol/L (0.0-2.0) 01/02/19 23:01 VBG Potassium 4.5 mmol/L (3.6-5.2) 01/02/19 23:01 Sodium 136.0 mmol/L (132-148) 01/02/19 23:01 Chloride 105.0 mmol/L (98-107) 01/02/19 23:01 Glucose 152 mg/dl (65-105) H 01/02/19 23:01 Lactate 1.4 mmol/L (0.7-2.1) 01/02/19 23:01 FiO2 21.0 % 01/02/19 23:01 Sodium 142 mmol/L (132-148) 01/05/19 07:45 Potassium 4.5 mmol/L (3.6-5.0) 01/05/19 07:45 Chloride 112 mmol/L (98-107) H 01/05/19 07:45 Carbon Dioxide 26 mmol/L (21-33) 01/05/19 07:45 Anion Gap 9 (10-20) L 01/05/19 07:45 BUN 13 mg/dL (7-21) 01/05/19 07:45 Creatinine 0.7 mg/dl (0.7-1.2) 01/05/19 07:45 Est GFR ( Amer) > 60 01/05/19 07:45 Est GFR (Non-Af Amer) > 60 01/05/19 07:45 POC Glucose (mg/dL) 195 mg/dL (65-110) H 01/05/19 11:03 Random Glucose 120 mg/dL (70-110) H 01/05/19 07:45 Calcium 7.8 mg/dL (8.4-10.5) L 01/05/19 07:45 Phosphorus 3.1 mg/dL (2.5-4.5) 01/05/19 07:45 Magnesium 1.9 mg/dL (1.7-2.2) 01/05/19 07:45 Total Bilirubin 0.6 mg/dL (0.2-1.3) 01/05/19 07:45 AST 15 U/L (14-36) 01/05/19 07:45 ALT 10 U/L (7-56) 01/05/19 07:45 Alkaline Phosphatase 46 U/L (38-126) 01/05/19 07:45 Total Protein 6.2 g/dL (5.8-8.3) 01/05/19 07:45 Albumin 3.0 g/dL (3.0-4.8) 01/05/19 07:45 Globulin 3.2 gm/dL 01/05/19 07:45 Albumin/Globulin Ratio 0.9 (1.1-1.8) L 01/05/19 07:45 Procalcitonin 0.18 NG/ML (0.19-0.49) L 01/03/19 06:46 Venous Blood Potassium 4.5 mmol/L (3.6-5.2) 01/02/19 23:01 Urine Color Yellow (YELLOW) 01/02/19 20:20 Urine Appearance Clear (CLEAR) 01/02/19 20:20 Urine pH 6.5 (4.7-8.0) 01/02/19 20:20 Ur Specific [place] 1.015 (1.005-1.035) 01/02/19 20:20 Urine Protein Trace mg/dL (<30 mg/dL) H 01/02/19 20:20 Urine Glucose (UA) Negative mg/dL (NEGATIVE) 01/02/19 20:20 Urine Ketones Negative mg/dL (NEGATIVE) 01/02/19 20:20 Urine Blood Trace-intact (NEGATIVE) H 01/02/19 20:20 Urine Nitrate Positive (NEGATIVE) H 01/02/19 20:20 Urine Bilirubin Negative (NEGATIVE) 01/02/19 20:20 Urine Urobilinogen 0.2 E.U./dL (<1 E.U./dL) 01/02/19 20:20 Ur Leukocyte Esterase Small Maxim/uL (NEGATIVE) H 01/02/19 20:20 Urine RBC 5 - 10 /hpf (0-2) H 01/02/19 20:20 Urine WBC 5 - 10 /hpf (0-6) H 01/02/19 20:20 Ur Epithelial Cells Many /hpf (0-5) H 01/02/19 20:20 Influenza Typ A,B (EIA) Negative for flu a/b (NEGATIVE) 01/03/19 07:00 - Hospital Course Hospital Course: PGY1 Discharge Summary and Hospital Course for Dr. Montana Patient is an 83 year old female with past medical history of a-fib on eliquis, HTN, CAD, T2DM, dementia, peripheral neuropathy who was brought to ED by daughter for lethargy and fever of 101 F for one day. Patient is a poor historian and was unable to recall why she was brought here. Patient was admitted for management of sepsis due to UTI and pneumonia one month prior. Please see Patient's chart for for a more complete summary and for details. Patient was found to be septic and CODE SEPSIS was called in the ED. Patient was SIRS positive: temp 101.3, HR 97, WBC 14.4. Please see ED report for details. Patient was subsequently admitted for sepsis secondary to UTI. UA showed positive nitrates, small leuk esterase, 5-10 WBCs. Empiric antibiotics with Zosyn was administered along with Vancomycin. Patient was also treated with fluids. ID was consulted (Dr. Lazaro). Blood cultures were unremarkable. Urine cultures were unremarkable. Patient was then kept on Zosyn prior to discharge. Upon discharge, Zosyn was discontinued and Vantin 200mg PO BID was started. Pl ease see progress notes and reports for details. On day of discharge, Patient there were no acute events overnight. Patient had no new complaints. PT was consulted and recommended rehab. Patient was hemodynamically stable and medically optimized for discharge to TCU for rehabilitation. Patient was provided with detailed instructions (provided both in writing and verbally to the level of the Patient's comprehension.) Patient both understands and agrees to all discharge instructions. Please see chart for more details. Discharge Medications: Acetaminophen (Tylenol 325mg Tab) 650 mg PO Q4H PRN PRN Reason: Fever >100.4 F Apixaban (Eliquis) 5 mg PO BID [facility] Last Admin: 01/04/19 17:15 Dose: 5 mg Aspirin (Ecotrin) 81 mg PO DAILY [facility] Last Admin: 01/04/19 10:32 Dose: 81 mg Dextrose (Dextrose 50% Inj) 0 ml IV STAT PRN PRN Reason: Hypoglycemia Protocol Donepezil HCl (Aricept) 10 mg PO HS [facility] Last Admin: 01/04/19 21:53 Dose: 10 mg Famotidine (Pepcid) 20 mg PO HS [facility] Last Admin: 01/04/19 21:53 Dose: 20 mg Sodium Chloride (Sodium Chloride 0.9%) 1,000 mls @ 75 mls/hr IV .[id number] [facility] Last Admin: 01/04/19 10:31 Dose: 75 mls/hr Dextrose (Dextrose 5% In Water 1000 Ml) 1,000 mls @ 0 mls/hr IV .Q0M PRN; Protocol PRN Reason: Hypoglycemia Protocol Insulin Human Regular (Humulin R High) 0 units SC ACHS [facility]; Protocol Last Admin: 01/04/19 17:14 Dose: 2 unit Losartan Potassium (Cozaar) 25 mg PO DAILY [facility] Last Admin: 01/04/19 10:31 Dose: 25 mg Memantine (Namenda) 10 mg PO BID [facility] Last Admin: 01/04/19 17:17 Dose: 10 mg Metoprolol Tartrate (Lopressor) 50 mg PO BID [facility] Last Admin: 01/04/19 17:15 Dose: Not Given Pregabalin (Lyrica) 50 mg PO BID [facility] Last Admin: 01/04/19 17:17 Dose: 50 mg Vantin 200mg PO BID #5 Patient seen and case discussed with Dr. Rubén Del Cid PGY1 Discharge Exam - Head Exam Head Exam: ATRAUMATIC, NORMAL INSPECTION, NORMOCEPHALIC - Eye Exam Eye Exam: EOMI, Normal appearance, PERRL Pupil Exam: NORMAL ACCOMODATION - ENT Exam ENT Exam: Mucous Membranes Moist - Respiratory Exam Respiratory Exam: Clear to PA & Lateral, NORMAL BREATHING PATTERN, UNREMARKABLE. absent: Wheezes - Cardiovascular Exam Cardiovascular Exam: REGULAR RHYTHM, +S1, +S2. absent: Diastolic murmur, Gallop, Rubs - GI/Abdominal Exam GI & Abdominal Exam: Normal Bowel Sounds, Soft, Unremarkable. absent: Tenderness - Extremities Exam Extremities exam: full ROM, normal capillary refill, normal inspection, pedal pulses present - Neurological Exam Neurological exam: Alert, CN II-XII Intact, Oriented x3, Reflexes Normal - Psychiatric Exam Psychiatric exam: Normal Affect, Normal Mood - Skin Skin Exam: Dry, Intact, Normal Color, Warm Discharge Plan - Discharge Medications Prescriptions: Cefpodoxime [Vantin] 200 mg PO BID #14 tab - Follow Up Plan Condition: GUARDED Disposition: REHAB FACILITY/REHAB UNIT Instructions: Sepsis in Adults, Urinary Tract Infection in Women (DC) Additional Instructions: Please follow-up with your Primary Care Physician, Dr. Nieves, within 3-5 days of being discharged from the hospital Please continue all home medications as prescribed You were prescribed 1 new medication: 1. Antibiotic: vantin 200mg PO BID #14 (take 1 tab by mouth twice daily for 7 days) If your symptoms return, please go to your nearest Emergency Department immediately <Neal Montana - Last Filed: 01/05/19 18:18> Provider - Provider Date of Admission: 01/02/19 21:05 Attending physician: Neal Montana MD Consults: 01/02/19 22:08 Infectious Disease Consult Stat Comment: Consulting Provider: Duy Johnson Consulting Physician: Duy Johnson Reason for Consult: sepsis 2/2 UTI 01/03/19 13:02 Social Work Referral Routine Comment: d/c plan Physician Instructions: Reason For Exam: assess 01/03/19 13:03 Nursing Referral for Palliative Care Routine Comment: vinny score Physician Instructions: Reason For Exam: assess 01/03/19 13:33 Case Management Referral Routine Comment: Physician Instructions: Reason For Exam: Reason for Referral: Discharge Planning Inpatient [employer] Core Measures Referral Routine Comment: sepsis and confusion Physician Instructions: Reason For Exam: eval Transition In Care/Readmission Reduction Routine Comment: sepsis and confusion Physician Instructions: Reason For Exam: assess 01/05/19 11:28 Evaluation for TRCU Routine Comment: Physician Instructions: Reason For Exam: weakness; deconditioning 01/05/19 13:17 TCU [Evaluation for TRCU] Routine Comment: Physician Instructions: Reason For Exam: deconditioned Hospital Course - Lab Results Lab Results: Micro Results 01/02/19 19:20 Blood-Venous Blood Culture - Preliminary NO GROWTH AFTER 48 HOURS 01/02/19 19:20 Blood-Venous Blood Culture - Preliminary NO GROWTH AFTER 48 HOURS 01/03/19 10:25 Naris MRSA Culture (Admit) - Final MRSA NOT DETECTED 01/02/19 20:20 Urine,Clean Catch Urine Culture - Final No Growth (<1,000 CFU/ML) Most Recent Lab Values WBC 5.7 10^3/uL (4.5-11.0) 01/05/19 07:45 RBC 4.19 10^6/uL (3.5-6.1) 01/05/19 07:45 Hgb 11.7 g/dL (12.0-16.0) L 01/05/19 07:45 Hct 38.0 % (36.0-48.0) 01/05/19 07:45 MCV 90.7 fl (80.0-105.0) 01/05/19 07:45 MCH 27.9 pg (25.0-35.0) 01/05/19 07:45 MCHC 30.8 g/dl (31.0-37.0) L 01/05/19 07:45 RDW 14.7 % (11.5-14.5) H 01/05/19 07:45 Plt Count 129 10^3/uL (120.0-450.0) 01/05/19 07:45 MPV 10.2 fl (7.0-11.0) 01/05/19 07:45 Neut % (Auto) 56.6 % (50.0-68.0) 01/05/19 07:45 Lymph % (Auto) 30.9 % (22.0-35.0) 01/05/19 07:45 [place] % (Auto) 7.9 % (1.0-6.0) H 01/05/19 07:45 Eos % (Auto) 4.2 % (1.5-5.0) 01/05/19 07:45 Baso % (Auto) 0.4 % (0.0-3.0) 01/05/19 07:45 Lymph # (Auto) 1.8 (1.2-3.4) 01/05/19 07:45 [place] # (Auto) 0.5 (0.1-0.6) 01/05/19 07:45 Eos # (Auto) 0.2 (0.0-0.7) 01/05/19 07:45 Baso # (Auto) 0.02 K/mm3 (0.0-2.0) 01/05/19 07:45 Absolute Neuts (auto) 3.21 (1.4-6.5) 01/05/19 07:45 pO2 86 mm/Hg (30-55) H 01/02/19 23:01 VBG pH 7.31 (7.32-7.43) L 01/02/19 23:01 VBG pCO2 54.0 (40-60) 01/02/19 23:01 VBG HCO3 27.2 mmol/l (21-28) 01/02/19 23:01 VBG Total CO2 28.9 mmol.L (22-28) H 01/02/19 23:01 VBG O2 Sat (Calc) 98.5 % (40-65) H 01/02/19 23:01 VBG Base Excess 0.0 mmol/L (0.0-2.0) 01/02/19 23:01 VBG Potassium 4.5 mmol/L (3.6-5.2) 01/02/19 23:01 Sodium 136.0 mmol/L (132-148) 01/02/19 23:01 Chloride 105.0 mmol/L (98-107) 01/02/19 23:01 Glucose 152 mg/dl (65-105) H 01/02/19 23:01 Lactate 1.4 mmol/L (0.7-2.1) 01/02/19 23:01 FiO2 21.0 % 01/02/19 23:01 Sodium 142 mmol/L (132-148) 01/05/19 07:45 Potassium 4.5 mmol/L (3.6-5.0) 01/05/19 07:45 Chloride 112 mmol/L (98-107) H 01/05/19 07:45 Carbon Dioxide 26 mmol/L (21-33) 01/05/19 07:45 Anion Gap 9 (10-20) L 01/05/19 07:45 BUN 13 mg/dL (7-21) 01/05/19 07:45 Creatinine 0.7 mg/dl (0.7-1.2) 01/05/19 07:45 Est GFR ( Amer) > 60 01/05/19 07:45 Est GFR (Non-Af Amer) > 60 01/05/19 07:45 POC Glucose (mg/dL) 106 mg/dL (65-110) 01/05/19 16:32 Random Glucose 120 mg/dL (70-110) H 01/05/19 07:45 Calcium 7.8 mg/dL (8.4-10.5) L 01/05/19 07:45 Phosphorus 3.1 mg/dL (2.5-4.5) 01/05/19 07:45 Magnesium 1.9 mg/dL (1.7-2.2) 01/05/19 07:45 Total Bilirubin 0.6 mg/dL (0.2-1.3) 01/05/19 07:45 AST 15 U/L (14-36) 01/05/19 07:45 ALT 10 U/L (7-56) 01/05/19 07:45 Alkaline Phosphatase 46 U/L (38-126) 01/05/19 07:45 Total Protein 6.2 g/dL (5.8-8.3) 01/05/19 07:45 Albumin 3.0 g/dL (3.0-4.8) 01/05/19 07:45 Globulin 3.2 gm/dL 01/05/19 07:45 Albumin/Globulin Ratio 0.9 (1.1-1.8) L 01/05/19 07:45 Procalcitonin 0.18 NG/ML (0.19-0.49) L 01/03/19 06:46 Venous Blood Potassium 4.5 mmol/L (3.6-5.2) 01/02/19 23:01 Urine Color Yellow (YELLOW) 01/02/19 20:20 Urine Appearance Clear (CLEAR) 01/02/19 20:20 Urine pH 6.5 (4.7-8.0) 01/02/19 20:20 Ur Specific [place] 1.015 (1.005-1.035) 01/02/19 20:20 Urine Protein Trace mg/dL (<30 mg/dL) H 01/02/19 20:20 Urine Glucose (UA) Negative mg/dL (NEGATIVE) 01/02/19 20:20 Urine Ketones Negative mg/dL (NEGATIVE) 01/02/19 20:20 Urine Blood Trace-intact (NEGATIVE) H 01/02/19 20:20 Urine Nitrate Positive (NEGATIVE) H 01/02/19 20:20 Urine Bilirubin Negative (NEGATIVE) 01/02/19 20:20 Urine Urobilinogen 0.2 E.U./dL (<1 E.U./dL) 02/12/19 20:20 Ur Leukocyte Esterase Small Maxim/uL (NEGATIVE) H 01/02/19 20:20 Urine RBC 5 - 10 /hpf (0-2) H 01/02/19 20:20 Urine WBC 5 - 10 /hpf (0-6) H 01/02/19 20:20 Ur Epithelial Cells Many /hpf (0-5) H 01/02/19 20:20 Influenza Typ A,B (EIA) Negative for flu a/b (NEGATIVE) 01/03/19 07:00 Attending/Attestation - Attestation I have personally seen and examined this patient.: Yes I have fully participated in the care of the patient.: Yes I have reviewed all pertinent clinical information, including history, physical exam and plan: Yes Notes (Text): 01/05/19 18:16 83 year old female with past medical history of afib on eliquis, hypertension, CAD, diabetes and demential who presented with sepsis secondary to UTI. Also found to have LLL infiltate on CT scan. Symptoms improved with antibiotics. Cultures are negative to date. CT shows divertuculosis without diverticulitis. PT evaluation was appreciated; recommended TCU for physical therapy and deconditioned state. Patient lives alone. Discussed with daughter who is agreeable to TCU. Patient will be discharged today to TCU. Continue with physical therapy. Continue with antibiotics. Neal Montana MD Hospitalist.
[2019-01-05] MEDS ORDERED: Cefpodoxime (Vantin) 200 mg Tab PO SCH (22:00)
== END 2019-01-05 15:45 | DRG 871 ==
LOC: ED 18:27 → ERH 21:05 → 5RSO 01-03 17:30
PROVIDERS: ADMIT Internal Medicine; ATTEND Internal Medicine
DX: A41.9 Sepsis, unspecified organism (principal); J18.9 Pneumonia, unspecified organism; N39.0 Urinary tract infection, site not specified; I25.10 Atherosclerotic heart disease of native coronary artery without angina pectoris; I10 Essential (primary) hypertension; I48.2 Chronic atrial fibrillation; E11.42 Type 2 diabetes mellitus with diabetic polyneuropathy; G30.9 Alzheimer's disease, unspecified; F02.80 Dementia in other diseases classified elsewhere, unspecified severity, without behavioral disturbance, psychotic disturbance, mood disturbance, and anxiety; K57.30 Diverticulosis of large intestine without perforation or abscess without bleeding; Z79.84 Long term (current) use of oral hypoglycemic drugs; Z79.82 Long term (current) use of aspirin; Z79.02 Long term (current) use of antithrombotics/antiplatelets; Z87.891 Personal history of nicotine dependence; Z95.1 Presence of aortocoronary bypass graft; Z95.5 Presence of coronary angioplasty implant and graft

== ENCOUNTER 2019-01-05 15:30 | Inpatient (IN) | payer OTHER ==
[2019-01-05] MEDS ORDERED: Dextrose 50% SYRINGE Inj (50 ml) IV PRN (16:06)
[2019-01-05] MEDS: Insulin Reg-HIGH-Coverage SC SCH ×2 (17:29→21:30)
[2019-01-05] MEDS ORDERED: Pneumococcal 23-Valent Vaccine IM ONE (21:09)
[2019-01-05] MEDS ORDERED: Influenza Vaccine 60 mcg/0.5 mL SYR (4YR UP) IM ONE (21:09)
[2019-01-05] MEDS: Cefpodoxime (Vantin) 200 mg Tab PO SCH (21:22)
[2019-01-06] MEDS: Insulin Reg-HIGH-Coverage SC SCH ×4 (06:43→22:21)
--- NOTE | 2019-01-06 09:39 | CP.PCM.HP ---
<Dima Wilkinson - Last Filed: 01/06/19 10:48> History of Present Illness - History of Present Illness History of Present Illness: Dima Wilkinson PHY2 H&P for Hospitalist Service 83 year old female with past medical history of afib on eliquis, hypertension, CAD, diabetes and dementia who presented initially with sepsis secondary to UTI. Patient was started on antibiotics with symptoms improving. Cultures have been negative to date. Patient has been transferred to TCU for therapy for deconditioning. Patient will continue will continue receiving antibiotics. Patient currently denies any chest pain, SOB, fever, chills, dysuria, pyuria, or any other complaints at this time. PMH: afib on eliquis, HTN, CAD,T2DM, dementia, peripheral neuropathy PSH: CABG SHx: former smoker, denies alcohol or illicit drug use FHx: denies Allergies: NKDA PMD: Dr. Nieves Present on Admission - Present on Admission Any Indicators Present on Admission: No Review of Systems - Constitutional Constitutional: absent: Chills, Fever, Headache, Weakness - Cardiovascular Cardiovascular: absent: Chest Pain, Dyspnea - Respiratory Respiratory: absent: Cough, Dyspnea - Gastrointestinal Gastrointestinal: absent: Nausea, Vomiting - Genitourinary Genitourinary: absent: Change in Urinary Stream, Difficulty Urinating, Dysuria, Flank Pain, Hematuria, Pyuria, Urinary Incontinence - Musculoskeletal Musculoskeletal: absent: Numbness, Radiating Pain into Limb, Tingling - Neurological Neurological: absent: Syncope, Weakness Past Patient History - Infectious Disease Hx of Infectious Diseases: None - Past Social History Smoking Status: Never Smoked - CARDIAC Hx Cardiac Disorders: Yes (AFIB) Hx Hypertension: Yes - PULMONARY Hx Respiratory Disorders: Yes Hx Respiratory Tract Infection: Yes (Current 10/19/18.) - NEUROLOGICAL Hx Neurological Disorder: Yes (Peripheral Neuropathy) Hx Dizziness: Yes (Vertigo) - HEENT Hx HEENT Problems: No (Denied by pt.) - RENAL Hx Chronic Kidney Disease: No (Denied by pt.) - ENDOCRINE/METABOLIC Hx Diabetes Mellitus Type 2: Yes - HEMATOLOGICAL/ONCOLOGICAL Hx Blood Disorders: No (Denied by pt.) - INTEGUMENTARY Hx Dermatological Problems: No (Denied by pt.) - MUSCULOSKELETAL/RHEUMATOLOGICAL Hx Falls: Yes (past) - GASTROINTESTINAL Hx Gastrointestinal Disorders: Yes (GERD,DIVERTICULOSIS OF SIGMOID COLON,) - GENITOURINARY/GYNECOLOGICAL Hx Genitourinary Disorders: Yes (UTI) Hx Reproductive Disorders: No - PSYCHIATRIC Hx Psychophysiologic Disorder: Yes Hx Anxiety: Yes Hx Depression: Yes Hx Substance Use: No - SURGICAL HISTORY Hx Cardiac Catheterization: Yes (Stent x 1) Hx Coronary Stent: Yes Hx Open Heart Surgery: Yes - ANESTHESIA Hx Anesthesia Reactions: No Hx Malignant Hyperthermia: No Meds Allergies/Adverse Reactions: Allergies Allergy/AdvReac Type Severity Reaction Status Date / Time No Known Allergies Allergy Verified 01/05/19 18:25 Physical Exam - Constitutional Appears: Non-toxic, No Acute Distress - Head Exam Head Exam: ATRAUMATIC, NORMAL INSPECTION, NORMOCEPHALIC - Eye Exam Eye Exam: Normal appearance - ENT Exam ENT Exam: Mucous Membranes Moist - Respiratory Exam Respiratory Exam: NORMAL BREATHING PATTERN - Cardiovascular Exam Cardiovascular Exam: +S1, +S2 - GI/Abdominal Exam GI & Abdominal Exam: Soft - Neurological Exam Neurological exam: Alert, CN II-XII Intact, Oriented x3 Results - Vital Signs Recent Vital Signs: Last Vital Signs Temp 98 F 01/05/19 20:58 Pulse 76 01/06/19 06:14 Resp 18 01/05/19 20:58 BP 119/68 01/06/19 08:13 Pulse Ox 97 01/05/19 16:29 - Labs Labs: Laboratory Results - last 24 hr 01/05/19 01/06/19 21:09 06:08 POC Glucose (mg/dL) 146 H 114 H Assessment & Plan - Assessment and Plan (Free Text) Assessment: 83 year old female with past medical history of afib on eliquis, hypertension, CAD, diabetes and dementia who presented initially with sepsis secondary to UTI. Sepsis resolved, she is receiving PO antibiotics for UTI and transferred to TCU for rehab. Plan: UTI -initial sepsis resolved -Blood cultures negative -afebrile -continue Vantin PO Atrial fibrillation -EKG: atrial fibrillation with competing junctional pacemaker with HR: 93 -Continue with metoprolol 50 mg BID for rate control -Anticoagulation with home eliquis 5 mg BID Alzheimer's Dementia -Continue with aricept, namenda Coronary Artery Disease -Continue with home aspirin, lopressor, cozaar -Heart healthy diet Diabetes Mellitus Type II with peripheral neuropathy -Continue with High SSI -Continue with lyrica 50 mg BID -Accuchecks ACHS GI prophylaxis: pepcid 20 mg daily DVT prophylaxis: eliquis 5 mg BID Continue with Physical Therapy <Neal Montana - Last Filed: 01/06/19 11:31> Physical Exam - Respiratory Exam Respiratory Exam: Clear to Auscultation Bilateral - Cardiovascular Exam Cardiovascular Exam: Irregular Rhythm - GI/Abdominal Exam GI & Abdominal Exam: Normal Bowel Sounds. absent: Organomegaly, Tenderness - Extremities Exam Extremities exam: Positive for: normal inspection - Psychiatric Exam Psychiatric exam: Normal Mood Results - Vital Signs Recent Vital Signs: Last Vital Signs Temp 98 F 01/05/19 20:58 Pulse 63 01/06/19 10:17 Resp 18 01/05/19 20:58 BP 151/59 H 01/06/19 10:17 Pulse Ox 97 01/05/19 16:29 - Labs Labs: Laboratory Results - last 24 hr 01/05/19 01/06/19 01/06/19 21:09 06:08 11:18 POC Glucose (mg/dL) 146 H 114 H 149 H Attending/Attestation - Attestation I have personally seen and examined this patient.: Yes I have fully participated in the care of the patient.: Yes I have reviewed all pertinent clinical information: Yes Notes (Text): 01/06/19 11:28 83 year old female with past medical history of afib on eliquis, CAD, hypertension, diabetes and dementia who presented initially with sepsis secondary to UTI. Symptoms improved with antibiotics which are now switched to po. Cultures were negative to date. She was transferred to TCU for physical therapy. Continue with PT as tolerated. Continue with po antibiotics. She is on eliquis and metoprolol for afib. She is also on cozaar for hypertension. Neal Montana MD Hospitalist.
[2019-01-06] MEDS: Cefpodoxime (Vantin) 200 mg Tab PO SCH ×2 (10:14→21:10)
[2019-01-07] MEDS: Insulin Reg-HIGH-Coverage SC SCH ×4 (06:49→22:01)
[2019-01-07] MEDS: Cefpodoxime (Vantin) 200 mg Tab PO SCH ×2 (09:57→21:08)
[2019-01-08] MEDS: Insulin Reg-HIGH-Coverage SC SCH ×4 (06:48→21:26)
[2019-01-08] MEDS: Cefpodoxime (Vantin) 200 mg Tab PO SCH ×2 (11:24→21:27)
--- NOTE | 2019-01-08 12:16 | CP.PCM.PN ---
<Cesar Camacho - Last Filed: 01/08/19 12:18> Subjective - Date & Time of Evaluation Date of Evaluation: 01/08/19 Time of Evaluation: 12:15 - Subjective Subjective: Internal Medicine Progress Note: Patient seen and assessed at bedside in TCU. No acute events noted overnight. Patient denies any complaints at this time and further 12 point ROS is unremarkable. Objective - Vital Signs/Intake and Output Vital Signs (last 24 hours): Temp Pulse Resp BP Pulse Ox 97.4 F L 71 20 142/74 95 01/07/19 16:45 01/08/19 11:23 01/07/19 16:45 01/08/19 11:23 01/07/19 16:45 Intake and Output: 01/08/19 01/08/19 06:59 18:59 Intake Total 420 Balance 420 - Medications Medications: Current Medications Acetaminophen (Tylenol 325mg Tab) 650 mg PO Q4H PRN; Protocol PRN Reason: Fever >100.4 F Apixaban (Eliquis) 5 mg PO BID MAK; Protocol Last Admin: 01/08/19 11:23 Dose: 5 mg Aspirin (Ecotrin) 81 mg PO 0800 MAK; Protocol Last Admin: 01/08/19 08:05 Dose: 81 mg Cefpodoxime Proxetil (Vantin) 200 mg PO Q12H MAK; Protocol Stop: 01/12/19 22:01 Last Admin: 01/08/19 11:24 Dose: 200 mg Dextrose (Dextrose 50% Inj) 0 ml IV STAT PRN; Protocol PRN Reason: Hypoglycemia Protocol Donepezil HCl (Aricept) 10 mg PO HS MAK; Protocol Last Admin: 01/07/19 21:08 Dose: 10 mg Famotidine (Pepcid) 20 mg PO HS MAK; Protocol Last Admin: 01/07/19 21:08 Dose: 20 mg Dextrose (Dextrose 5% In Water 1000 Ml) 1,000 mls @ 0 mls/hr IV .Q0M PRN; Protocol PRN Reason: Hypoglycemia Protocol Insulin Human Regular (Humulin R High) 0 units SC ACHS MAK; Protocol Last Admin: 01/08/19 11:24 Dose: 2 units Losartan Potassium (Cozaar) 25 mg PO DAILY [facility]; Protocol Last Admin: 01/08/19 11:23 Dose: 25 mg Memantine (Namenda) 10 mg PO BID [facility]; Protocol Last Admin: 01/08/19 11:24 Dose: 10 mg Metoprolol Tartrate (Lopressor) 50 mg PO 0800,1700 [facility]; Protocol Last Admin: 01/08/19 08:05 Dose: 50 mg Pregabalin (Lyrica) 50 mg PO BID [facility] Last Admin: 01/08/19 11:24 Dose: 50 mg - Constitutional Appears: Non-toxic, No Acute Distress - Head Exam Head Exam: ATRAUMATIC, NORMOCEPHALIC - Eye Exam Eye Exam: EOMI, Normal appearance, PERRL. absent: Conjunctival injection, Nystagmus, Periorbital swelling, Periorbital tenderness, Scleral icterus Pupil Exam: NORMAL ACCOMODATION, PERRL - ENT Exam ENT Exam: Mucous Membranes Moist, Normal Exam - Neck Exam Neck Exam: Full ROM, Normal Inspection. absent: Lymphadenopathy - Respiratory Exam Respiratory Exam: Clear to Ausculation Bilateral, NORMAL BREATHING PATTERN - Cardiovascular Exam Cardiovascular Exam: Irregular Rhythm - GI/Abdominal Exam GI & Abdominal Exam: Soft, Normal Bowel Sounds. absent: Tenderness - Extremities Exam Extremities Exam: absent: Calf Tenderness - Back Exam Back Exam: absent: CVA tenderness (L), CVA tenderness (R) - Neurological Exam Neurological Exam: Alert, Awake, Oriented x3 - Psychiatric Exam Psychiatric exam: Normal Affect, Normal Mood - Skin Skin Exam: Dry, Intact, Normal Color, Warm Assessment and Plan - Assessment and Plan (Free Text) Assessment: 83 year old female with a past medical history significant for atrial fibrillation on Eliquis, HTN, CAD, DM2 and dementia who presented initially with sepsis secondary to UTI and is now in TCU for rehabilitation. Plan: 1. Sepsis secondary to UTI -Resolved -Continue Vantin PO (Day 3/7) 2. History of Atrial Fibrillation -Continue home Metoprolol -Continue home Eliquis 3. History of Alzheimer's Dementia -Continue home Aricept and Namenda 4. History of CAD -Continue home daily low dose ASA 5. History of HTN -Continue home Cozaar 6. History of DM2 with Diabetic Neuropathy -Continue SSI-H and Accuchecks ACHS -Continue home Lyrica GI Prophylaxis: Pepcid DVT Prophylaxis: Eliquis Diet: Heart Healthy/Carbohydrate Consistent Code Status: Full Code Disposition: Continue physical therapy for further physical rehabilitation and complete course of PO antibiotics. Patient seen and case discussed with attending, Dr. Montana. Cesarlacho Camacho PGY2 <Neal Montana - Last Filed: 01/08/19 14:57> Objective - Vital Signs/Intake and Output Vital Signs (last 24 hours): Temp Pulse Resp BP Pulse Ox 97.4 F L 71 20 142/74 95 01/07/19 16:45 01/08/19 11:23 01/07/19 16:45 01/08/19 11:23 01/07/19 16:45 Intake and Output: 01/08/19 01/08/19 06:59 18:59 Intake Total 420 Balance 420 - Medications Medications: Current Medications Acetaminophen (Tylenol 325mg Tab) 650 mg PO Q4H PRN; Protocol PRN Reason: Fever >100.4 F Apixaban (Eliquis) 5 mg PO BID MAK; Protocol Last Admin: 01/08/19 11:23 Dose: 5 mg Aspirin (Ecotrin) 81 mg PO 0800 MAK; Protocol Last Admin: 01/08/19 08:05 Dose: 81 mg Cefpodoxime Proxetil (Vantin) 200 mg PO Q12H MAK; Protocol Stop: 01/12/19 22:01 Last Admin: 01/08/19 11:24 Dose: 200 mg Dextrose (Dextrose 50% Inj) 0 ml IV STAT PRN; Protocol PRN Reason: Hypoglycemia Protocol Donepezil HCl (Aricept) 10 mg PO HS MAK; Protocol Last Admin: 01/07/19 21:08 Dose: 10 mg Famotidine (Pepcid) 20 mg PO HS MAK; Protocol Last Admin: 01/07/19 21:08 Dose: 20 mg Dextrose (Dextrose 5% In Water 1000 Ml) 1,000 mls @ 0 mls/hr IV .Q0M PRN; Protocol PRN Reason: Hypoglycemia Protocol Insulin Human Regular (Humulin R High) 0 units SC ACHS MAK; Protocol Last Admin: 01/08/19 11:24 Dose: 2 units Losartan Potassium (Cozaar) 25 mg PO DAILY [facility]; Protocol Last Admin: 01/08/19 11:23 Dose: 25 mg Memantine (Namenda) 10 mg PO BID MAK; Protocol Last Admin: 01/08/19 11:24 Dose: 10 mg Metoprolol Tartrate (Lopressor) 50 mg PO 0800,1700 MAK; Protocol Last Admin: 01/08/19 08:05 Dose: 50 mg Pregabalin (Lyrica) 50 mg PO BID [facility] Last Admin: 01/08/19 11:24 Dose: 50 mg Attending/Attestation - Attestation I have personally seen and examined this patient.: Yes I have fully participated in the care of the patient.: Yes I have reviewed all pertinent clinical information, including history, physical exam and plan: Yes Notes (Text): 01/08/19 14:56 83 year old female with past medical history of afib on eliquis, CAD, hypertension, diabetes and dementia who presented initially with sepsis secondary to UTI. Symptoms improved with antibiotics which are now switched to po. Cultures were negative to date. She is currently in TCU for physical therapy which she is tolerating well. Continue with po antibiotics. She is on eliquis and metoprolol for afib. She is also on cozaar for hypertension. Neal Montana MD Hospitalist.
[2019-01-09] MEDS: Insulin Reg-HIGH-Coverage SC SCH ×4 (06:38→21:36)
[2019-01-09] MEDS: Cefpodoxime (Vantin) 200 mg Tab PO SCH ×2 (09:45→21:36)
[2019-01-10] MEDS: Insulin Reg-HIGH-Coverage SC SCH ×4 (06:49→21:41)
[2019-01-10] MEDS: Cefpodoxime (Vantin) 200 mg Tab PO SCH ×2 (10:51→21:41)
--- NOTE | 2019-01-10 13:11 | CP.PCM.PN ---
<Tarun Del Cid - Last Filed: 01/10/19 16:12> Subjective - Date & Time of Evaluation Date of Evaluation: 01/10/19 Time of Evaluation: 13:11 - Subjective Subjective: PGY1 Medicine Progress Note for Dr. Montana Patient seen and assessed at bedside in TCU. No acute events noted overnight. Patient denies any complaints at this time and further 12 point ROS is unremarkable. Objective - Vital Signs/Intake and Output Vital Signs (last 24 hours): Temp Pulse Resp BP Pulse Ox 97.5 F L 66 20 142/67 90 L 01/09/19 16:00 01/10/19 10:49 01/09/19 16:00 01/10/19 10:49 01/09/19 16:00 - Medications Medications: Current Medications Acetaminophen (Tylenol 325mg Tab) 650 mg PO Q4H PRN; Protocol PRN Reason: Fever >100.4 F Apixaban (Eliquis) 5 mg PO BID MAK; Protocol Last Admin: 01/10/19 10:50 Dose: 5 mg Aspirin (Ecotrin) 81 mg PO 0800 MAK; Protocol Last Admin: 01/10/19 08:07 Dose: 81 mg Cefpodoxime Proxetil (Vantin) 200 mg PO Q12H MAK; Protocol Stop: 01/12/19 22:01 Last Admin: 01/10/19 10:51 Dose: 200 mg Dextrose (Dextrose 50% Inj) 0 ml IV STAT PRN; Protocol PRN Reason: Hypoglycemia Protocol Donepezil HCl (Aricept) 10 mg PO HS MAK; Protocol Last Admin: 01/09/19 21:36 Dose: 10 mg Famotidine (Pepcid) 20 mg PO HS MAK; Protocol Last Admin: 01/09/19 21:36 Dose: 20 mg Dextrose (Dextrose 5% In Water 1000 Ml) 1,000 mls @ 0 mls/hr IV .Q0M PRN; Protocol PRN Reason: Hypoglycemia Protocol Insulin Human Regular (Humulin R High) 0 units SC ACHS [facility]; Protocol Last Admin: 01/10/19 06:49 Dose: Not Given Losartan Potassium (Cozaar) 25 mg PO DAILY [facility]; Protocol Last Admin: 01/10/19 10:49 Dose: 25 mg Memantine (Namenda) 10 mg PO BID MAK; Protocol Last Admin: 01/10/19 10:50 Dose: 10 mg Metoprolol Tartrate (Lopressor) 50 mg PO 0800,1700 [facility]; Protocol Last Admin: 01/10/19 08:08 Dose: 50 mg Pregabalin (Lyrica) 50 mg PO BID [facility] Last Admin: 01/10/19 10:54 Dose: 50 mg - Additional Findings Additional findings: - Constitutional Appears: Non-toxic, No Acute Distress - Head Exam Head Exam: ATRAUMATIC, NORMOCEPHALIC - Eye Exam Eye Exam: EOMI, Normal appearance, PERRL. absent: Conjunctival injection, Nystagmus, Periorbital swelling, Periorbital tenderness, Scleral icterus Pupil Exam: NORMAL ACCOMODATION, PERRL - ENT Exam ENT Exam: Mucous Membranes Moist, Normal Exam - Neck Exam Neck Exam: Full ROM, Normal Inspection. absent: Lymphadenopathy - Respiratory Exam Respiratory Exam: Clear to Ausculation Bilateral, NORMAL BREATHING PATTERN - Cardiovascular Exam Cardiovascular Exam: Irregular Rhythm - GI/Abdominal Exam GI & Abdominal Exam: Soft, Normal Bowel Sounds. absent: Tenderness - Extremities Exam Extremities Exam: absent: Calf Tenderness - Back Exam Back Exam: absent: CVA tenderness (L), CVA tenderness (R) - Neurological Exam Neurological Exam: Alert, Awake, Oriented x3 - Psychiatric Exam Psychiatric exam: Normal Affect, Normal Mood - Skin Skin Exam: Dry, Intact, Normal Color, Warm Assessment and Plan - Assessment and Plan (Free Text) Assessment: 83 year old female with a past medical history significant for atrial fibrillation on Eliquis, HTN, CAD, DM2 and dementia who presented initially with sepsis secondary to UTI and is now in TCU for rehabilitation. Plan: Sepsis secondary to UTI - Resolved - Continue Vantin PO (Day 5/7) History of Atrial Fibrillation - Continue home Metoprolol - Continue home Eliquis History of Alzheimer's Dementia - Continue home Aricept and Namenda History of CAD - Continue home daily low dose ASA History of HTN - Continue home Cozaar History of DM2 with Diabetic Neuropathy - Continue SSI-H and Accuchecks ACHS - Continue home Lyrica Ppx - GI: Pepcid - DVT: Eliquis - Diet: Heart Healthy/Carbohydrate Consistent - Code Status: Full Code Disposition: Continue physical therapy for further physical rehabilitation and complete course of PO antibiotics. Patient seen and case discussed with attending, Dr. Rubénzvi. Tarun Del Cid <Neal Montana - Last Filed: 01/10/19 18:11> Objective - Vital Signs/Intake and Output Vital Signs (last 24 hours): Temp Pulse Resp BP Pulse Ox 97.5 F L 73 18 150/97 H 91 L 01/10/19 10:00 01/10/19 17:51 01/10/19 10:00 01/10/19 17:51 01/10/19 16:23 - Medications Medications: Current Medications Acetaminophen (Tylenol 325mg Tab) 650 mg PO Q4H PRN; Protocol PRN Reason: Fever >100.4 F Apixaban (Eliquis) 5 mg PO BID MAK; Protocol Last Admin: 01/10/19 17:50 Dose: 5 mg Aspirin (Ecotrin) 81 mg PO 0800 MAK; Protocol Last Admin: 01/10/19 08:07 Dose: 81 mg Cefpodoxime Proxetil (Vantin) 200 mg PO Q12H MAK; Protocol Stop: 01/12/19 22:01 Last Admin: 01/10/19 10:51 Dose: 200 mg Dextrose (Dextrose 50% Inj) 0 ml IV STAT PRN; Protocol PRN Reason: Hypoglycemia Protocol Donepezil HCl (Aricept) 10 mg PO HS MAK; Protocol Last Admin: 01/09/19 21:36 Dose: 10 mg Famotidine (Pepcid) 20 mg PO HS MAK; Protocol Last Admin: 01/09/19 21:36 Dose: 20 mg Dextrose (Dextrose 5% In Water 1000 Ml) 1,000 mls @ 0 mls/hr IV .Q0M PRN; Protocol PRN Reason: Hypoglycemia Protocol Insulin Human Regular (Humulin R High) 0 units SC ACHS [facility]; Protocol Last Admin: 01/10/19 17:30 Dose: Not Given Losartan Potassium (Cozaar) 25 mg PO DAILY [facility]; Protocol Last Admin: 01/10/19 10:49 Dose: 25 mg Memantine (Namenda) 10 mg PO BID [facility]; Protocol Last Admin: 01/10/19 17:52 Dose: 10 mg Metoprolol Tartrate (Lopressor) 50 mg PO 0800,1700 [facility]K; Protocol Last Admin: 01/10/19 17:51 Dose: 50 mg Pregabalin (Lyrica) 50 mg PO BID [facility] Last Admin: 01/10/19 17:52 Dose: 50 mg Attending/Attestation - Attestation I have personally seen and examined this patient.: Yes I have fully participated in the care of the patient.: Yes I have reviewed all pertinent clinical information, including history, physical exam and plan: Yes Notes (Text): 01/10/19 18:10 83 year old female with past medical history of afib on eliquis, CAD, hypertension, diabetes and dementia who presented initially with sepsis secondary to UTI. Continue with po antibiotics. Cultures were negative to date. Continue with physical therapy while in TCU. She is on eliquis and metoprolol for afib. She is also on cozaar for hypertension. Neal Montana MD Hospitalist.
[2019-01-11] MEDS: Insulin Reg-HIGH-Coverage SC SCH ×4 (07:12→21:42)
[2019-01-11] MEDS: Cefpodoxime (Vantin) 200 mg Tab PO SCH ×2 (11:00→21:42)
[2019-01-12] MEDS: Insulin Reg-HIGH-Coverage SC SCH ×4 (07:06→21:34)
[2019-01-12] MEDS: Cefpodoxime (Vantin) 200 mg Tab PO SCH ×2 (09:58→21:09)
--- NOTE | 2019-01-12 10:07 | CP.PCM.PN ---
<Tarun Del Cid - Last Filed: 01/12/19 14:00> Subjective - Date & Time of Evaluation Date of Evaluation: 01/12/19 Time of Evaluation: 10:04 - Subjective Subjective: PGY1 Medicine Progress Note for Dr. Sarmiento Patient seen and assessed at bedside in TCU. No acute events noted overnight. Patient denies any complaints at this time and further 12 point ROS is unremarkable. Objective - Vital Signs/Intake and Output Vital Signs (last 24 hours): Temp Pulse Resp BP Pulse Ox 97.5 F L 65 18 134/75 96 01/11/19 16:00 01/12/19 09:58 01/11/19 16:00 01/12/19 09:58 01/11/19 17:39 - Medications Medications: Current Medications Acetaminophen (Tylenol 325mg Tab) 650 mg PO Q4H PRN; Protocol PRN Reason: Fever >100.4 F Apixaban (Eliquis) 5 mg PO BID MAK; Protocol Last Admin: 01/12/19 09:58 Dose: 5 mg Aspirin (Ecotrin) 81 mg PO 0800 MAK; Protocol Last Admin: 01/12/19 08:45 Dose: 81 mg Cefpodoxime Proxetil (Vantin) 200 mg PO Q12H MAK; Protocol Stop: 01/12/19 22:01 Last Admin: 01/12/19 09:58 Dose: 200 mg Dextrose (Dextrose 50% Inj) 0 ml IV STAT PRN; Protocol PRN Reason: Hypoglycemia Protocol Donepezil HCl (Aricept) 10 mg PO HS MAK; Protocol Last Admin: 01/11/19 21:43 Dose: 10 mg Famotidine (Pepcid) 20 mg PO HS MAK; Protocol Last Admin: 01/11/19 21:42 Dose: 20 mg Dextrose (Dextrose 5% In Water 1000 Ml) 1,000 mls @ 0 mls/hr IV .Q0M PRN; Protocol PRN Reason: Hypoglycemia Protocol Insulin Human Regular (Humulin R High) 0 units SC ACHS [facility]; Protocol Last Admin: 01/12/19 07:06 Dose: Not Given Losartan Potassium (Cozaar) 25 mg PO DAILY [facility]; Protocol Last Admin: 01/12/19 09:58 Dose: 25 mg Memantine (Namenda) 10 mg PO BID [facility]; Protocol Last Admin: 01/12/19 09:58 Dose: 10 mg Metoprolol Tartrate (Lopressor) 50 mg PO 0800,1700 [facility]; Protocol Last Admin: 01/12/19 09:59 Dose: 50 mg Pregabalin (Lyrica) 50 mg PO BID [facility] Last Admin: 01/12/19 10:02 Dose: 50 mg - Additional Findings Additional findings: - Constitutional Appears: Non-toxic, No Acute Distress - Head Exam Head Exam: ATRAUMATIC, NORMOCEPHALIC - Eye Exam Eye Exam: EOMI, Normal appearance, PERRL. absent: Conjunctival injection, Nystagmus, Periorbital swelling, Periorbital tenderness, Scleral icterus Pupil Exam: NORMAL ACCOMODATION, PERRL - ENT Exam ENT Exam: Mucous Membranes Moist, Normal Exam - Neck Exam Neck Exam: Full ROM, Normal Inspection. absent: Lymphadenopathy - Respiratory Exam Respiratory Exam: Clear to Ausculation Bilateral, NORMAL BREATHING PATTERN - Cardiovascular Exam Cardiovascular Exam: Irregular Rhythm - GI/Abdominal Exam GI & Abdominal Exam: Soft, Normal Bowel Sounds. absent: Tenderness - Extremities Exam Extremities Exam: absent: Calf Tenderness - Back Exam Back Exam: absent: CVA tenderness (L), CVA tenderness (R) - Neurological Exam Neurological Exam: Alert, Awake, Oriented x3 - Psychiatric Exam Psychiatric exam: Normal Affect, Normal Mood - Skin Skin Exam: Dry, Intact, Normal Color, Warm Assessment and Plan - Assessment and Plan (Free Text) Assessment: 83 year old female with a past medical history significant for atrial fibrillation on Eliquis, HTN, CAD, DM2 and dementia who presented initially with sepsis secondary to UTI and is now in TCU for rehabilitation. Plan: Sepsis secondary to UTI - Resolved - Antibiotics completed: Vantin PO (Day 05/27) History of Atrial Fibrillation - Continue home Metoprolol - Continue home Eliquis History of Alzheimer's Dementia - Continue home Aricept and Namenda History of CAD - Continue home daily low dose ASA History of HTN - Continue home Cozaar History of DM2 with Diabetic Neuropathy - Continue SSI-H and Accuchecks ACHS - Continue home Lyrica Ppx - GI: Pepcid - DVT: Eliquis - Diet: Heart Healthy/Carbohydrate Consistent - Code Status: Full Code Disposition: Continue physical therapy for further physical rehabilitation. PT recommends LTAC, however Patient is refusing. Will see if home with services is an option. SW consulted; recommendations appreciated. Plan is for discharge tomorrow. Patient has completed her antibiotic course (vantin 7 days/7 days completed) Patient seen and case discussed with attending, Dr. Guillermina Del Cid <Dianne Sarmiento - Last Filed: 01/13/19 15:48> Objective - Vital Signs/Intake and Output Vital Signs (last 24 hours): Temp Pulse Resp BP Pulse Ox 98.1 F 86 20 140/80 97 01/12/19 16:00 01/13/19 08:20 01/12/19 16:00 01/13/19 09:43 01/12/19 16:00 Intake and Output: 01/13/19 01/13/19 06:59 18:59 Intake Total 420 Balance 420 - Labs Labs: 01/12/19 10:10 01/12/19 10:10 Attending/Attestation - Attestation I have personally seen and examined this patient.: Yes I have fully participated in the care of the patient.: Yes I have reviewed all pertinent clinical information, including history, physical exam and plan: Yes Notes (Text): 01/13/19 15:48 Medical record note made by the resident after discussion with my direction and input after the patient was personally seen and examined by me. I have reviewed the chart and agree that the record accurately reflects by personal performance of the history, physical exam, data review, and medical decision-making, in the course for the patient. I have also personally directed the plan of care.
[2019-01-12 10:31] LABS: BASO # 0.04 K/mm3 (0.0-2.0); BASO % 0.7 % (0.0-3.0); EOS # 0.1 (0.0-0.7); EOS % 2.1 % (1.5-5.0); HEMOGLOBIN 12.7 g/dL (12.0-16.0); LYMPH # 1.9 (1.2-3.4); LYMPH % 30.8 % (22.0-35.0); MEAN CELL VOLUME 89.9 fl (80.0-105.0); MEAN CORPUSCULAR HEMOGLOBIN 28.4 pg (25.0-35.0); MEAN CORPUSCULAR HGB CONC 31.6 g/dl (31.0-37.0); MEAN PLATELET VOLUME 10.4 fl (7.0-11.0); MONO # 0.4 (0.1-0.6); MONO % 6.7 % (1.0-6.0); RBC 4.47 10^6/uL (3.5-6.1); RED CELL DISTRIBUTION WIDTH 14.9 % (11.5-14.5); WHITE BLOOD COUNT 6.1 10^3/uL (4.5-11.0)
[2019-01-12 10:41] LABS: ALBUMIN 3.6 g/dL (3.0-4.8); ALT/SGPT < 6 U/L (7-56); AST/SGOT 19 U/L (14-36); BLOOD UREA NITROGEN 14 mg/dL (7-21); CALCIUM 8.5 mg/dL (8.4-10.5); GFR NON-AFRICAN AMERICAN > 60
[2019-01-12 17:02] VITALS: RESP 20; TEMP 98.1; O2SAT 97
[2019-01-13] MEDS: Insulin Reg-HIGH-Coverage SC SCH ×2 (06:46→13:12)
[2019-01-13 08:22] VITALS: PULSE 86
[2019-01-13 09:45] VITALS: BP 140/80
--- NOTE | 2019-01-13 15:08 | CP.PCM.DIS ---
<Tarun Del Cid - Last Filed: 01/13/19 15:05> Provider - Provider Date of Admission: 01/05/19 15:30 Attending physician: Neal Montana MD Primary care physician: Dr. Nieves Consults: 01/05/19 21:09 Social Work Referral Routine Comment: DISCHARGE PLANNING WITH ASSISTANCE AT HOME Physician Instructions: Reason For Exam: EVALUATION Time Spent in preparation of Discharge (in minutes): 45 Diagnosis - Discharge Diagnosis (1) UTI (urinary tract infection) Status: Acute Priority: Medium (2) Upper respiratory infection Status: Acute Priority: Medium (3) Atrial fibrillation Status: Chronic Priority: Medium Hospital Course - Lab Results Lab Results: Most Recent Lab Values WBC 6.1 10^3/uL (4.5-11.0) 01/12/19 10:10 RBC 4.47 10^6/uL (3.5-6.1) 01/12/19 10:10 Hgb 12.7 g/dL (12.0-16.0) 01/12/19 10:10 Hct 40.2 % (36.0-48.0) 01/12/19 10:10 MCV 89.9 fl (80.0-105.0) 01/12/19 10:10 MCH 28.4 pg (25.0-35.0) 01/12/19 10:10 MCHC 31.6 g/dl (31.0-37.0) 01/12/19 10:10 RDW 14.9 % (11.5-14.5) H 01/12/19 10:10 Plt Count 166 10^3/uL (120.0-450.0) 01/12/19 10:10 MPV 10.4 fl (7.0-11.0) 01/12/19 10:10 Neut % (Auto) 59.7 % (50.0-68.0) 01/12/19 10:10 Lymph % (Auto) 30.8 % (22.0-35.0) 01/12/19 10:10 Borden % (Auto) 6.7 % (1.0-6.0) H 01/12/19 10:10 Eos % (Auto) 2.1 % (1.5-5.0) 01/12/19 10:10 Baso % (Auto) 0.7 % (0.0-3.0) 01/12/19 10:10 Lymph # (Auto) 1.9 (1.2-3.4) 01/12/19 10:10 Borden # (Auto) 0.4 (0.1-0.6) 01/12/19 10:10 Eos # (Auto) 0.1 (0.0-0.7) 01/12/19 10:10 Baso # (Auto) 0.04 K/mm3 (0.0-2.0) 01/12/19 10:10 Absolute Neuts (auto) 3.63 (1.4-6.5) 01/12/19 10:10 Sodium 138 mmol/L (132-148) 01/12/19 10:10 Potassium 4.6 mmol/L (3.6-5.0) 01/12/19 10:10 Chloride 103 mmol/L (98-107) 01/12/19 10:10 Carbon Dioxide 30 mmol/L (21-33) 01/12/19 10:10 Anion Gap 11 (10-20) 01/12/19 10:10 BUN 14 mg/dL (7-21) 01/12/19 10:10 Creatinine 0.6 mg/dl (0.7-1.2) L 01/12/19 10:10 Est GFR ( Amer) > 60 01/12/19 10:10 Est GFR (Non-Af Amer) > 60 01/12/19 10:10 POC Glucose (mg/dL) 132 mg/dL (65-110) H 01/13/19 12:32 Random Glucose 230 mg/dL (70-110) H 01/12/19 10:10 Calcium 8.5 mg/dL (8.4-10.5) 01/12/19 10:10 Total Bilirubin 0.6 mg/dL (0.2-1.3) 01/12/19 10:10 AST 19 U/L (14-36) 01/12/19 10:10 ALT < 6 U/L (7-56) L 01/12/19 10:10 Alkaline Phosphatase 48 U/L (38-126) 01/12/19 10:10 Total Protein 7.2 g/dL (5.8-8.3) 01/12/19 10:10 Albumin 3.6 g/dL (3.0-4.8) 01/12/19 10:10 Globulin 3.6 gm/dL 01/12/19 10:10 Albumin/Globulin Ratio 1.0 (1.1-1.8) L 01/12/19 10:10 - Hospital Course Hospital Course: PGY1 Discharge Summary and Hospital Course for Dr. Sarmiento 83 year old female with past medical history of atrial fibrillation on eliquis, hypertension, CAD, diabetes and dementia who presented initially with sepsis secondary to UTI. Patient was started on antibiotics with symptoms improving. Cultures have been negative to date. Patient has been transferred to TCU for therapy for deconditioning. Continued receiving antibiotics and completed her antibiotic course of vantin (x 7 days). For complete history, please see chart for details. Throughout her stay in TCU, Patient received Physical Therapy, who ultimately recommended Patient go to [facility], however Patient refused and stated she wanted to go home. On day of discharge, Patient had no acute events overnight. Patient without new complaints. Patient able to ambulate without assistance. Patient denied pain. Patient is medically optimized and clinically stable for discharge to home.Patient was provided with detailed discharge instructions provided both in writing and verbally to the level of Patient's comprehension. Patient both understands and agrees to all instructions. Please see chart for details. Discharge Instructions: - Follow up with primary care doctor within 3-5 days - Resume Januvia - Stop Amaryl (glimepiride) for now as your blood glucose has been in an accepta ble range. Check blood sugar daily and present this to your primary doctor - You may need to resume the Amaryl based on these findings. Refer to your primary doctor, whether or not to resume the Amaryl. - Take all other home medications as prescribed - Proceed to ED if symptoms return Patient seen and case discussed in detail with Dr. Guillermina Del Cid Discharge Exam - Additional Findings Additional findings: - Constitutional Appears: Non-toxic, No Acute Distress - Head Exam Head Exam: ATRAUMATIC, NORMOCEPHALIC - Eye Exam Eye Exam: EOMI, Normal appearance, PERRL. absent: Conjunctival injection, Nystagmus, Periorbital swelling, Periorbital tenderness, Scleral icterus Pupil Exam: NORMAL ACCOMODATION, PERRL - ENT Exam ENT Exam: Mucous Membranes Moist, Normal Exam - Neck Exam Neck Exam: Full ROM, Normal Inspection. absent: Lymphadenopathy - Respiratory Exam Respiratory Exam: Clear to Ausculation Bilateral, NORMAL BREATHING PATTERN - Cardiovascular Exam Cardiovascular Exam: Irregular Rhythm - GI/Abdominal Exam GI & Abdominal Exam: Soft, Normal Bowel Sounds. absent: Tenderness - Extremities Exam Extremities Exam: absent: Calf Tenderness - Back Exam Back Exam: absent: CVA tenderness (L), CVA tenderness (R) - Neurological Exam Neurological Exam: Alert, Awake, Oriented x3 - Psychiatric Exam Psychiatric exam: Normal Affect, Normal Mood - Skin Skin Exam: Dry, Intact, Normal Color, Warm Discharge Plan - Follow Up Plan Condition: GOOD Disposition: HOME/ ROUTINE Instructions: Urinary Tract Infection, Adult (DC), Diabetes Type 2 (DC), Sepsis, Adult (DC) Additional Instructions: - Follow up with primary care doctor within 3-5 days - Resume Januvia - Stop Amaryl (glimepiride) for now as your blood glucose has been in an acceptable range. Check blood sugar daily and present this to your primary doctor - You may need to resume the Amaryl based on these findings. Refer to your primary doctor, whether or not to resume the Amaryl. - Take all other home medications as prescribed - Proceed to ED if symptoms return <Dianne Sarmiento - Last Filed: 01/13/19 15:47> Provider - Provider Date of Admission: 01/05/19 15:30 Attending physician: Neal Montana MD Consults: 01/05/19 21:09 Social Work Referral Routine Comment: DISCHARGE PLANNING WITH ASSISTANCE AT HOME Physician Instructions: Reason For Exam: EVALUATION Hospital Course - Lab Results Lab Results: Most Recent Lab Values WBC 6.1 10^3/uL (4.5-11.0) 01/12/19 10:10 RBC 4.47 10^6/uL (3.5-6.1) 01/12/19 10:10 Hgb 12.7 g/dL (12.0-16.0) 01/12/19 10:10 Hct 40.2 % (36.0-48.0) 01/12/19 10:10 MCV 89.9 fl (80.0-105.0) 01/12/19 10:10 MCH 28.4 pg (25.0-35.0) 01/12/19 10:10 MCHC 31.6 g/dl (31.0-37.0) 01/12/19 10:10 RDW 14.9 % (11.5-14.5) H 01/12/19 10:10 Plt Count 166 10^3/uL (120.0-450.0) 01/12/19 10:10 MPV 10.4 fl (7.0-11.0) 01/12/19 10:10 Neut % (Auto) 59.7 % (50.0-68.0) 01/12/19 10:10 Lymph % (Auto) 30.8 % (22.0-35.0) 01/12/19 10:10 Borden % (Auto) 6.7 % (1.0-6.0) H 01/12/19 10:10 Eos % (Auto) 2.1 % (1.5-5.0) 01/12/19 10:10 Baso % (Auto) 0.7 % (0.0-3.0) 01/12/19 10:10 Lymph # (Auto) 1.9 (1.2-3.4) 01/12/19 10:10 Borden # (Auto) 0.4 (0.1-0.6) 01/12/19 10:10 Eos # (Auto) 0.1 (0.0-0.7) 01/12/19 10:10 Baso # (Auto) 0.04 K/mm3 (0.0-2.0) 01/12/19 10:10 Absolute Neuts (auto) 3.63 (1.4-6.5) 01/12/19 10:10 Sodium 138 mmol/L (132-148) 01/12/19 10:10 Potassium 4.6 mmol/L (3.6-5.0) 01/12/19 10:10 Chloride 103 mmol/L (98-107) 01/12/19 10:10 Carbon Dioxide 30 mmol/L (21-33) 01/12/19 10:10 Anion Gap 11 (10-20) 01/12/19 10:10 BUN 14 mg/dL (7-21) 01/12/19 10:10 Creatinine 0.6 mg/dl (0.7-1.2) L 01/12/19 10:10 Est GFR ( Amer) > 60 01/12/19 10:10 Est GFR (Non-Af Amer) > 60 01/12/19 10:10 POC Glucose (mg/dL) 132 mg/dL (65-110) H 01/13/19 12:32 Random Glucose 230 mg/dL (70-110) H 01/12/19 10:10 Calcium 8.5 mg/dL (8.4-10.5) 01/12/19 10:10 Total Bilirubin 0.6 mg/dL (0.2-1.3) 01/12/19 10:10 AST 19 U/L (14-36) 01/12/19 10:10 ALT < 6 U/L (7-56) L 01/12/19 10:10 Alkaline Phosphatase 48 U/L (38-126) 01/12/19 10:10 Total Protein 7.2 g/dL (5.8-8.3) 01/12/19 10:10 Albumin 3.6 g/dL (3.0-4.8) 01/12/19 10:10 Globulin 3.6 gm/dL 01/12/19 10:10 Albumin/Globulin Ratio 1.0 (1.1-1.8) L 01/12/19 10:10 Attending/Attestation - Attestation I have personally seen and examined this patient.: Yes I have fully participated in the care of the patient.: Yes I have reviewed all pertinent clinical information, including history, physical exam and plan: Yes Notes (Text): 01/13/19 15:42 Medical record note made by the resident after discussion with my direction and input after the patient was personally seen and examined by me. I have reviewed the chart and agree that the record accurately reflects by personal performance of the history, physical exam, data review, and medical decision-making, in the course for the patient. I have also personally directed the plan of care. 83 year old female with PMH of afib on eliquis, CAD, hypertension, diabetes and dementia was initially admitted to [facility] inpatient with sepsis secondary to UTI. She responded well to antibiotics and was later transferred to TCU for rehabilitation. She has completed antibiotics. Cultures were negative to date. Heart rate is controlled with metoprolol and is on anticoagulation with eliquis . She is also on cozaar for hypertension. Long tern NH placement was recommended by PT but patient refused . She will be discharged home and will follow up with PMD.Her Amaryl is on hold at the time of discharge.She has been advised to monitor blood sugars and keep record for PMD. Management plan was discussed in detail with patient. Education was provided. 01/13/19 15:47
== END 2019-01-13 14:19 | disposition home or self-care (01) | DRG 690 ==
LOC: TRCU 15:30
PROVIDERS: ADMIT Internal Medicine; ATTEND Internal Medicine
PROC: F07Z9FZ Gait Training/Functional Ambulation Treatment using Assistive, Adaptive, Supportive or Protective Equipment (ICD-10-PCS; principal; 2019-01-07)
PROC: F07L6ZZ Therapeutic Exercise Treatment of Musculoskeletal System - Lower Back / Lower Extremity (ICD-10-PCS; 2019-01-07)
PROC: F08Z1FZ Dressing Techniques Treatment using Assistive, Adaptive, Supportive or Protective Equipment (ICD-10-PCS; 2019-01-07)
PROC: F07Z8ZZ Transfer Training Treatment (ICD-10-PCS; 2019-01-08)
PROC: F08Z2FZ Grooming/Personal Hygiene Treatment using Assistive, Adaptive, Supportive or Protective Equipment (ICD-10-PCS; 2019-01-09)
DX: N39.0 Urinary tract infection, site not specified (principal); E11.42 Type 2 diabetes mellitus with diabetic polyneuropathy; I10 Essential (primary) hypertension; I48.91 Unspecified atrial fibrillation; I25.10 Atherosclerotic heart disease of native coronary artery without angina pectoris; J06.9 Acute upper respiratory infection, unspecified; G30.9 Alzheimer's disease, unspecified; F02.80 Dementia in other diseases classified elsewhere, unspecified severity, without behavioral disturbance, psychotic disturbance, mood disturbance, and anxiety; Z87.891 Personal history of nicotine dependence; Z79.01 Long term (current) use of anticoagulants; Z95.1 Presence of aortocoronary bypass graft; Z95.5 Presence of coronary angioplasty implant and graft; Z79.84 Long term (current) use of oral hypoglycemic drugs

== ENCOUNTER 2019-03-29 07:24 | Outpatient (CLI) | payer MEDICARE, SELFPAY | END 2019-03-29 07:25 | disposition home or self-care (01) | LOC: CARDIO 07:24 ==